=== PATIENT | male | born 1970 | race Two or more races ===

== ENCOUNTER 2025-04-07 10:44 | Inpatient (IN) | payer MEDICAID, SELFPAY ==
[2025-04-07] VITALS (7 sets, daily range): BP systolic 138–159; BP diastolic 72–82; PULSE 84–101; RESP 17–19; TEMP 37.4–38.7; O2SAT 98–100; BMI 23.8; BMI 23.5
--- NOTE | 2025-04-07 11:31 | XR_ITS ---
Examination: CT abdomen with intravenous contrast CT pelvis with intravenous contrast 2-D coronal reconstructions 2-D sagittal reconstructions Date and time of exam:April 07, 2025, 1930 hrs., Comparison July 17, 2021 Indications: Cirrhosis, vomiting blood this morning. CTDI: vol (mGy) 6.54 DLP: (mGycm) 407 Technique: Multiple axial sections of the abdomen and pelvis have been obtained. 64 slice high-resolution scanner used. 3 mm axial sections have been obtained, post intravenous injection 60 cc [id number] 2-D sagittal, coronal reconstructions obtained. Low dose protocols were performed. One or more of the following dose reduction techniques were used; automated exposure control, adjustment of the mA and/or KV according to patient size, use of iterative reconstruction technique. Findings: Mild to moderate enlargement left atrium No aspiration pneumonia Cirrhosis, 7 mm lesion upper right lobe of the liver Prominent splenomegaly Mild ascites Thickened gallbladder wall up to 5 mm Esophageal varices Perigastric varices Portosystemic collateral vessels medial to the spleen No pancreatic mass No common bile duct stones Aorta normal size Gastric mucosa is diffusely thickened Minimal right hydronephrosis Thickening of small bowel loops no obstruction Normal appendix Marked thickening of urinary bladder wall No significant prostatomegaly Marked thickening of the rectal wall Prominent osteopenia Impression: Cirrhosis Prominent splenomegaly 17 mm lesion upper right lobe of the liver, recommend MRI abdomen liver follow-up pre and postcontrast to exclude early hepatocellular carcinoma Mild ascites Technique the gallbladder wall, recommend repeat gallbladder sonography Esophageal varices Perigastric varices Gastritis Portal hypertension Hepatic colopathy, hepatic enteropathy Severe thickening of urinary bladder wall, consider cystitis bladder carcinoma not excluded Marked thickening of the rectal wall, recommend direct inspection
--- NOTE | 2025-04-07 11:32 | PD.EDRME ---
Rapid Medical Screening Exam RME Arrival date/time: 04/07/25 10:44 54-year-old male with history of alcohol cirrhosis presents to the emergency department today for complaints of abdominal cramping and episode of vomiting blood today Chief Complaint: GI Bleed
[2025-04-07 12:00] LABS: Basophils # (Auto) 0.0 Thou/mm3 (0.0-0.2); Basophils % (Auto) 1 % (0-2.5); Eosinophils # (Auto) 0.0 Thou/mm3 (0.0-0.5); Eosinophils % (Auto) 0 % (0-10); Hematocrit 29.3 % (41.0-53.0); Hemoglobin 9.5 g/dL (13.5-16.0); Immature Granulocytes Auto 0.03 Thou/mm3 (0.00-0.00); Lymphocytes # (Auto) 0.5 Thou/mm3 (1.0-4.8); Lymphocytes % (Auto) 8 % (10-50); Mean Corpuscular HGB Conc 32.4 g/dl (31.0-37.0); Mean Corpuscular Hemoglobin 26.3 pg (25.0-35.0); Mean Corpuscular Volume 81 fL (80-100); Monocytes # (Auto) 0.6 Thou/mm3 (0.0-0.8); Monocytes % (Auto) 10 % (0-12); Neutrophils # (Auto) 5.1 Thou/mm3 (1.8-7.7); Neutrophils % (Auto) 80 % (37-80); Nucleated Red Blood Cell # 0.00 Thou/mm3 (0.00-0.00); Nucleated Red Blood Cell % 0 /100 WBC (0); Platelet Count 82 Thou/mm3 (140-440); RDW Standard Deviation 59.8 fL (35.1-43.9); Red Blood Count 3.61 Miln/mm3 (4.50-5.90); White Blood Count 6.3 Thou/mm3 (3.8-10.6)
[2025-04-07 12:15] LABS: Alanine Aminotransferase 25 U/L (10-49); Albumin, Serum 3.6 gm/dL (3.5-5.0); Albumin/Globulin Ratio 1.1 (1.2-2.2); Alcohol, Blood Medical < 10.0 mg/dL (0-10.0); Alkaline Phosphatase 147 U/L (46-116); Amylase 110 U/L (30-118); Anion Gap 8 (7-16); Aspartate Amino Transferase 97 U/L (0-34); BUN/Creatinine Ratio 15 Ratio (12-20); Bilirubin,Total 2.5 mg/dL (0.3-1.2); Blood Urea Nitrogen 9 mg/dL (9-23); Calcium 8.5 mg/dL (8.3-10.6); Calcium (Corrected) 8.8 mg/dL (8.5-10.1); Carbon Dioxide 23.6 mMol/L (20.0-31.0); Chloride 106 mMol/L (98-107); Creatinine (Component) 0.6 mg/dL (0.6-1.3); Estimated Creatinine Clearance 149.9 mL/min (>60); Globulin 3.3 gm/dL (2.3-3.5); Glucose 162 mg/dL (74-106); Osmolality,Calculated 278 (275-295); Potassium 4.4 mMol/L (3.4-5.1); Sodium 138 mMol/L (136-145); Total Protein 6.9 gm/dL (5.7-8.2); eGFR > 60 See Note
[2025-04-07 12:17] LABS: INR 1.4 (0.9-1.3); Partial Thromboplastin Time 31.3 Seconds (22.0-36.0); Prothrombin Time 14.5 Seconds (9.0-12.2)
[2025-04-07 12:31] LABS: Amphetamine/Methamp Scrn,U Negative (Negative); Barbiturate Screen,Urine Negative (Negative); Benzodiazepines Screen,Urine Negative (Negative); Benzoylecgonine Screen, Ur Negative (Negative); Fentanyl Screen,Urine Negative (Negative); Opiate Screen,Urine Negative (Negative); THC Screen,Urine Negative (Negative)
--- NOTE | 2025-04-07 13:24 | PC.NURSE ---
CALLED CT, NO ANSWER.
--- NOTE | 2025-04-07 14:21 | PC.NURSE ---
PT WAITING FOR ROOM IN THE BACK TO GET IV AND IV MEDS. WILL GET CT AT THAT TIME.
--- NOTE | 2025-04-07 16:04 | PD.EDGIBLD ---
ED GI Bleed RME/HPI General Chief complaint: GI Bleed Stated complaint: VOMITING BLOOD THIS AM, HX CIRRHOSIS Time Seen by Provider: 04/07/25 14:02 Arrival date/time: 04/07/25 10:44 RME / HPI RME / HPI Narrative: 54-year-old male with history of alcohol cirrhosis presents to the emergency department today for complaints of abdominal cramping and episode of vomiting blood today, severity moderate. Patient also complained that the stool looks darker than usual. Patient continued to drink alcohol, consuming more than 5 tall cans of beers every day last drink yesterday. He was admitted in this hospital more than a year ago for upper GI bleed. Currently not taking any medication. Related Data Previous Rx's ?Medication ?Instructions ?Recorded ferrous sulfate 325 mg (65 mg 325 mg PO Q OTHER DAY #90 tabs 01/04/24 iron) tablet folic acid 1 mg tablet 1 mg PO QDAY #90 tabs 01/04/24 pantoprazole 40 mg tablet,delayed 40 mg PO QDAY #90 tabs 01/04/24 release thiamine HCl (vitamin B1) 100 mg 100 mg PO QDAY #90 tabs 01/04/24 tablet Allergies Allergy/AdvReac Type Severity Reaction Status Date / Time No Known Allergies Allergy Verified 10/30/23 18:27 Review of Systems Review of Systems Narrative Review of Systems: Review of system reviewed and within normal limits except mentioned in HPI ED Exam Narrative Physical exam: VITAL SIGNS: Reviewed. GENERAL APPEARANCE: Alert and interactive, follows commands, no acute distress, HEAD AND FACE: Non-traumatic. ENT: PERRL, pink conjunctivitis, eyelid no trauma, Mucous membrane moist. NECK: Supple, nontender, no nuchal rigidity. CHEST: No tenderness, no crepitus, no paradoxical movement, no retractions. LUNGS: Clear, well ventilated, symmetric, no rales, no wheezing, no ronchi, no stridor, good breath sounds bilaterally. HEART: Regular rate, regular rhythm, no murmur, no gallops. ABDOMEN: Soft, positive bowel sounds, nondistended, no guarding, nontender, no rebound, no masses, RECTAL: Deferred. GENITAL: Deferred. NEUROLOGICAL: Gross motor function intact sensory function intact, Appropriate for age. MUSCULOSKELETAL: low back nontender, full range of motion. EXTREMITIES: Nontender, full range of motion. SKIN: Color pink, dry, no rash, no lacerations, no abrasions, no contusions. LYMPHATICS: Deferred. Course Quality Measures none Orders Category Date Time Status COVID-19 Screening Questionnaire NOW Care 04/07/25 19:[address] Screening NOW Care 04/07/25 11:31 Active Decision to Admit X1 Care 04/07/25 19:42 Active NPO NOW Care 04/07/25 19:37 Active Occult Blood,Stool (Nursing) ONCE Care 04/07/25 16:03 Active Consult to Gastroenterology Stat Cons 04/07/25 16:04 Ordered Diet NPO (NOW) Diet 04/07/25 19:[address] abdomen pelvis w con Stat Exams 04/07/25 11:31 Completed XR chest 1V Stat Exams 04/07/25 18:55 Completed Alcohol, Blood Medical Stat Lab 04/07/25 11:41 Completed Amylase Stat Lab 04/07/25 11:41 Completed CBC Stat Lab 04/07/25 11:41 Completed Comprehensive Metabolic Panel Stat Lab 04/07/25 11:41 Completed Drug Screen,Urine Stat Lab 04/07/25 12:05 Completed Partial Thromboplastin Time Stat Lab 04/07/25 11:41 Completed Prothrombin Time with INR Stat Lab 04/07/25 11:41 Completed UA, C/S IF [Urinalysis, C/S if Indicated] Stat Lab 04/07/25 19:25 Completed Urine Culture Stat Lab 04/07/25 19:25 Received Acetaminophen Tab [Tylenol ES Tab] Med 04/07/25 19:05 Discontinued 1,000 mg PO X1 ONE Octreotide Acet Inj [SandoSTATIN Inj] Med 04/07/25 16:03 Discontinued 50 mcg IV X1 ONE Pantoprazole Inj [Protonix Inj] Med 04/07/25 11:31 Discontinued 80 mg IVP X1 ONE Sodium Chloride 0.9% [Ns] 100 ml Med 04/07/25 16:15 Active Octreotide Acet Inj [SandoSTATIN Inj] 1,000 mcg IV 50 mcg/hr Sodium Chloride 0.9% [Ns] 100 ml Med 04/08/25 12:15 Pending Octreotide Acet Inj [SandoSTATIN Inj] 1,000 mcg IV 50 mcg/hr cefTRIAXone/D5w 1gm IV premix [Rocephin/D5w 1gm IV Med 04/07/25 18:55 Discontinued premix] 1 gm in 50 ml IV X1 Vital Signs Vital signs: Vital Signs Temperature 99.8 F 04/07/25 11:36 Pulse Rate 101 H 04/07/25 11:36 Respiratory Rate 18 04/07/25 11:36 Blood Pressure 138/72 H 04/07/25 11:36 Pulse Oximetry (%) 99 04/07/25 11:36 Oxygen Delivery Method Room Air 04/07/25 11:36 GI Bleed MDM Narrative MDM Narrative:: 54-year-old male with history of alcohol cirrhosis presents to the emergency department today for complaints of abdominal cramping and episode of vomiting blood today, severity moderate. Patient also complained that the stool looks darker than usual. Patient continued to drink alcohol, consuming more than 5 tall cans of beers every day last drink yesterday. He was admitted in this hospital more than a year ago for upper GI bleed. Currently not taking any medication. Rectal exam was done by me, and tested positive strongly with occult blood. Patient's hemoglobin today was noted to be 5.5 hematocrit of 29.3. Was given IV Protonix IV Sandostatin and Sandostatin drip. Patient's urinalysis positive for UTI. Chest x-ray is negative for aspiration pneumonia. Patient was given ceftriaxone IV. Spoke with Dr. Wagner, GI specialist on-call, thank you Dr. Wagner Patient data External records reviewed:: None Clinical information provided by:: patient Social determinants that could affect healthcare access:: alcohol use Patient has the following chronic illnesses:: Liver cirrhosis, history of upper GI bleed How is presenting disease/condition affected by chronic disease/condition?: exacerbated by Evaluation data The following diagnostics were reviewed and interpreted by me:: lab results and radiology exam(s) Lab and/or radiology exams considered but not ordered:: Meds Interpretation Summary: See results and MDM Medications / Prescriptions Medications or Prescriptions considered but not ordered:: None Medication administrations:: Medication Administration History Acetaminophen (Acetaminophen 325 Mg Tablet) 650 mg PO Q6HR PRN PRN Reason: Fever >100.4 and pain Stop: 05/07/25 21:00 Octreotide Acetate 1,000 mcg/ (Sodium Chloride) 102 mls @ 5.1 mls/hr IV .Q20H CARLENE; Protocol Stop: 05/08/25 12:14 Octreotide Acetate 1,000 mcg/ (Sodium Chloride) 102 mls @ 5.1 mls/hr IV .Q20H ONE; Protocol Stop: 04/08/25 12:14 Last Admin: 04/07/25 16:31 Dose: 50 mcg/hr, 5.1 mls/hr Documented By: NURY Ceftriaxone Sodium/Dextrose (Rocephin/D5w 1gm Iv Premix) 1 gm in 50 mls @ 100 mls/hr IV QDAY CARLENE Stop: 04/14/25 20:59 Pantoprazole Sodium (Pantoprazole Inj 40 Mg Vial) 40 mg IVP BID CARLENE Stop: 05/07/25 20:59 Discontinued Medications Acetaminophen (Acetaminophen 500 Mg Tablet) 1,000 mg PO X1 ONE Stop: 04/07/25 19:06 Last Admin: 04/07/25 19:15 Dose: 1,000 mg Documented By: JOHANN Ceftriaxone Sodium/Dextrose (Rocephin/D5w 1gm Iv Premix) 1 gm in 50 mls @ 100 mls/hr IV X1 ONE Stop: 04/07/25 19:24 Last Infusion: 04/07/25 20:17 Dose: Infused Documented By: Admin: 04/07/25 19:23 Dose: 100 mls/hr Documented By: JOHANN Octreotide Acetate (Octreotide Acet Inj 50 Mcg/Ml Vial) 50 mcg IV X1 ONE Stop: 04/07/25 16:04 Last Admin: 04/07/25 16:32 Dose: 50 mcg Documented By: NURY Pantoprazole Sodium (Pantoprazole Inj 40 Mg Vial) 80 mg IVP X1 ONE Stop: 04/07/25 11:32 Last Admin: 04/07/25 16:31 Dose: 80 mg Documented By: NURY See results [facility] Consultations Consultation(s) initiated? (list below): Yes Diagnosis GI bleed differential diagnosis: Upper gastrointestinal hemorrhage and hematochezia Most likely diagnosis given after review of the tests above:: UTI, upper GI bleeding, chronic alcoholism liver cirrhosis Admission Indicated Admission indicated?: indicated Admission Request Was there a request for admission?: Yes Admission Attestation Admission request attestation: Discussed case with [Lainey ] from Hospitalist service regarding admission. Discussed patients ED course, exam findings, labs, and radiology results. The Hospitalist [agrees] to accept the patient for admission. Disposition Plan Disposition Plan: Admit Discharge Plan Plan Patient Disposition: Admit Acute Care w/in Hospital Discharge Disposition comment: Stable Problem List Clinical Impression: Acute upper GI bleed, UTI (urinary tract infection), Alcoholism, chronic, Cirrhosis of liver
[2025-04-07] MEDS: OCTREOTIDE ACET INJ 1,000 MCG in SODIUM CHLORIDE 0.9% 100 ML 5.1 MCG IV (16:31)
[2025-04-07] MEDS: OCTREOTIDE ACET INJ 50 mCg/ML VIAL IV (16:32)
--- NOTE | 2025-04-07 18:55 | XR_ITS ---
Examination: AP chest single view Technique: Portable sitting AP chest single view Date and time: April 07, 2025, 1859 hrs., Comparison July 04, 2022 Indications: Shortness of breath today. Findings: Minimal prominence left ventricle Ectatic thoracic aorta. Accentuation basilar bronchovascular markings. No lobar pneumonia or pulmonary edema. Moderate osteopenia Impression: Mild basilar bronchitis pattern
[2025-04-07] MEDS: ACETAMINOPHEN 500 MG TABLET 1000 MG PO (19:15)
[2025-04-07] MEDS: cefTRIAXone/D5w 1gm IV premix 1 GM/50 ML BAG IV (19:23)
[2025-04-07 19:39] LABS: Collection Type, Urine Clean Catch; Squamous Epithelial Cell,Urine 0 /hpf (0-5)
[2025-04-07 19:48] LABS: Bacteria,Urine 2+; Bilirubin,Urine Negative (Negative); Blood,Urine 1+ (Negative); Clarity,Urine Turbid (Clear/Hazy); Color,Urine Yellow (Lt Yel-Yel); Glucose, Urine Negative (Negative); Ketones,Urine Negative (Negative); Leukocyte Esterase,Urine Positive (Negative); Nitrite,Urine Positive (Negative); PH,Urine 7.5 (5.0-7.0); Protein,Urine 1+ (Neg - Trace); RBC,Urine 29 /hpf (0-3); Specific Gravity,Urine 1.039 (1.001-1.035); Urobilinogen,Urine Negative mg/dL (0.0-1.0); WBC,Urine 328 /hpf (0-5)
[2025-04-07 19:49] LABS: Culture Indicated,Urine Yes
--- NOTE | 2025-04-07 21:02 | ESHP_ITS ---
Documentation for date of: 04/07/25 [facility] History of Present Illness History of present illness: Mr. Castillo is a 54 year-old with past medical history of chronic alchohol use, liver cirrhosis, esophageal varices s/p banding who presented to the ED on 04/07/2025 with chief complaint of with vomiting, nausea, abdominal pain. Patient reports N/V and abdominal pain that started around 8am this morning. Patient endorse 3-4 episodes of hematemesis associated with intermittent nausea. Patient prior admission for esophageal varices last year. Found to have esophageal varices grade 3 for which was banded and ligated. Patient and sent home with Protonix. Patient also endorses acute onset lower quadrant crampy abdominal pain associated with melena. Patient reports he did not have melena on his previous admission. Patient states he has recent sick contact, was tested positive for COVID last week. He denies fever, chills, generalized bodyaches, pain headaches chest pain, shortness of breath and urinary symptoms. ED Course: - Initial vitals were BP 138/72, pulse 101, respiratory 18, temp 101.6, O2 sat 95% on room air - Labs on admission were significant for RBC 3.61, hemoglobin 9.5, hematocrit 29.3, Plt 82, PT 14.5, INR 1.4. T. bili 2.5, AST 97, alkaline phos 147 - UA showed pH 7.5, urine blood +1, leukocyte esterase positive, urine RBC 29, urine WBC 328, urine bacteria 2+ -YELITZA positive occult blood - COVID1 POSITIVE -Imaging included abdominal/pelvis CT shows cirrhosis, prominent splenomegaly Esophageal varices, perigastric varices, gastritis, portal hypertension, hepatic colopathy, hepatic enteropathy. Severe thickening of urinary bladder wall, marked thickening of the rectal wall, 17 mm lesion upper right lobe of the liver. Chest x-ray showed mild bibasilar similar bronchitis pattern -In the ED, patient was given Protonix 80 mg x 1, octreotide drip plus octreotide 15 mcg IV x 1, Tylenol -ED EMERGENCY ROOM DOCTOR consulted Dr. Wagner, GI specialist. Will admit for EGD tomorrow -Patient was admitted for upper GI bleed evaluation and management. Review of Systems Review of systems otherwise negative except what is mentioned above. Past Medical History: Noncontributory Family History: Cancer, [place], aunt- from cirrhotic liver. Surgical History: varices s/p banding previously followed Dr. Wagner, Social History: Drinks alcohol 12 packs of beer every day, chronic alcohol for 20 years Denies smoking or using illicit drug Occupation [employer]. . Current Medications: Protonix 40 mg Allergies: No known drug allergies Exam Vital Signs Temp Pulse Resp BP Pulse Ox O2 Del Method 100.5 F H 90 18 159/76 H 98 Room Air 04/07/25 20:28 04/07/25 18:52 04/07/25 18:52 04/07/25 18:52 04/07/25 18:52 04/07/25 18:52 Narrative Exam General: Patient appears flushed. No sweating or diaphoresis present. Skin: Warm, dry, intact. No rash or ecchymoses. Head: Normocephalic, atraumatic. Eye: Mild scleral icterus. PERRL. Throat: Oral mucosa moist. No obvious lesions in oropharynx. Cardiovascular: Regular rate and rhythm, no murmur, +S1/S2. Respiratory: Lungs are clear to auscultation, respirations unlabored, no crackles, no wheezing. Gastrointestinal: Soft, nontender, non-distended. No guarding or rebound tenderness. Extremities:Mild hand tremor noted on elevation. No edema, no cyanosis, no clubbing. Neuro: Alert and oriented x3.No focal deficits observed. Conversant, moving all extremities. Psychiatric: Cooperative, appropriate affect Results: Labs 04/11/25 05:46 04/11/25 05:46 Labs: Short CBC 04/07/25 Range/Units 11:41 WBC 6.3 (3.8-10.6) Thou/mm3 Hgb 9.5 L (13.5-16.0) g/dL Hct 29.3 L (41.0-53.0) % Plt Count 82 L (140-440) Thou/mm3 BMP 04/07/25 11:41 Sodium 138 Potassium 4.4 Chloride 106 Carbon Dioxide 23.6 BUN 9 Creatinine 0.6 Glucose 162 H Calcium 8.5 Liver Function 04/07/25 Range/Units 11:41 Total Bilirubin 2.5 H (0.3-1.2) mg/dL AST 97 H (0-34) U/L ALT 25 (10-49) U/L Alkaline Phosphatase 147 H (46-116) U/L Albumin 3.6 (3.5-5.0) gm/dL Urine 04/07/25 Range/Units 19:25 Urine Color Yellow (Lt Yel-Yel) Urine Clarity Turbid A (Clear/Hazy) Urine pH 7.5 H (5.0-7.0) Ur Specific Fouke 1.039 H (1.001-1.035) Urine Protein 1+ A (Neg - Trace) Urine Glucose (UA) Negative (Negative) Quality Measures Quality Measures VTE prophylaxis Medications Home Medications and Allergies Allergies Allergy/AdvReac Type Severity Reaction Status Date / Time No Known Allergies Allergy Verified 10/30/23 18:27 Visit Medications Acetaminophen (Acetaminophen 325 Mg Tablet) 650 mg PO Q6HR PRN PRN Reason: Fever >100.4 and pain Stop: 05/07/25 21:00 Octreotide Acetate 1,000 mcg/ (Sodium Chloride) 102 mls @ 5.1 mls/hr IV .Q20H CARLENE; Protocol Stop: 05/08/25 12:14 Octreotide Acetate 1,000 mcg/ (Sodium Chloride) 102 mls @ 5.1 mls/hr IV .Q20H ONE; Protocol Stop: 04/08/25 12:14 Last Admin: 04/07/25 16:31 Dose: 50 mcg/hr, 5.1 mls/hr Ceftriaxone Sodium/Dextrose (Rocephin/D5w 1gm Iv Premix) 1 gm in 50 mls @ 100 mls/hr IV QDAY CARLENE Stop: 04/14/25 20:59 Pantoprazole Sodium (Pantoprazole Inj 40 Mg Vial) 40 mg IVP BID CARLENE Stop: 05/07/25 20:59 Discontinued Medications Acetaminophen (Acetaminophen 500 Mg Tablet) 1,000 mg PO X1 ONE Stop: 04/07/25 19:06 Last Admin: 04/07/25 19:15 Dose: 1,000 mg Ceftriaxone Sodium/Dextrose (Rocephin/D5w 1gm Iv Premix) 1 gm in 50 mls @ 100 mls/hr IV X1 ONE Stop: 04/07/25 19:24 Last Infusion: 04/07/25 20:17 Dose: Infused Octreotide Acetate (Octreotide Acet Inj 50 Mcg/Ml Vial) 50 mcg IV X1 ONE Stop: 04/07/25 16:04 Last Admin: 04/07/25 16:32 Dose: 50 mcg Pantoprazole Sodium (Pantoprazole Inj 40 Mg Vial) 80 mg IVP X1 ONE Stop: 04/07/25 11:32 Last Admin: 04/07/25 16:31 Dose: 80 mg Assessment & Plan Plan Mr. Castillo is a 54 year-old with past medical history of chronic alchohol use, liver cirrhosis, esophageal varices s/p banding who presented to the ED on 04/07/2025 with chief complaint of with vomiting, hemetamesis, crampy abdominal pain. Admitted for UGIB evaluation and management. #Upper vs Lower GI 2/2 #Cirrhotic liver disease with advanced portal hypertension #Chronic alcohol use #Esophageal varices #Mild ascites #Gastritis #Hepatic enteropathy The patient has a history of chronic alcohol use and was previously treated for grade 3 esophageal varices with oozing blood and esophageal ulcers, which were banded and ligated. Presenting with nausea, hematemesis, and new melena, the patient continues to drink 16 cans of beer daily despite being aware of his cirrhotic liver. Chronic alcohol use has likely contributed to the progression of cirrhosis, worsening portal hypertension and leading to liver decompensation. This ongoing liver injury and increased portal pressure predispose the patient to recurrent variceal bleeding and other complications. CT abd/pelvis: cirrhosis, prominent splenomegaly Esophageal varices, perigastric varices, gastritis, portal hypertension, hepatic colopathy, hepatic enteropathy. T. bili 2.5, AST 97, alkaline phosphatase 147 SAAG>1.1 - indicating portal HTN Child-Escobar Score 9, CLASS C- End-stage cirrhosis with very poor prognosis. MELD Score 14- estimated 3-month mortality, worsen from last admission - Started ceftriaxone 1 g IV daily for SBP prophylaxis - Octreotide infusion at 50 mcg/h after loading dose of 50 mcg - Started Vitamin B1 100 mg qday - Started folic acid 1 mg qday - Started Protonix 40 mg - Advised complete abstinence of alcohol - Watch for alcohol withdrawal, follow [facility] protocol - GI consulted, recommend- NPO, EGD tomorrow #Microcytic anemia, chronic #Thrombocytopenia #Coagulopathy On admission hemoglobin hematocrit 29.3. Patient is actively bleeding with hematemesis and melena. PT 14.5 and INR 1.4, Plt 82. Coagulopathy given impaired liver function leading to reduced production of clotting and anticoagulant factors. -Type and screen -continue to monitor CBC -Transfuse if Hg<7 #Incidental CT finding of RUL Liver lesion #?Hepatocelluar carcinoma #Spenomegaly Likely secondary to decompensated liver cirrhosis. 17 mm lesion upper right lobe of the liver. - Radiology radiology recommend: MRI abdomen liver and follow-up pre and postcontrast to exclude early hepatocellular carcinoma #Positive COVID-19 Patient has recent sick contact, his . However he denies cough, fever, chills, body aches. On admission patient was febrile with temperature 101.6, WBC normal. Given Tylenol x1, fever resolve. CXR negative for pneumonia - Continue to monitor - Droplet and airborne precaution. #?Left bundle branch block Patient denies chest pain, palpitation. Troponin are negative. EKG showed sinus rhythm with possible left bundle branch block, QTc 487 - Consider consulting cardiology - continue to monitor on telemtry #Asymptomatic Pyuria Patient denies dysuria, urgency or frequency. UA positive for leukocyte esterase, urine RBC 29, urine WBC 328. U tox negative -Continue to monitor Hospital management: Lines: peripheral IV Diet: NPO GI prophylaxis: pantoprazole DVT prophylaxis: SCDs Disposition: tele for management of GIB CODE STATUS: Full code Patient seen and assessed under supervision of attending physician Dr. Meneses and discuss with senior resident Dr. Chew PGY-2 Krystle Cunningham MD PGY-1, Internal Medicine Please note: this document was transcribed using voice recognition technology; minor inaccuracies may be present. Attending Provider Attestation/Addendum I have examined the patient, reviewed labs and imaging findings, discussed the case with the resident(s), and reviewed entered orders. I agree with the plan of care as outlined in this note, with these additional summaries/recommendations: 54-year-old male with past medical history of alcohol use disorder complicated by cirrhosis of the liver with history of variceal bleeding presents to the ED with chief complaint of hematemesis. Reports 2 episodes prior to admission. Patient reports his last drink was approximately 36 hours ago when he had 6 beers. He reports a period of approximately 6 months after his previous admission for variceal bleeding where he stopped drinking. states that after he began feeling better, the drinking resumed. CT abdomen showed signs consistent with cirrhosis, portal hypertension, splenomegaly, 17 mm focal liver lesion concerning for HCC. He will be admitted for further workup and management of acute upper GI bleed, will initiate octreotide, Protonix, pending EGD. Luis Engel MD
--- NOTE | 2025-04-07 21:54 | PD.IMCONS ---
HPI Data of Consult Requesting Physician: Luis Engel MD Primary Care Provider: Physician No Primary/Family Consult Narrative Reason for consult: Hematemesis History of present illness: 54 years old male presented to the hospital with episodes of hematemesis with nausea vomiting abdominal pain and cramping He does have a history of excessive alcohol consumption drinking about 3-5 tall cans of beer every day He has been drinking up until yesterday He has been having dark melanotic stools also Presenting hemoglobin hematocrit 9.5 and 29.3 with a platelet count of 82,000 CT scan of the abdomen pelvis contrast shows cirrhosis splenomegaly 17 mm right lobe liver lesion and evidence of portal hypertension with periesophageal varices cc:: cc: Luis Engel MD Review of Systems Review of Systems Systems Reviewed: All systems reviewed, normal except as documented Past Medical History Surgical History OTHER SURGICAL HX: As in the history of present illness Meds Home Medications and Allergies Home Medications ?Medication ?Instructions ?Recorded ?Confirmed ?Type No Known Home Medications 04/08/25 04/08/25 History Allergies Allergy/AdvReac Type Severity Reaction Status Date / Time No Known Allergies Allergy Verified 10/30/23 18:27 Exam Vital Signs Temp Pulse Resp BP Pulse Ox O2 Del Method 100 F 84 19 147/77 H 98 Room Air 04/07/25 21:11 04/07/25 21:11 04/07/25 21:11 04/07/25 21:11 04/07/25 21:11 04/07/25 21:11 Constitutional Comments: Chronically ill-appearing Routine Respiratory Exam Comments: Normal to auscultation Routine Abdominal Exam Comments: Positive bowel sounds Results Labs 04/08/25 04:45 04/08/25 04:45 Labs: Short CBC 04/07/25 Range/Units 11:41 WBC 6.3 (3.8-10.6) Thou/mm3 Hgb 9.5 L (13.5-16.0) g/dL Hct 29.3 L (41.0-53.0) % Plt Count 82 L (140-440) Thou/mm3 BMP 04/07/25 11:41 Sodium 138 Potassium 4.4 Chloride 106 Carbon Dioxide 23.6 BUN 9 Creatinine 0.6 Glucose 162 H Calcium 8.5 Liver Function 04/07/25 Range/Units 11:41 Total Bilirubin 2.5 H (0.3-1.2) mg/dL AST 97 H (0-34) U/L ALT 25 (10-49) U/L Alkaline Phosphatase 147 H (46-116) U/L Albumin 3.6 (3.5-5.0) gm/dL Urine 04/07/25 Range/Units 19:25 Urine Color Yellow (Lt Yel-Yel) Urine Clarity Turbid A (Clear/Hazy) Urine pH 7.5 H (5.0-7.0) Ur Specific [place] 1.039 H (1.001-1.035) Urine Protein 1+ A (Neg - Trace) Urine Glucose (UA) Negative (Negative) Assessment and Plan Additional Assessment & Plan Additional Plan: # Hematemesis in the setting of cirrhotic liver disease secondary to alcohol Plan Admit the patient case discussed with the physician assistant manager bilingual Octreotide infusion at 50 mcg/h after loading dose of 50 mcg n.p.o. Consent obtained for fiberoptic esophagogastroduodenoscopy with possible biopsy possible therapeutic intervention under intravenous moderate sedation Serial CBC transfuse if the hemoglobin drops below 7 g Other medical problems include Cirrhotic liver disease with advanced portal hypertension leading to ascites splenomegaly and advanced portal systemic collaterals 17 mm lesion in the right lobe of the liver recommend AFP as well as pre and post contrast MRI of the liver 4 phase Watch for alcohol withdrawal Advised complete abstinence from alcohol Thank you very much for the opportunity to participate in the care of this patient
[2025-04-07] MEDS: FOLIC ACID INJ 1 MG/0.2 ML IVP (23:13)
[2025-04-07 23:38] LABS: Troponin I < 0.020 ng/mL (0.0-0.045)
[2025-04-08] VITALS (21 sets, daily range): BP systolic 102–161; BP diastolic 62–85; PULSE 81–104; RESP 14–20; TEMP 37.2–38.8; O2SAT 96–100
[2025-04-08] MEDS: ACETAMINOPHEN 325 MG TABLET 650 MG PO (05:05)
[2025-04-08 05:51] LABS: Basophils # (Auto) 0.0 Thou/mm3 (0.0-0.2); Basophils % (Auto) 0 % (0-2.5); Eosinophils # (Auto) 0.0 Thou/mm3 (0.0-0.5); Eosinophils % (Auto) 1 % (0-10); Hematocrit 28.1 % (41.0-53.0); Hemoglobin 8.9 g/dL (13.5-16.0); Immature Granulocytes Auto 0.02 Thou/mm3 (0.00-0.00); Lymphocytes # (Auto) 0.6 Thou/mm3 (1.0-4.8); Lymphocytes % (Auto) 9 % (10-50); Mean Corpuscular HGB Conc 31.7 g/dl (31.0-37.0); Mean Corpuscular Hemoglobin 26.4 pg (25.0-35.0); Mean Corpuscular Volume 83 fL (80-100); Monocytes # (Auto) 0.5 Thou/mm3 (0.0-0.8); Monocytes % (Auto) 8 % (0-12); Neutrophils # (Auto) 4.9 Thou/mm3 (1.8-7.7); Neutrophils % (Auto) 82 % (37-80); Nucleated Red Blood Cell # 0.00 Thou/mm3 (0.00-0.00); Nucleated Red Blood Cell % 0 /100 WBC (0); Platelet Count 86 Thou/mm3 (140-440); RDW Standard Deviation 61.5 fL (35.1-43.9); Red Blood Count 3.37 Miln/mm3 (4.50-5.90); White Blood Count 6.0 Thou/mm3 (3.8-10.6)
[2025-04-08 06:14] LABS: Anion Gap 10 (7-16); BUN/Creatinine Ratio 17 Ratio (12-20); Blood Urea Nitrogen 10 mg/dL (9-23); Calcium 8.0 mg/dL (8.3-10.6); Carbon Dioxide 23.5 mMol/L (20.0-31.0); Chloride 107 mMol/L (98-107); Creatinine (Component) 0.6 mg/dL (0.6-1.3); Estimated Creatinine Clearance 149.9 mL/min (>60); Glucose 127 mg/dL (74-106); Magnesium 1.5 mg/dL (1.6-2.6); Osmolality,Calculated 280 (275-295); Phosphorous 1.7 mg/dL (2.4-5.1); Potassium 3.6 mMol/L (3.4-5.1); Sodium 140 mMol/L (136-145); eGFR > 60 See Note
[2025-04-08] MEDS: OCTREOTIDE ACET INJ 1,000 MCG in SODIUM CHLORIDE 0.9% 100 ML 5.1 MCG IV (08:38)
[2025-04-08] MEDS: THIAMINE INJ 100 MG/ML VIAL 2 ML IVP (08:38)
[2025-04-08 09:59] LABS: AFP Non-Pregnant 7.20 ng/mL (<8.10)
[2025-04-08] MEDS: SOD PHOS ADDITIVE 15 MMOL in SODIUM CHLORIDE 0.9% 250 ML 250 ML 62.5 MMOL IV (10:02)
[2025-04-08] MEDS: Magnesium Sulfate 4 GM Ivpb 4 GM/50 ML BAG IV (10:02)
[2025-04-08 10:47] LABS: Alanine Aminotransferase 22 U/L (10-49); Albumin, Serum 3.3 gm/dL (3.5-5.0); Alkaline Phosphatase 117 U/L (46-116); Aspartate Amino Transferase 73 U/L (0-34); Bilirubin,Direct 1.2 mg/dL (0.0-0.3); Bilirubin,Total 2.3 mg/dL (0.3-1.2); Total Protein 6.3 gm/dL (5.7-8.2)
--- NOTE | 2025-04-08 11:19 | PC.SS ---
SS spoke to regarding patient's d/c plan. Pt is alert/oriented. Pt was admitted for Cirrhosis/GI Bleed. confirmed patient's demographic and contact information is correct on facesheet. Pt resides with and kids. Pt ambulates independently without assistance or DME. Pt is ok with all ADLs. Patient utilizes [facility]. , Candy Mcleod states she is patient's medical decision maker if she is unable. 's choice is for pt to return home upon d/c. states pt is not diabetic and is not on dialysis. Pt followed up with PCP last year. states she will schedule pt an appointment with PCP. D/C plan: Return home Next of Kin: Candy Mcleod, , phone# [phone] PCP: Dr. Eliezer Rosas from [facility] Address: Correct on facesheet
--- NOTE | 2025-04-08 11:57 | ESPR_ITS ---
<Statement entered by Ziyad Alegria MD - 04/08/25 15:26> Patient seen and assessed in hospital bed denies having any concerning symptoms at this time and denies having any hematemesis or melena while being admitted to the hospital. Patient has scheduled endoscopy with gastroenterology and continues to be on octreotide and Protonix. Patient does have liver lesions noted on CT imaging with the largest noted to be 17 mm along with bladder and rectal wall thickening; moreover, will order MR abdomen for better visualization of the liver lesions. Will continue monitoring the patient for any acute changes and follow-up on GI recommendations after endoscopy. I have personally seen and examined the patient. I agree with the resident's assessment and plan as documented below. Ziyad Alegria DO PGY-2 Internal Medicine - GME Documentation for date of: 04/08/25 Subjective Subjective Interval history: Pj Castillo is a 54 yo male with PMHx of chronic alcohol use, liver cirrhosis, esophageal varices s/p banding (2023) who is admitted for upper GI bleed evaluation and management. Patient had 3-4 episodes of hematemesis associated with intermittent nausea during morning of 04/07 at 8am. He had acute lower quadrant crampy abdominal pain with melena. Overnight, patient has had no acute events. Patient has improved abdominal pain, no reported bowel movements and he denies nausea, vomiting, constipation and diarrhea. His vitals noted for hypertension 161/73 and tachycardia 102. Labs significant for elevated PT 14.5, INR 1.4, PO4 1.4, Mg 1.5, Hg 8.9, Hct 28.1. He is being continued on Ocreotide and Protonix and tolerating well. On further history he notes he drinks 3 beers/day and has been a chronic alcoholic for 15- 20 years. Exam Vital Signs Temp Pulse Resp BP Pulse Ox O2 Del Method 98.9 F 102 H 18 161/73 H 99 Room Air 04/08/25 07:33 04/08/25 07:33 04/08/25 07:33 04/08/25 07:33 04/08/25 07:33 04/08/25 07:33 Narrative Exam General: Patient alert, oriented, in no acute distress. HEENT: Scleral icterus, Normocephalic, atraumatic. PERRLA, EOMI, no conjunctival injection. Oropharynx clear, mucous membranes moist. Neck: Supple, trachea midline, no thyromegaly or lymphadenopathy. Cardiac: Regular rate and rhythm, normal S1/S2, no murmurs, rubs, or gallops. Peripheral pulses 2+ and symmetric. No peripheral edema. Lungs: Normal effort, clear to auscultation bilaterally, no wheezes, rales, or rhonchi. Abdomen: Soft, non-tender, non-distended. Normoactive bowel sounds. No hepatosplenomegaly, no rebound/guarding. Extremities: Warm, well-perfused, no clubbing, cyanosis, or edema. Full range of motion, no joint tenderness. Skin: Warm, dry, intact. No rashes, lesions, or ecchymoses. Neuro: Alert and oriented ?3. Speech fluent. Cranial nerves II?XII grossly intact. Psych: Appropriate mood and affect. Cooperative, good eye contact. Objective Labs 04/09/25 04:50 04/09/25 04:50 Labs: Laboratory Results - last 24 hr 04/07/25 04/07/25 04/07/25 11:41 12:05 19:25 WBC 6.3 RBC 3.61 L Hgb 9.5 L Hct 29.3 L MCV 81 MCH 26.3 MCHC 32.4 RDW Std Deviation 59.8 H Plt Count 82 L Neut % (Auto) 80 Lymph % (Auto) 8 L [place] % (Auto) 10 Eos % (Auto) 0 Baso % (Auto) 1 Neut # (Auto) 5.1 Lymph # (Auto) 0.5 L [place] # (Auto) 0.6 Eos # (Auto) 0.0 Baso # (Auto) 0.0 Immature Gran # (Auto) 0.03 H Absolute Nucleated RBC 0.00 Immature Gran % 1 H Nucleated RBC % 0 PT 14.5 H INR 1.4 H APTT 31.3 Sodium 138 Potassium 4.4 Chloride 106 Carbon Dioxide 23.6 Anion Gap 8 BUN 9 Creatinine 0.6 Estim Creat Clear Calc 149.9 eGFR > 60 BUN/Creatinine Ratio 15 Glucose 162 H Calculated Osmolality 278 Calcium 8.5 Corrected Calcium 8.8 Phosphorus Magnesium Total Bilirubin 2.5 H Direct Bilirubin AST 97 H ALT 25 Alkaline Phosphatase 147 H Troponin I Total Protein 6.9 Albumin 3.6 Globulin 3.3 Albumin/Globulin Ratio 1.1 L Amylase 110 Tumor Marker AFP Ur Collection Type Clean Catch Urine Color Yellow Urine Clarity Turbid A Urine pH 7.5 H Ur Specific [place] 1.039 H Urine Protein 1+ A Urine Glucose (UA) Negative Urine Ketones Negative Urine Blood 1+ A Urine Nitrite Positive Urine Bilirubin Negative Urine Urobilinogen (Auto) Negative Ur Leukocyte Esterase Positive Urine RBC 29 H Urine WBC 328 H Ur Squamous Epith Cells 0 Urine Bacteria 2+ A Ur Culture Indicated? Yes Urine Opiates Screen Negative Urine Fentanyl Screen Negative Ur Barbiturates Screen Negative U Amphetamin/Meth Scrn Negative U Benzodiazepines Scrn Negative U Cocaine Metab Screen Negative U Marijuana (THC) Screen Negative Ethyl Alcohol < 10.0 Blood Type Antibody Screen Blood Bank Wristband ID 04/07/25 04/08/25 21:21 04:45 WBC 6.0 RBC 3.37 L Hgb 8.9 L Hct 28.1 L MCV 83 MCH 26.4 MCHC 31.7 RDW Std Deviation 61.5 H Plt Count 86 L Neut % (Auto) 82 H Lymph % (Auto) 9 L [place] % (Auto) 8 Eos % (Auto) 1 Baso % (Auto) 0 Neut # (Auto) 4.9 Lymph # (Auto) 0.6 L [place] # (Auto) 0.5 Eos # (Auto) 0.0 Baso # (Auto) 0.0 Immature Gran # (Auto) 0.02 H Absolute Nucleated RBC 0.00 Immature Gran % 0 Nucleated RBC % 0 PT INR APTT Sodium 140 Potassium 3.6 D Chloride 107 Carbon Dioxide 23.5 Anion Gap 10 BUN 10 Creatinine 0.6 Estim Creat Clear Calc 149.9 eGFR > 60 BUN/Creatinine Ratio 17 Glucose 127 H Calculated Osmolality 280 Calcium 8.0 L Corrected Calcium Phosphorus 1.7 L Magnesium 1.5 L Total Bilirubin 2.3 H Direct Bilirubin 1.2 H AST 73 H ALT 22 Alkaline Phosphatase 117 H D Troponin I < 0.020 Total Protein 6.3 Albumin 3.3 L Globulin Albumin/Globulin Ratio Amylase Tumor Marker AFP 7.20 Ur Collection Type Urine Color Urine Clarity Urine pH Ur Specific [place] Urine Protein Urine Glucose (UA) Urine Ketones Urine Blood Urine Nitrite Urine Bilirubin Urine Urobilinogen (Auto) Ur Leukocyte Esterase Urine RBC Urine WBC Ur Squamous Epith Cells Urine Bacteria Ur Culture Indicated? Urine Opiates Screen Urine Fentanyl Screen Ur Barbiturates Screen U Amphetamin/Meth Scrn U Benzodiazepines Scrn U Cocaine Metab Screen U Marijuana (THC) Screen Ethyl Alcohol Blood Type O Positive Antibody Screen NEGATIVE Blood Bank Wristband ID Yes Quality Measures Quality Measures VTE prophylaxis Assessment & Plan Assessment Current Active Medications: Generic Name Dose Route Start Last Admin Trade Name Freq PRN Reason Stop Dose Admin Acetaminophen 650 mg 04/07/25 21:01 04/08/25 05:05 Acetaminophen 325 Mg Tablet PO 05/07/25 21:00 650 mg Q6HR PRN Administration Fever >100.4 and pain Diazepam 2.5 mg 04/08/25 00:47 Diazepam Inj 5 Mg/Ml Vial 2 Ml IVP X1 PRN Breakthrough Agitation Diazepam 5 mg 04/08/25 00:47 Diazepam Inj 5 Mg/Ml Vial 2 Ml IVP 04/13/25 00:46 Q2HR PRN CIWA SCORE 14-19 Folic Acid 1 mg 04/07/25 22:00 04/08/25 10:15 Folic Acid Inj 1 Mg/0.2 Ml IVP 05/07/25 21:59 Not Given QDAY CARLENE Octreotide Acetate 1,000 mcg/ 102 mls @ 5.1 mls/hr 04/08/25 12:15 04/08/25 08:38 Sodium Chloride IV 05/08/25 12:14 50 mcg/hr .Q20H CARLENE 5.1 mls/hr Protocol Administration 50 MCG/HR Octreotide Acetate 1,000 mcg/ 102 mls @ 5.1 mls/hr 04/07/25 16:15 04/07/25 16:31 Sodium Chloride IV 04/08/25 12:14 50 mcg/hr .Q20H ONE 5.1 mls/hr Protocol Administration 50 MCG/HR Magnesium Sulfate 4 gm in 50 mls @ 12.5 mls/hr 04/08/25 08:52 04/08/25 10:02 Magnesium Sulfate Ivpb IV 04/08/25 12:51 12.5 mls/hr X1 ONE Administration Sodium Phosphate 15 mmol/ 255 mls @ 62.5 mls/hr 04/08/25 08:54 04/08/25 10:02 Sodium Chloride IV 04/08/25 12:58 62.5 mls/hr X1 ONE Administration Ceftriaxone Sodium/Dextrose 1 gm in 50 mls @ 100 mls/hr 04/08/25 09:00 04/08/25 10:15 Rocephin/D5w 1gm Iv Premix IV 04/15/25 08:59 Not Given QDAY CARLENE Pantoprazole Sodium 40 mg 04/08/25 09:00 04/08/25 08:38 Pantoprazole Inj 40 Mg Vial IVP 05/08/25 08:59 40 mg BID CARLENE Administration Thiamine HCl 100 mg 04/08/25 09:00 04/08/25 08:38 Thiamine Inj 100 Mg/Ml Vial 2 Ml IVP 05/08/25 08:59 100 mg QDAY CARLENE Administration Plan 54 year old male with PMHx of chronic alcohol use, liver cirrhosis, esophageal varices s/p banding (2023) admitted for evaluation and management of upper GI bleed. #Hematemesis iso decompensated cirrhotic liver disease 2/2 to alcohol #Chronic alcohol use Patient has history of chronic alcohol use for 20 years and drinks about 3 beers daily and drank up to 5 tall beer cans during episode of hematemesis which brought him to ED. The chronic alcohol use has led to fibrosis of his liver and degeneration of hepatocytes leading to worsening portal hypertension and decompensation of the liver. Patient was hospitalized in 12/2023 for esophageal varices requiring banding discharged on pantoprazole but not propranolol due to bradycardia at the time. CT abd/pelvis (04/07): Cirrhosis, prominent splenomegaly, esophageal varices, perigastric varices, gastritis, portal hypertension, hepatic colopathy, hepatic enteropathy T. bili 2.3, AST 73, ALP 117 Child Escobar Score 8 - Class B: 1 year survival rate of 80% MELD Score 14 - 6% estimated 3 month mortality MADDREY Score 11- No indication for steroid treatment for alcoholic hepatitis Plan - Start Ceftriaxone 1gm IV for SBP prophylaxis - Continue Octreotide infusion - Continue Pantoprazole 40mg IVP BID - NPO for planned EGD with possible biopsy - Monitor nuetrophil count and WBC for SBP - Replete electrolytes Phosphorus and Magnesium if needed - Watch for alcohol withdrawal, follow [facility] protocol - Continue Folic Acid 1mg IVP QDAY - Continue Vitamin B12 100mg IVP QDAY #CT finding of RUL Liver Lesion CT abd/pelvis found instance of 7 mm lesion in the right upper lobe of the liver along with bladder and rectal wall thickening. AFP was found to be negative. Would consider inpatient vs outpatient MRI to rule out hepatocellular carcinoma. Plan - Pending abdominal MRI results #Microcytic anemia, chronic #Thrombocytopenia #Coagulopathy Hemoglobin 8.9, hematocrit 28.1 and patient had 3-4 episodes of hematemesis and melena. PT 14.5 and INR 1.4, Plt 86. Coagulopathy given impaired liver function leading to reduced production of clotting and anticoagulant factors. Patient is blood type O positive and negative on antibody screen. Plan -continue to monitor CBC -Transfuse if Hg<7 #Positive COVID-19 Patient has recent sick contact, his . Denies cough, fever, chills, body aches. On admission patient was febrile with temperature 101.6, WBC normal. Given Tylenol x1, fever resolved. CXR negative for pneumonia. Plan - Continue to monitor - Droplet and airborne precaution. Hospital Maintenance: Dispo: Medtele DVT ppx: SCDs GI ppx: Protonix Diet: NPO IV Lines: PIV Code Status: Full Code Patient seen and assessed under supervision of attending physician Dr. Bach. Dorian Torres [facility], Internal Medicine Attending Provider Attestation/Addendum I have discussed and was present for the essential components of the history, physical examination, diagnosis, and treatment plan with the resident. I agree with the patient's care as documented by the resident and amended herein by me. Petr Bach DO. Although this document has been carefully reviewed, there may still be some phonetic and other typographical errors. These errors are purely grammatical due to imperfections in the software program and should not be construed in any way to compromise the substance of the patient's medical care during this visit.
[2025-04-09] VITALS: BP 132/75; PULSE 82; PULSE 89; RESP 20; TEMP 37.2; O2SAT 96
[2025-04-09 04:00] VITALS: BP 140/82; PULSE 86; PULSE 96; RESP 18; TEMP 37.3; O2SAT 97
[2025-04-09] MEDS: OCTREOTIDE ACET INJ 1,000 MCG in SODIUM CHLORIDE 0.9% 100 ML 5.1 MCG IV (05:42)
[2025-04-09 06:11] LABS: Basophils # (Auto) 0.0 Thou/mm3 (0.0-0.2); Basophils % (Auto) 0 % (0-2.5); Eosinophils # (Auto) 0.1 Thou/mm3 (0.0-0.5); Eosinophils % (Auto) 2 % (0-10); Hematocrit 28.8 % (41.0-53.0); Hemoglobin 9.1 g/dL (13.5-16.0); Immature Granulocytes Auto 0.03 Thou/mm3 (0.00-0.00); Lymphocytes # (Auto) 0.7 Thou/mm3 (1.0-4.8); Lymphocytes % (Auto) 13 % (10-50); Mean Corpuscular HGB Conc 31.6 g/dl (31.0-37.0); Mean Corpuscular Hemoglobin 26.9 pg (25.0-35.0); Mean Corpuscular Volume 85 fL (80-100); Monocytes # (Auto) 0.5 Thou/mm3 (0.0-0.8); Monocytes % (Auto) 9 % (0-12); Neutrophils # (Auto) 4.0 Thou/mm3 (1.8-7.7); Neutrophils % (Auto) 75 % (37-80); Nucleated Red Blood Cell # 0.00 Thou/mm3 (0.00-0.00); Nucleated Red Blood Cell % 0 /100 WBC (0); Platelet Count 86 Thou/mm3 (140-440); RDW Standard Deviation 64.4 fL (35.1-43.9); Red Blood Count 3.38 Miln/mm3 (4.50-5.90); White Blood Count 5.4 Thou/mm3 (3.8-10.6)
[2025-04-09 06:23] LABS: Alanine Aminotransferase 17 U/L (10-49); Albumin, Serum 3.4 gm/dL (3.5-5.0); Albumin/Globulin Ratio 1.1 (1.2-2.2); Alkaline Phosphatase 114 U/L (46-116); Anion Gap 10 (7-16); Aspartate Amino Transferase 52 U/L (0-34); BUN/Creatinine Ratio 16 Ratio (12-20); Bilirubin,Total 2.2 mg/dL (0.3-1.2); Blood Urea Nitrogen 11 mg/dL (9-23); Calcium 8.5 mg/dL (8.3-10.6); Calcium (Corrected) 9.0 mg/dL (8.5-10.1); Carbon Dioxide 23.6 mMol/L (20.0-31.0); Chloride 110 mMol/L (98-107); Creatinine (Component) 0.7 mg/dL (0.6-1.3); Estimated Creatinine Clearance 128.5 mL/min (>60); Globulin 3.2 gm/dL (2.3-3.5); Glucose 106 mg/dL (74-106); Magnesium 2.1 mg/dL (1.6-2.6); Osmolality,Calculated 286 (275-295); Phosphorous 1.9 mg/dL (2.4-5.1); Potassium 3.6 mMol/L (3.4-5.1); Sodium 144 mMol/L (136-145); Total Protein 6.6 gm/dL (5.7-8.2); eGFR > 60 See Note
[2025-04-09 07:35] VITALS: BP 123/68; PULSE 80; RESP 18; TEMP 37.2; O2SAT 97
--- NOTE | 2025-04-09 08:24 | PD.RESPRO ---
Documentation for date of: 04/09/25 Subjective Subjective Interval history: 54 yo male with PMHx of chronic alcohol use, liver cirrhosis, esophageal varices s/p banding admitted for management of upper GI bleed. Patient had no acute events overnight with stable vitals. He denies abdominal pain, nausea, vomiting, fever, chills, no BM and he feels overall better. EGD from 04/08 showed Grade II varices found in the lower 3rd of esophagus with 3 bands successfully placed; diffuse moderate inflammation characterized by erythema found in the entire examined stomach; duodenum was normal. Labs significant for downtrending Hg 9.1, Hct 28.8, AST 52, ALT 17, ALP 114. Exam Vital Signs Temp Pulse Resp BP Pulse Ox O2 Del Method O2 Flow Rate 99.0 F 80 18 123/68 97 Room Air 3 04/09/25 07:35 04/09/25 07:35 04/09/25 07:35 04/09/25 07:35 04/09/25 07:35 04/09/25 07:35 04/09/25 04:00 Narrative Exam General: Patient alert, oriented, in no acute distress. HEENT: Normocephalic, atraumatic. PERRLA, EOMI, no scleral icterus or conjunctival injection. Oropharynx clear, mucous membranes moist. Neck: Supple, trachea midline, no thyromegaly or lymphadenopathy. Cardiac: Regular rate and rhythm, normal S1/S2, no murmurs, rubs, or gallops. Peripheral pulses 2+ and symmetric. No peripheral edema. Lungs: Normal effort, clear to auscultation bilaterally, no wheezes, rales, or rhonchi. Abdomen: Soft, non-tender, non-distended. Normoactive bowel sounds. No hepatosplenomegaly, no rebound/guarding. Extremities: Warm, well-perfused, no clubbing, cyanosis, or edema. Full range of motion, no joint tenderness. Skin: Warm, dry, intact. No rashes, lesions, or ecchymoses. Neuro: Alert and oriented ?3. Speech fluent. Cranial nerves II?XII grossly intact. Psych: Appropriate mood and affect. Cooperative, good eye contact. Objective Labs 04/09/25 04:50 04/09/25 04:50 Labs: Laboratory Results - last 24 hr 04/08/25 04/09/25 04:45 04:50 WBC 5.4 RBC 3.38 L Hgb 9.1 L Hct 28.8 L MCV 85 MCH 26.9 MCHC 31.6 RDW Std Deviation 64.4 H Plt Count 86 L Neut % (Auto) 75 Lymph % (Auto) 13 [place] % (Auto) 9 Eos % (Auto) 2 Baso % (Auto) 0 Neut # (Auto) 4.0 Lymph # (Auto) 0.7 L [place] # (Auto) 0.5 Eos # (Auto) 0.1 Baso # (Auto) 0.0 Immature Gran # (Auto) 0.03 H Absolute Nucleated RBC 0.00 Immature Gran % 1 H Nucleated RBC % 0 Sodium 144 Potassium 3.6 Chloride 110 H Carbon Dioxide 23.6 Anion Gap 10 BUN 11 Creatinine 0.7 Estim Creat Clear Calc 128.5 eGFR > 60 BUN/Creatinine Ratio 16 Glucose 106 Calculated Osmolality 286 Calcium 8.5 Corrected Calcium 9.0 Phosphorus 1.9 L Magnesium 2.1 Total Bilirubin 2.3 H 2.2 H Direct Bilirubin 1.2 H AST 73 H 52 H ALT 22 17 Alkaline Phosphatase 117 H D 114 Total Protein 6.3 6.6 Albumin 3.3 L 3.4 L Globulin 3.2 Albumin/Globulin Ratio 1.1 L Tumor Marker AFP 7.20 Quality Measures Quality Measures VTE prophylaxis Assessment & Plan Assessment Current Active Medications: Generic Name Dose Route Start Last Admin Trade Name Freq PRN Reason Stop Dose Admin Acetaminophen 650 mg 04/07/25 21:01 04/08/25 05:05 Acetaminophen 325 Mg Tablet PO 05/07/25 21:00 650 mg Q6HR PRN Administration Fever >100.4 and pain Diazepam 2.5 mg 04/08/25 00:47 Diazepam Inj 5 Mg/Ml Vial 2 Ml IVP X1 PRN Breakthrough Agitation Diazepam 5 mg 04/08/25 00:47 Diazepam Inj 5 Mg/Ml Vial 2 Ml IVP 04/13/25 00:46 Q2HR PRN CIWA SCORE 14-19 Folic Acid 1 mg 04/07/25 22:00 04/08/25 10:15 Folic Acid Inj 1 Mg/0.2 Ml IVP 05/07/25 21:59 Not Given QDAY CARLENE Octreotide Acetate 1,000 mcg/ 102 mls @ 5.1 mls/hr 04/08/25 12:15 04/09/25 05:42 Sodium Chloride IV 05/08/25 12:14 50 mcg/hr .Q20H CARLENE 5.1 mls/hr Protocol Administration 50 MCG/HR Ceftriaxone Sodium/Dextrose 1 gm in 50 mls @ 100 mls/hr 04/08/25 09:00 04/08/25 10:15 Rocephin/D5w 1gm Iv Premix IV 04/15/25 08:59 Not Given QDAY CARLENE Potassium Phosphate 15 mmol in 250 mls @ 62.5 mls/hr 04/09/25 08:14 Pot Phos 15 Mmol In Ns 250 Ml IV 04/09/25 16:13 Q4H CARLENE Pantoprazole Sodium 40 mg 04/08/25 09:00 04/08/25 20:02 Pantoprazole Inj 40 Mg Vial IVP 05/08/25 08:59 40 mg BID CARLENE Administration Thiamine HCl 100 mg 04/08/25 09:00 04/08/25 08:38 Thiamine Inj 100 Mg/Ml Vial 2 Ml IVP 05/08/25 08:59 100 mg QDAY CARLENE Administration Plan 54 year old male with PMHx of chronic alcohol use, liver cirrhosis, esophageal varices s/p banding (12/2023, 03/2025) admitted for evaluation and management of upper GI bleed. #Hematemesis iso decompensated cirrhotic liver disease 2/2 to alcohol #Chronic alcohol use EGD from 04/08 showed Grade II varices found in the lower 3rd of esophagus with 3 bands sucessfully placed; diffuse moderate inflammation characterized by erythema found in entire examined stomach; duodenum was normal. Given findings of nonbleeding varices, prophylactic treatment with low dose Coreg will be started, first line treatment. Can discontinue Ceftriaxone for SBP prophylaxis. Will continue Ocreotide for 2 more days, first dose on 04/07. CT abd/pelvis (04/07): Cirrhosis, prominent splenomegaly, esophageal varices, perigastric varices, gastritis, portal hypertension, hepatic colopathy, hepatic enteropathy T. bili 2.2, AST 53, ALP 114 Child Escobar Score 8 - Class B: 1 year survival rate of 80% MELD Score 14 - 6% estimated 3 month mortality MADDREY Score 11- No indication for steroid treatment for alcoholic hepatitis Plan - Discontinue Ceftriaxone 1gm IV for SBP prophylaxis - Discontinue Pantoprazole 40mg IVP BID - Continue Octreotide infusion for 2 more days - Monitor nuetrophil count and WBC for SBP - Replete electrolytes Phosphorus and Magnesium if needed - Watch for alcohol withdrawal, follow [facility] protocol - Continue Folic Acid 1mg IVP QDAY - Continue Vitamin B12 100mg IVP QDAY #CT finding of RUL Liver Lesion CT abd/pelvis found instance of 7 mm lesion in the right upper lobe of the liver along with bladder and rectal wall thickening. AFP was found to be negative. Would consider inpatient vs outpatient MRI to rule out hepatocellular carcinoma. Plan - Pending abdominal MRI results #Microcytic anemia, chronic #Thrombocytopenia #Coagulopathy Hemoglobin 8.9, hematocrit 28.1 and patient had 3-4 episodes of hematemesis and melena. PT 14.5 and INR 1.4, Plt 86. Coagulopathy given impaired liver function leading to reduced production of clotting and anticoagulant factors. Patient is blood type O positive and negative on antibody screen. Plan -continue to monitor CBC -Transfuse if Hg<7 #Positive COVID-19 Patient has recent sick contact, his . Denies cough, fever, chills, body aches. On admission patient was febrile with temperature 101.6, WBC normal. Given Tylenol x1, fever resolved. CXR negative for pneumonia. Plan - Continue to monitor - Droplet and airborne precaution. Hospital Maintenance: Dispo: Medtele DVT ppx: SCDs GI ppx: Protonix Diet: NPO IV Lines: PIV Code Status: Full Code Patient seen and assessed under supervision of attending physician Dr. Bach. Dorian Torres [facility], Internal Medicine Attending Provider Attestation/Addendum I have discussed and was present for the essential components of the history, physical examination, diagnosis, and treatment plan with the resident. I agree with the patient's care as documented by the resident and amended herein by me. Petr Bach DO. Although this document has been carefully reviewed, there may still be some phonetic and other typographical errors. These errors are purely grammatical due to imperfections in the software program and should not be construed in any way to compromise the substance of the patient's medical care during this visit. Patient seen and evaluated this AM. No acute events overnight, Hemoglobin stable overnight, endoscopy showed grade 2 varices in the lower third of the esophagus which were medium in size and successfully banded. Patient will need 5 days total of octreotide, will need 2 more days prior to discharge per gastroenterology recommendations. Will start patient on prophylactic Coreg to prevent recurrence in the future after discharge, will continue to monitor closely while he is here.
[2025-04-09] MEDS: THIAMINE INJ 100 MG/ML VIAL 2 ML IVP (08:28)
[2025-04-09] MEDS: cefTRIAXone/D5w 1gm IV premix 1 GM/50 ML BAG IV (08:28)
[2025-04-09] MEDS: POT PHOS 15 mMol in NS 250 ML 15 MMOL/250 ML BAG 62.5 MMOL IV ×2 (09:11→16:11)
--- NOTE | 2025-04-09 09:16 | PC.SS ---
Follow up note: Pt requires 3 more days of IV Octreotide. Pt will return home upon dc.
--- NOTE | 2025-04-09 11:10 | XR_ITS ---
Examination: MRI abdomen with intravenous contrast. MRI abdomen without intravenous contrast. Date and time of exam: April 09, 2025 1130 hours INDICATIONS: Cirrhosis vomiting beginning 2 days ago, CT study abdomen 04/07/2025 17 mm right lobe liver lesion Technique: Multiple axial, sagittal and coronal sections of the abdomen obtained. Transverse images, TR 6020, TE 107. T1 weighted transverse images, TR 582, TE 9.5. T2-weighted sagittal images, TR 4000, TE 105. T2-weighted sagittal images, TR 4000, TE 5. Coronal images, TR 4210, TE 107. Axial and coronal images are obtained post 19 cc intravenous injection, gadolinium. Findings: Cirrhosis, liver nodular in contour Considerable patient motion on this study Hepatomegaly, marked splenomegaly Mild ascites No pancreatic mass No hydronephrosis Nonenhancing upper right lobe liver lesion 10 mm Subtle enhancement posterior right lobe the liver, image 33, measuring 29 mm IMPRESSION: Cirrhosis Significant bilateral splenomegaly Mild ascites Nonenhancing 10 mm upper right lobe liver lesion Abnormal enhancement posterior right lobe the liver, 29 mm, recommend 3 month follow-up MRI abdomen liver pre and postcontrast
[2025-04-09 15:23] VITALS: BMI 23.6
[2025-04-09 16:00] VITALS: BP 132/68; PULSE 84; RESP 18; TEMP 37.2; O2SAT 97
--- NOTE | 2025-04-09 16:28 | ESPR_ITS ---
Documentation for date of: 04/09/25 Subjective Subjective Interval history: Hemoglobin hematocrit relatively stable Case discussed with the internal medicine team Okay to discharge patient home to be followed by the PCP Exam Vital Signs Temp Pulse Resp BP Pulse Ox O2 Del Method O2 Flow Rate 99.0 F 80 18 123/68 97 Room Air 3 04/09/25 07:35 04/09/25 07:35 04/09/25 07:35 04/09/25 07:35 04/09/25 07:35 04/09/25 07:35 04/09/25 04:00 Objective Labs 04/09/25 04:50 04/09/25 04:50 Labs: Laboratory Results - last 24 hr 04/09/25 04:50 WBC 5.4 RBC 3.38 L Hgb 9.1 L Hct 28.8 L MCV 85 MCH 26.9 MCHC 31.6 RDW Std Deviation 64.4 H Plt Count 86 L Neut % (Auto) 75 Lymph % (Auto) 13 [place] % (Auto) 9 Eos % (Auto) 2 Baso % (Auto) 0 Neut # (Auto) 4.0 Lymph # (Auto) 0.7 L [place] # (Auto) 0.5 Eos # (Auto) 0.1 Baso # (Auto) 0.0 Immature Gran # (Auto) 0.03 H Absolute Nucleated RBC 0.00 Immature Gran % 1 H Nucleated RBC % 0 Sodium 144 Potassium 3.6 Chloride 110 H Carbon Dioxide 23.6 Anion Gap 10 BUN 11 Creatinine 0.7 Estim Creat Clear Calc 128.5 eGFR > 60 BUN/Creatinine Ratio 16 Glucose 106 Calculated Osmolality 286 Calcium 8.5 Corrected Calcium 9.0 Phosphorus 1.9 L Magnesium 2.1 Total Bilirubin 2.2 H AST 52 H ALT 17 Alkaline Phosphatase 114 Total Protein 6.6 Albumin 3.4 L Globulin 3.2 Albumin/Globulin Ratio 1.1 L Impressions Impression: Esophageal variceal bleeding status post band ligation Okay to discharge patient home to be followed by the PCP Avoid NSAIDs Send patient home on a PPI twice daily Assessment & Plan A&P Narrative # Hematemesis in the setting of cirrhotic liver disease secondary to alcohol Plan Admit the patient case discussed with the physician product development assistant Octreotide infusion at 50 mcg/h after loading dose of 50 mcg n.p.o. Consent obtained for fiberoptic esophagogastroduodenoscopy with possible biopsy possible therapeutic intervention under intravenous moderate sedation Serial CBC transfuse if the hemoglobin drops below 7 g Other medical problems include Cirrhotic liver disease with advanced portal hypertension leading to ascites splenomegaly and advanced portal systemic collaterals 17 mm lesion in the right lobe of the liver recommend AFP as well as pre and post contrast MRI of the liver 4 phase Watch for alcohol withdrawal Advised complete abstinence from alcohol Thank you very much for the opportunity to participate in the care of this patient Time Spent With Patient Time: Total time spent is greater than 50% in coordination of care (as documented) at patient's floor/unit and/or counseling patient:
[2025-04-09 17:32] VITALS: BP 132/68; PULSE 84
[2025-04-09 20:00] VITALS: BP 137/74; PULSE 64; PULSE 72; RESP 16; TEMP 37.4; O2SAT 99
[2025-04-10] VITALS (8 sets, daily range): BP systolic 125–134; BP diastolic 61–72; PULSE 61–87; RESP 16–19; TEMP 36.4–37.1; O2SAT 94–99
[2025-04-10] MEDS: OCTREOTIDE ACET INJ 1,000 MCG in SODIUM CHLORIDE 0.9% 100 ML 5.1 MCG IV (02:47)
[2025-04-10 06:16] LABS: Basophils # (Auto) 0.0 Thou/mm3 (0.0-0.2); Basophils % (Auto) 0 % (0-2.5); Eosinophils # (Auto) 0.3 Thou/mm3 (0.0-0.5); Eosinophils % (Auto) 7 % (0-10); Hematocrit 26.0 % (41.0-53.0); Hemoglobin 8.3 g/dL (13.5-16.0); Immature Granulocytes Auto 0.02 Thou/mm3 (0.00-0.00); Lymphocytes # (Auto) 0.8 Thou/mm3 (1.0-4.8); Lymphocytes % (Auto) 20 % (10-50); Mean Corpuscular HGB Conc 31.9 g/dl (31.0-37.0); Mean Corpuscular Hemoglobin 27.3 pg (25.0-35.0); Mean Corpuscular Volume 86 fL (80-100); Monocytes # (Auto) 0.4 Thou/mm3 (0.0-0.8); Monocytes % (Auto) 11 % (0-12); Neutrophils # (Auto) 2.4 Thou/mm3 (1.8-7.7); Neutrophils % (Auto) 62 % (37-80); Nucleated Red Blood Cell # 0.02 Thou/mm3 (0.00-0.00); Nucleated Red Blood Cell % 1 /100 WBC (0); Platelet Count 111 Thou/mm3 (140-440); RDW Standard Deviation 63.2 fL (35.1-43.9); Red Blood Count 3.04 Miln/mm3 (4.50-5.90); White Blood Count 3.9 Thou/mm3 (3.8-10.6)
[2025-04-10 06:56] LABS: Alanine Aminotransferase 18 U/L (10-49); Albumin, Serum 3.2 gm/dL (3.5-5.0); Albumin/Globulin Ratio 1.0 (1.2-2.2); Alkaline Phosphatase 106 U/L (46-116); Anion Gap 9 (7-16); Aspartate Amino Transferase 61 U/L (0-34); BUN/Creatinine Ratio 12 Ratio (12-20); Bilirubin,Total 2.1 mg/dL (0.3-1.2); Blood Urea Nitrogen 7 mg/dL (9-23); Calcium 8.5 mg/dL (8.3-10.6); Calcium (Corrected) 9.1 mg/dL (8.5-10.1); Carbon Dioxide 23.0 mMol/L (20.0-31.0); Chloride 105 mMol/L (98-107); Creatinine (Component) 0.6 mg/dL (0.6-1.3); Estimated Creatinine Clearance 145.3 mL/min (>60); Globulin 3.1 gm/dL (2.3-3.5); Glucose 95 mg/dL (74-106); Magnesium 1.8 mg/dL (1.6-2.6); Osmolality,Calculated 271 (275-295); Phosphorous 2.8 mg/dL (2.4-5.1); Potassium 3.8 mMol/L (3.4-5.1); Sodium 137 mMol/L (136-145); Total Protein 6.3 gm/dL (5.7-8.2); eGFR > 60 See Note
[2025-04-10] MEDS: Magnesium Sulfate 4 GM Ivpb 4 GM/50 ML BAG IV (09:05)
[2025-04-10] MEDS: THIAMINE INJ 100 MG/ML VIAL 2 ML IVP (09:06)
[2025-04-10] MEDS: FOLIC ACID INJ 1 MG/0.2 ML IVP (11:33)
[2025-04-10] MEDS: NITROFURANTOIN MACRO 100 MG CAPSULE PO ×2 (11:33→20:11)
--- NOTE | 2025-04-10 11:59 | PD.RESPRO ---
Documentation for date of: 04/10/25 Subjective Subjective Interval history: Patient seen and assessed in hospital bed denies having any concerning symptoms at this time; moreover, will continue monitor patient's hemoglobin hematocrit closely. Patient continues to be on IV octreotide and will complete 5-day course as recommended by gastroenterology for esophageal varices. Patient's MRI abdomen completed shows 2 lesions measuring 10 and 29 mm respectively along with mild ascites. Will withhold and advised patient to start on spironolactone and diuretic upon outpatient follow-up and gastroenterology consultation. At this time patient's vitals are stable and expectations for discharge will occur in the next 24 hours. Exam Vital Signs Temp Pulse Resp BP Pulse Ox O2 Del Method O2 Flow Rate 97.5 F 65 16 131/71 H 99 Room Air 3 04/10/25 08:00 04/10/25 09:05 04/10/25 08:00 04/10/25 09:05 04/10/25 08:00 04/10/25 08:00 04/09/25 04:00 Narrative Exam General: Patient alert, oriented, in no acute distress. HEENT: Normocephalic, atraumatic. PERRLA, EOMI, no scleral icterus or conjunctival injection. Oropharynx clear, mucous membranes moist. Neck: Supple, trachea midline, no thyromegaly or lymphadenopathy. Cardiac: Regular rate and rhythm, normal S1/S2, no murmurs, rubs, or gallops. Peripheral pulses 2+ and symmetric. No peripheral edema. Lungs: Normal effort, clear to auscultation bilaterally, no wheezes, rales, or rhonchi. Abdomen: Soft, non-tender, non-distended. Normoactive bowel sounds. No hepatosplenomegaly, no rebound/guarding. Extremities: Warm, well-perfused, no clubbing, cyanosis, or edema. Full range of motion, no joint tenderness. Skin: Warm, dry, intact. No rashes, lesions, or ecchymoses. Neuro: Alert and oriented ?3. Speech fluent. Cranial nerves II?XII grossly intact. Psych: Appropriate mood and affect. Cooperative, good eye contact. Objective Labs 04/10/25 05:20 04/10/25 05:20 Labs: Laboratory Results - last 24 hr 04/10/25 05:20 WBC 3.9 RBC 3.04 L Hgb 8.3 L Hct 26.0 L MCV 86 MCH 27.3 MCHC 31.9 RDW Std Deviation 63.2 H Plt Count 111 L D Neut % (Auto) 62 Lymph % (Auto) 20 [place] % (Auto) 11 Eos % (Auto) 7 Baso % (Auto) 0 Neut # (Auto) 2.4 Lymph # (Auto) 0.8 L [place] # (Auto) 0.4 Eos # (Auto) 0.3 Baso # (Auto) 0.0 Immature Gran # (Auto) 0.02 H Absolute Nucleated RBC 0.02 H Immature Gran % 1 H Nucleated RBC % 1 H Sodium 137 Potassium 3.8 Chloride 105 Carbon Dioxide 23.0 Anion Gap 9 BUN 7 L Creatinine 0.6 Estim Creat Clear Calc 145.3 eGFR > 60 BUN/Creatinine Ratio 12 Glucose 95 Calculated Osmolality 271 L Calcium 8.5 Corrected Calcium 9.1 Phosphorus 2.8 Magnesium 1.8 Total Bilirubin 2.1 H AST 61 H ALT 18 Alkaline Phosphatase 106 Total Protein 6.3 Albumin 3.2 L Globulin 3.1 Albumin/Globulin Ratio 1.0 L Quality Measures Quality Measures VTE prophylaxis Assessment & Plan Assessment Current Active Medications: Generic Name Dose Route Start Last Admin Trade Name Freq PRN Reason Stop Dose Admin Acetaminophen 650 mg 04/07/25 21:01 04/08/25 05:05 Acetaminophen 325 Mg Tablet PO 05/07/25 21:00 650 mg Q6HR PRN Administration Fever >100.4 and pain Carvedilol 3.125 mg 04/09/25 17:30 04/10/25 09:05 Carvedilol 3.125 Mg Tablet PO 05/09/25 17:29 3.125 mg BIDWM CARLENE Administration Diazepam 2.5 mg 04/08/25 00:47 Diazepam Inj 5 Mg/Ml Vial 2 Ml IVP X1 PRN Breakthrough Agitation Diazepam 5 mg 04/08/25 00:47 Diazepam Inj 5 Mg/Ml Vial 2 Ml IVP 04/13/25 00:46 Q2HR PRN CIWA SCORE 14-19 Folic Acid 1 mg 04/07/25 22:00 04/10/25 11:33 Folic Acid Inj 1 Mg/0.2 Ml IVP 05/07/25 21:59 1 mg QDAY CARLENE Administration Octreotide Acetate 1,000 mcg/ 102 mls @ 5.1 mls/hr 04/08/25 12:15 04/10/25 02:47 Sodium Chloride IV 05/08/25 12:14 50 mcg/hr .Q20H CARLENE 5.1 mls/hr Protocol Administration 50 MCG/HR Magnesium Sulfate 4 gm in 50 mls @ 12.5 mls/hr 04/10/25 08:38 04/10/25 09:05 Magnesium Sulfate Ivpb IV 04/10/25 12:37 12.5 mls/hr X1 ONE Administration Nitrofurantoin Macrocrystals 100 mg 04/10/25 10:30 04/10/25 11:33 Nitrofurantoin Macro 100 Mg Capsule PO 04/17/25 10:29 100 mg BID CARLENE Administration Thiamine HCl 100 mg 04/08/25 09:00 04/10/25 09:06 Thiamine Inj 100 Mg/Ml Vial 2 Ml IVP 05/08/25 08:59 100 mg QDAY CARLENE Administration Plan 54 year old male with PMHx of chronic alcohol use, liver cirrhosis, esophageal varices s/p banding (12/2023, 03/2025) admitted for evaluation and management of upper GI bleed. #Hematemesis iso decompensated cirrhotic liver disease 2/2 to alcohol #Chronic alcohol use EGD from 04/08 showed Grade II varices found in the lower 3rd of esophagus with 3 bands sucessfully placed; diffuse moderate inflammation characterized by erythema found in entire examined stomach; duodenum was normal. Given findings of nonbleeding varices, prophylactic treatment with low dose Coreg will be started, first line treatment. Can discontinue Ceftriaxone for SBP prophylaxis. Will continue Ocreotide for 2 more days, first dose on 04/07. CT abd/pelvis (04/07): Cirrhosis, prominent splenomegaly, esophageal varices, perigastric varices, gastritis, portal hypertension, hepatic colopathy, hepatic enteropathy T. bili 2.2, AST 53, ALP 114 Child Escobar Score 8 - Class B: 1 year survival rate of 80% MELD Score 14 - 6% estimated 3 month mortality MADDREY Score 11- No indication for steroid treatment for alcoholic hepatitis Plan - Continue Octreotide infusion for 1 more day - Monitor nuetrophil count and WBC for SBP - Replete electrolytes Phosphorus and Magnesium as needed - Watch for alcohol withdrawal, follow [facility] protocol - Continue Folic Acid 1mg IVP QDAY - Continue Vitamin B12 100mg IVP QDAY # Liver lesion Differentials include: Hepatocellular carcinoma, metastatic cancer likely etiology colonic, focal logical dysplasia, hemangioma CT abd/pelvis found instance of 7 mm lesion in the right upper lobe of the liver along with bladder and rectal wall thickening. AFP was found to be negative. Would consider inpatient vs outpatient MRI to rule out hepatocellular carcinoma. MRI abdomen shows cirrhosis, significant bilateral splenomegaly, mild ascites, nonenhancing 10 mm right upper right lobe liver lesion and abnormal enhancement in the posterior right lobe of the liver measuring 29 mm Plan - Radiology recommends repeat MR abdomen pre and postcontrast for abnormal enhancement as noted above. #Microcytic anemia, chronic #Thrombocytopenia #Coagulopathy Hemoglobin 8.9, hematocrit 28.1 and patient had 3-4 episodes of hematemesis and melena. PT 14.5 and INR 1.4, Plt 86. Coagulopathy given impaired liver function leading to reduced production of clotting and anticoagulant factors. Patient is blood type O positive and negative on antibody screen. Plan -continue to monitor CBC -Transfuse if Hg<7 #Positive COVID-19 Patient has recent sick contact, his . Denies cough, fever, chills, body aches. On admission patient was febrile with temperature 101.6, WBC normal. Given Tylenol x1, fever resolved. CXR negative for pneumonia. Plan - Continue to monitor - Droplet and airborne precaution. Hospital Maintenance: Dispo: Medtele DVT ppx: SCDs GI ppx: Protonix Diet: NPO IV Lines: PIV Code Status: Full Code Patient seen and assessed with attending Dr. Mikala Alegria DO PGY-2 Internal Medicine - [facility] Attending Provider Attestation/Addendum I have discussed and was present for the essential components of the history, physical examination, diagnosis, and treatment plan with the resident. I agree with the patient's care as documented by the resident and amended herein by me. Petr Bach DO. Although this document has been carefully reviewed, there may still be some phonetic and other typographical errors. These errors are purely grammatical due to imperfections in the software program and should not be construed in any way to compromise the substance of the patient's medical care during this visit. Patient seen and evaluated this AM. No acute events overnight, will continue octreotide drip for 1 more day, will discharge tomorrow 09/11.
--- NOTE | 2025-04-10 17:46 | PD.IMPROG ---
Documentation for date of: 04/10/25 Subjective Subjective Interval history: Hemoglobin hematocrit 8.3 and 26.0 Exam Vital Signs Temp Pulse Resp BP Pulse Ox O2 Del Method O2 Flow Rate 98.6 F 64 17 134/72 H 97 Room Air 3 04/10/25 16:00 04/10/25 17:14 04/10/25 16:00 04/10/25 17:14 04/10/25 16:00 04/10/25 16:00 04/09/25 04:00 Objective Labs 04/10/25 05:20 04/10/25 05:20 Labs: Laboratory Results - last 24 hr 04/10/25 05:20 WBC 3.9 RBC 3.04 L Hgb 8.3 L Hct 26.0 L MCV 86 MCH 27.3 MCHC 31.9 RDW Std Deviation 63.2 H Plt Count 111 L D Neut % (Auto) 62 Lymph % (Auto) 20 [place] % (Auto) 11 Eos % (Auto) 7 Baso % (Auto) 0 Neut # (Auto) 2.4 Lymph # (Auto) 0.8 L [place] # (Auto) 0.4 Eos # (Auto) 0.3 Baso # (Auto) 0.0 Immature Gran # (Auto) 0.02 H Absolute Nucleated RBC 0.02 H Immature Gran % 1 H Nucleated RBC % 1 H Sodium 137 Potassium 3.8 Chloride 105 Carbon Dioxide 23.0 Anion Gap 9 BUN 7 L Creatinine 0.6 Estim Creat Clear Calc 145.3 eGFR > 60 BUN/Creatinine Ratio 12 Glucose 95 Calculated Osmolality 271 L Calcium 8.5 Corrected Calcium 9.1 Phosphorus 2.8 Magnesium 1.8 Total Bilirubin 2.1 H AST 61 H ALT 18 Alkaline Phosphatase 106 Total Protein 6.3 Albumin 3.2 L Globulin 3.1 Albumin/Globulin Ratio 1.0 L Impressions Impression: Status post band ligation of the esophageal varices hypertensive portal gastropathy No need for any more octreotide okay to discharge patient home Assessment & Plan A&P Narrative # Hematemesis in the setting of cirrhotic liver disease secondary to alcohol Plan Admit the patient case discussed with the physician delinquent tax collection assistant Octreotide infusion at 50 mcg/h after loading dose of 50 mcg n.p.o. Consent obtained for fiberoptic esophagogastroduodenoscopy with possible biopsy possible therapeutic intervention under intravenous moderate sedation Serial CBC transfuse if the hemoglobin drops below 7 g Other medical problems include Cirrhotic liver disease with advanced portal hypertension leading to ascites splenomegaly and advanced portal systemic collaterals 17 mm lesion in the right lobe of the liver recommend AFP as well as pre and post contrast MRI of the liver 4 phase Watch for alcohol withdrawal Advised complete abstinence from alcohol Thank you very much for the opportunity to participate in the care of this patient Time Spent With Patient Time: Total time spent is greater than 50% in coordination of care (as documented) at patient's floor/unit and/or counseling patient:
[2025-04-11] VITALS: BP 124/63; PULSE 56; PULSE 88; RESP 12; TEMP 36.3; O2SAT 98
[2025-04-11] MEDS: OCTREOTIDE ACET INJ 1,000 MCG in SODIUM CHLORIDE 0.9% 100 ML 5.1 MCG IV (00:16)
[2025-04-11 04:00] VITALS: BP 128/54; PULSE 72; PULSE 85; RESP 15; TEMP 36.1; O2SAT 98
[2025-04-11 06:22] LABS: Basophils # (Auto) 0.0 Thou/mm3 (0.0-0.2); Basophils % (Auto) 0 % (0-2.5); Eosinophils # (Auto) 0.3 Thou/mm3 (0.0-0.5); Eosinophils % (Auto) 8 % (0-10); Hematocrit 25.6 % (41.0-53.0); Hemoglobin 8.1 g/dL (13.5-16.0); Immature Granulocytes Auto 0.02 Thou/mm3 (0.00-0.00); Lymphocytes # (Auto) 0.7 Thou/mm3 (1.0-4.8); Lymphocytes % (Auto) 23 % (10-50); Mean Corpuscular HGB Conc 31.6 g/dl (31.0-37.0); Mean Corpuscular Hemoglobin 26.8 pg (25.0-35.0); Mean Corpuscular Volume 85 fL (80-100); Monocytes # (Auto) 0.4 Thou/mm3 (0.0-0.8); Monocytes % (Auto) 11 % (0-12); Neutrophils # (Auto) 1.8 Thou/mm3 (1.8-7.7); Neutrophils % (Auto) 57 % (37-80); Nucleated Red Blood Cell # 0.00 Thou/mm3 (0.00-0.00); Nucleated Red Blood Cell % 0 /100 WBC (0); Platelet Count 115 Thou/mm3 (140-440); RDW Standard Deviation 62.6 fL (35.1-43.9); Red Blood Count 3.02 Miln/mm3 (4.50-5.90); White Blood Count 3.2 Thou/mm3 (3.8-10.6)
[2025-04-11 06:45] LABS: Alanine Aminotransferase 25 U/L (10-49); Albumin, Serum 3.1 gm/dL (3.5-5.0); Albumin/Globulin Ratio 1.0 (1.2-2.2); Alkaline Phosphatase 114 U/L (46-116); Anion Gap 6 (7-16); Aspartate Amino Transferase 73 U/L (0-34); BUN/Creatinine Ratio 12 Ratio (12-20); Bilirubin,Total 2.0 mg/dL (0.3-1.2); Blood Urea Nitrogen 7 mg/dL (9-23); Calcium 8.4 mg/dL (8.3-10.6); Calcium (Corrected) 9.1 mg/dL (8.5-10.1); Carbon Dioxide 22.8 mMol/L (20.0-31.0); Chloride 107 mMol/L (98-107); Creatinine (Component) 0.6 mg/dL (0.6-1.3); Estimated Creatinine Clearance 145.3 mL/min (>60); Globulin 3.1 gm/dL (2.3-3.5); Glucose 94 mg/dL (74-106); Osmolality,Calculated 269 (275-295); Potassium 3.7 mMol/L (3.4-5.1); Sodium 136 mMol/L (136-145); Total Protein 6.2 gm/dL (5.7-8.2); eGFR > 60 See Note
[2025-04-11 08:00] VITALS: BP 126/70; PULSE 65; RESP 15; TEMP 36.4; O2SAT 98
[2025-04-11 08:57] VITALS: BP 126/70; PULSE 65
[2025-04-11] MEDS: NITROFURANTOIN MACRO 100 MG CAPSULE PO (08:57)
[2025-04-11] MEDS: THIAMINE INJ 100 MG/ML VIAL 2 ML IVP (08:58)
[2025-04-11] MEDS: FOLIC ACID INJ 1 MG/0.2 ML IVP (08:58)
[2025-04-11 12:00] VITALS: BP 120/71; PULSE 60; PULSE 70; RESP 16; TEMP 36.6; O2SAT 98
--- NOTE | 2025-04-11 13:23 | ESDS_ITS ---
Planned Discharge Date 04/11/25 DS: Providers Provider Date of admission: 04/07/25 20:26 Primary care physician: Physician No Primary/Family Admitting Provider: Luis Engel MD Attending Provider on Admission: Miguel Angel Bach DO Consults: 04/07/25 16:04 Consult to Gastroenterology Stat Comment: UGIB Consulting Provider: Demarcus Wagner Attending Provider on DC: Ziyad Alegria MD Discharging Provider: Ziyad Alegria MD DS: Diagnosis Problem List Completed Was Problem List Reviewed/Reconciled?: Yes Hospital Course Hospital Course Hospital course: 54-year-old male with past medical history of chronic alcohol use, liver cirrhosis secondary to alcohol use disorder, esophageal varices presented to the ED on 04/07 with 3-4 episodes of hematemesis. In the ED, patient was mildly hypertensive and tachycardic and febrile (101.6 ?F) but satting 95 on room air. Significant lab findings included hemoglobin of 9.5, hematocrit 29.3, platelet of 82, T. bili of 2.5. Patient was COVID-positive with bedside evaluation. Imaging findings included CT abdomen pelvis which confirms cirrhosis, prominent splenomegaly, esophageal varices, portal hypertension and there was also noted thickening of the urinary bladder wall and rectal wall along with liver lesions. Chest x-ray showed mild bibasilar pattern similar to bronchitis. Patient was admitted for upper GI bleed likely secondary to esophageal varices from decompensated liver cirrhosis. Gastroenterology was consulted on 04/08 completed endoscopy with grade 2 esophageal varices banded and octreotide drip to be completed for 5 days. Patient tolerated the procedure well and progressively improvement in symptomology. MRI abdomen was ordered in regards to the liver lesions noted on CT and there are 2 liver lesions noted measuring 10 mm and 29 mm respectively. Patient is in full understanding of his diagnosis and importance of following up outpatient with gastroenterology. Patient will be discharged with the following strict instructions. Please take Coreg 3.125 mg tablet twice a day with meals to prevent upper GI bleed from esophageal varices Please complete Macrobid 100 mg tablet twice a day for 6 more days for UTI Follow-up with your PCP within 1 week or follow-up with [facility] [address] [place], [place] [id number] Ask your PCP to refer you to a Gastroenterolgist - You have liver lesions noted on MR Abdomen measuring 10mm and 29mm that need close follow-up Stop drinking alcohol and ask your PCP to refer you to a program If your symptoms worsen or if you develop new chest pain shortness of breath, dizziness or severe abdominal pain - please come back to the ED immediately. Hospital Diagnosis: #Grade II Esophageal Varices #Gastritis #Acute blood loss anemia #Decompensated cirrhotic liver disease secondary to alcohol use disorder #Chronic alcohol use disorder #Liver lesions #Microcytic anemia, chronic #Thrombocytopenia #Coagulopathy #Positive COVID-19 Ziyad Alegria DO PGY-2 Internal Medicine - [facility] Status at Discharge Overall status at discharge: patient is progressing back to baseline Time Spent with Patient Time attestation: Total time spent providing and/or coordinating discharge services: 45 minutes Time spent: Greater than 30 minutes Exam Vital Signs Temp Pulse Resp BP Pulse Ox O2 Del Method O2 Flow Rate 97.9 F 60 16 120/71 98 Room Air 3 04/11/25 12:04/11/25 12:04/11/25 12:04/11/25 12:04/11/25 12:04/11/25 12:04/09/25 04:00 Narrative Exam General: Patient alert, oriented, in no acute distress. HEENT: Normocephalic, atraumatic. PERRLA, EOMI, no scleral icterus or conjunctival injection. Oropharynx clear, mucous membranes moist. Neck: Supple, trachea midline, no thyromegaly or lymphadenopathy. Cardiac: Regular rate and rhythm, normal S1/S2, no murmurs, rubs, or gallops. Peripheral pulses 2+ and symmetric. No peripheral edema. Lungs: Normal effort, clear to auscultation bilaterally, no wheezes, rales, or rhonchi. Abdomen: Soft, non-tender, non-distended. Normoactive bowel sounds. No hepatosplenomegaly, no rebound/guarding. Extremities: Warm, well-perfused, no clubbing, cyanosis, or edema. Full range of motion, no joint tenderness. Skin: Warm, dry, intact. No rashes, lesions, or ecchymoses. Neuro: Alert and oriented ?3. Speech fluent. Cranial nerves II?XII grossly intact. Psych: Appropriate mood and affect. Cooperative, good eye contact. Discharge Plan Plan Patient Disposition: HOME (Self Care) Patient condition on transfer: Stable Care Plan Goals: Please take Coreg 3.125 mg tablet twice a day with meals to prevent upper GI bleed from esophageal varices Please complete Macrobid 100 mg tablet twice a day for 6 more days for UTI Follow-up with your PCP within 1 week or follow-up with [facility] [address] [place] [address] Ask your PCP to refer you to a Gastroenterolgist - You have liver lesions noted on MR Abdomen measuring 10mm and 29mm that need close follow-up Stop drinking alcohol and ask your PCP to refer you to a program If your symptoms worsen or if you develop new chest pain shortness of breath, dizziness or severe abdominal pain - please come back to the ED immediately. Prescriptions/Referrals Prescriptions/Med Rec: New carvedilol 3.125 mg Tablet 3.125 mg PO BIDWM 30 Days Qty: 60 0RF nitrofurantoin monohyd/m-cryst 100 mg Capsule 100 mg PO BID 6 Days Qty: 12 0RF Referrals: No Primary/Family,Physician [Primary Care Provider] Patient/Caregiver Discharge Instructions Education Materials: Treating Cirrhosis, Understanding Cirrhosis, Discharge Instructions for ... Print Language: American Stand Alone Forms: Nikki Award Info., Patient Portal Info Letter Discharge Order Discharge Orders: Discharge (Routine); Ordered 04/11/25 Ordered By: Ziyad Alegria Quality Discharge Quality Measures VTE prophylaxis Attestestation Attestation I have discussed and was present for the essential components of the discharge history, physical examination, diagnosis, and discharge treatment plan with the resident. I agree with the patient's discharge care as documented by the resident and amended herein by me. Petr Bach, . The patient understood all discharge instructions, all questions were answered satisfactorily. The patient was instructed to return to the Emergency Department is symptoms worsened or persisted. Patient was instructed to remain abstinent from alcohol, he did complete a total 5-day course of octreotide per gastroenterology recommendations. Patient also was instructed to follow-up with repeat MRI in 3 months for liver lesions found, see specific instructions above. The patient was stable, afebrile, tolerating p.o. intake and ambulatory at time of discharge home Although this document has been carefully reviewed, there may still be some phonetic and other typographical errors. These errors are purely grammatical due to imperfections in the software program and should not be construed in any way to compromise the substance of the patient's medical care during this visit.
== END 2025-04-11 13:22 | disposition home or self-care (01) | DRG 280 ==
LOC: SERX 14:12 → SERHOLD 20:39 → S3SX 21:45
PROVIDERS: Nurse Practitioner Family; Nurse Practitioner Primary Care; Specialist; Admitting Provider Student in an Organized Health Care Education/Training Program; Emergency Provider Emergency Medicine; Visit Provider Student in an Organized Health Care Education/Training Program
PROC: (CPT 43239; principal; 2025-04-08 19:30)
DX: K70.31 Alcoholic cirrhosis of liver with ascites (principal); I85.11 Secondary esophageal varices with bleeding; U07.1 COVID-19; R16.1 Splenomegaly, not elsewhere classified; K76.6 Portal hypertension; K29.70 Gastritis, unspecified, without bleeding; J40 Bronchitis, not specified as acute or chronic; D50.9 Iron deficiency anemia, unspecified; D69.6 Thrombocytopenia, unspecified; D68.9 Coagulation defect, unspecified; I44.7 Left bundle-branch block, unspecified; F10.10 Alcohol abuse, uncomplicated; N39.0 Urinary tract infection, site not specified; Z79.899 Other long term (current) drug therapy; D62 Acute posthemorrhagic anemia; K31.89 Other diseases of stomach and duodenum
CPT/HCPCS: 36415; 71045; 74177; 74183; 80048; 80053; 80076; 80307; 80320; 81001; 82105; 82150; 83735; 84100; 84484; 85025; 85610; 85730; 86850; 86900; 86901; 87040; 87077; 87086; 87186; 87811; 93225; 96365; 96366; 96375; 99284; A4217; A4649; A9577; J0696; J1200; J2250; J2354; J2470; J3010; J3411; J3475; J3490; J7050; J7999; Q9967; A9270; G0480

== ENCOUNTER 2025-05-03 13:37 | Inpatient (IN) | payer MEDICAID, SELFPAY ==
[2025-05-03] VITALS (15 sets, daily range): BP systolic 118–150; BP diastolic 57–69; PULSE 76–109; RESP 14–100; TEMP 36.6–37.3; O2SAT 99–100
--- NOTE | 2025-05-03 14:37 | EDRME_ITS ---
Rapid Medical Screening Exam [facility] Arrival date/time: 05/03/25 13:37 54-year-old male with a history of liver cirrhosis presents to the emergency room with a chief complaint of vomiting blood and black tarry stools x 3 days I have greeted and performed a focused initial assessment of this patient. A comprehensive ED assessment and evaluation of the patient, analysis of all test results, and completion of the medical decision making process will be conducted by additional ED providers. Chief Complaint: Flu Like Symptoms Time Seen by Provider: 05/03/25 14:19 Vital signs: Vital Signs Temperature 99.1 F 05/03/25 14:28 Pulse Rate 109 H 05/03/25 14:28 Respiratory Rate 18 05/03/25 14:28 Blood Pressure 119/67 05/03/25 14:28 Pulse Oximetry (%) 100 05/03/25 14:28 Oxygen Delivery Method Room Air 05/03/25 14:28 Vital signs reviewed by provider: Yes
[2025-05-03 15:36] LABS: Collection Type, Urine Clean Catch
[2025-05-03 15:39] LABS: Basophils # (Auto) 0.1 Thou/mm3 (0.0-0.2); Basophils % (Auto) 1 % (0-2.5); Eosinophils # (Auto) 0.1 Thou/mm3 (0.0-0.5); Eosinophils % (Auto) 1 % (0-10); Immature Granulocytes Auto 0.04 Thou/mm3 (0.00-0.00); Lymphocytes # (Auto) 1.3 Thou/mm3 (1.0-4.8); Lymphocytes % (Auto) 12 % (10-50); Mean Corpuscular HGB Conc 31.2 g/dl (31.0-37.0); Mean Corpuscular Hemoglobin 24.8 pg (25.0-35.0); Mean Corpuscular Volume 79 fL (80-100); Monocytes # (Auto) 0.9 Thou/mm3 (0.0-0.8); Monocytes % (Auto) 9 % (0-12); Neutrophils # (Auto) 8.0 Thou/mm3 (1.8-7.7); Neutrophils % (Auto) 77 % (37-80); Nucleated Red Blood Cell # 0.00 Thou/mm3 (0.00-0.00); Nucleated Red Blood Cell % 0 /100 WBC (0); Platelet Count 153 Thou/mm3 (140-440); RDW Standard Deviation 54.6 fL (35.1-43.9); Red Blood Count 2.38 Miln/mm3 (4.50-5.90); White Blood Count 10.3 Thou/mm3 (3.8-10.6)
[2025-05-03 15:45] LABS: Bacteria,Urine 4+; Bilirubin,Urine Negative (Negative); Blood,Urine Trace (Negative); Clarity,Urine Turbid (Clear/Hazy); Color,Urine Yellow (Lt Yel-Yel); Glucose, Urine Negative (Negative); Hyaline Casts,Urine 1 /hpf (0-1); Ketones,Urine Trace (Negative); Leukocyte Esterase,Urine Positive (Negative); Nitrite,Urine Negative (Negative); PH,Urine 6.0 (5.0-7.0); Protein,Urine Trace (Neg - Trace); RBC,Urine 6 /hpf (0-3); Specific Gravity,Urine 1.019 (1.001-1.035); Squamous Epithelial Cell,Urine 2 /hpf (0-5); Urobilinogen,Urine Negative mg/dL (0.0-1.0); WBC,Urine 471 /hpf (0-5)
[2025-05-03 15:53] LABS: Hematocrit 18.9 % (41.0-53.0); Hemoglobin 5.9 g/dL (13.5-16.0)
[2025-05-03 15:57] LABS: Alanine Aminotransferase 24 U/L (10-49); Albumin, Serum 2.8 gm/dL (3.5-5.0); Albumin/Globulin Ratio 1.0 (1.2-2.2); Alkaline Phosphatase 132 U/L (46-116); Anion Gap 10 (7-16); Aspartate Amino Transferase 70 U/L (0-34); BUN/Creatinine Ratio 33 Ratio (12-20); Bilirubin,Total 1.6 mg/dL (0.3-1.2); Blood Urea Nitrogen 26 mg/dL (9-23); Calcium 7.8 mg/dL (8.3-10.6); Calcium (Corrected) 8.8 mg/dL (8.5-10.1); Carbon Dioxide 25.0 mMol/L (20.0-31.0); Chloride 105 mMol/L (98-107); Creatinine (Component) 0.8 mg/dL (0.6-1.3); Globulin 2.7 gm/dL (2.3-3.5); Glucose 121 mg/dL (74-106); Lipase 29 U/L (12-53); Osmolality,Calculated 285 (275-295); Potassium 4.3 mMol/L (3.4-5.1); Sodium 140 mMol/L (136-145); Total Protein 5.5 gm/dL (5.7-8.2); eGFR > 60 See Note
[2025-05-03 16:04] LABS: INR 1.5 (0.9-1.3); Partial Thromboplastin Time 31.9 Seconds (22.0-36.0); Prothrombin Time 15.0 Seconds (9.0-12.2)
[2025-05-03 18:03] LABS: Path Review Blood Smear Sent to Pathologist
--- NOTE | 2025-05-03 19:52 | PD.EDGIBLD ---
ED GI Bleed RME/HPI General Chief complaint: Flu Like Symptoms Stated complaint: SOB, DIZZINESS, HEADACHES, VOMIT BLOOD Time Seen by Provider: 05/03/25 14:19 Arrival date/time: 05/03/25 13:37 Mode of arrival: ambulatory Limitations: no limitations RME / HPI RME / HPI Narrative: 05/03/25 13:37 54-year-old male with a history of liver cirrhosis presents to the emergency room with a chief complaint of vomiting blood and black tarry stools x 3 days I have greeted and performed a focused initial assessment of this patient. A comprehensive ED assessment and evaluation of the patient, analysis of all test results, and completion of the medical decision making process will be conducted by additional ED providers. Related Data Home Medications ?Medication ?Instructions ?Recorded ?Confirmed pantoprazole 40 mg tablet,delayed 40 mg PO QDAY 05/04/25 05/04/25 release Previous Rx's ?Medication ?Instructions ?Recorded carvedilol 3.125 mg tablet 3.125 mg PO BIDWM 1 month #60 tabs 04/10/25 Allergies Allergy/AdvReac Type Severity Reaction Status Date / Time No Known Allergies Allergy Verified 05/03/25 13:41 ED Exam General Limitations: Present no limitations General appearance: Present alert Head Head exam: Present atraumatic and other (Appears pale) Eye Eye exam: Present normal appearance and PERRL ENT ENT exam: Present normal exam and normal oropharynx Neck Neck exam: Present normal inspection and full ROM Chest Chest inspection: Present normal inspection and symmetric chest wall rise Respiratory Respiratory exam: Present normal lung sounds bilaterally; Absent respiratory distress Cardiovascular Cardiovascular exam: Present normal rhythm Abdominal Exam Abdominal exam: Present soft; Absent distention, tenderness or guarding Extremities Exam Extremities exam: Present normal inspection and full ROM Neurological Exam Neurological exam: Present alert, oriented X3 and other (No focal neurodeficits) Psychiatric Psychiatric exam: Present normal affect Skin Skin exam: Present warm and dry Course Quality Measures none Orders Category Date Time Status Transfuse,blood/blood products NOW Care 05/03/25 19:42 Active Consult to Gastroenterology Stat Cons 05/03/25 20:48 Ordered CBC Stat Lab 05/03/25 15:09 Completed CMP [Comprehensive Metabolic Panel] Stat Lab 05/03/25 15:09 Completed Lipase Stat Lab 05/03/25 15:09 Completed PT [Prothrombin Time with INR] Stat Lab 05/03/25 15:09 Completed PTT [Partial Thromboplastin Time] Stat Lab 05/03/25 15:09 Completed Path Review Blood Smear Stat Lab 05/03/25 15:09 Completed Red Blood Cells Stat Lab 05/03/25 19:53 Completed Type and Screen Stat Lab 05/03/25 15:09 Completed Type and Screen Stat Lab 05/03/25 19:53 Completed UA [Urinalysis] Stat Lab 05/03/25 15:22 Completed Urine Culture Stat Lab 05/03/25 15:22 Completed Octreotide Acet Inj [SandoSTATIN Inj] Med 05/03/25 19:44 Discontinued 50 mcg IV X1 ONE Ondansetron Inj [Zofran Inj] Med 05/03/25 20:46 Discontinued 4 mg IVP X1 ONE Ondansetron Odt [Zofran Odt] Med 05/03/25 19:46 Discontinued 4 mg PO X1 ONE Pantoprazole Inj [Protonix Inj] Med 05/03/25 19:45 Discontinued 80 mg IVP X1 ONE Pantoprazole/Ns 80Mg IV Premix [Protonix/NS 80mg IV Med 05/03/25 19:46 Discontinued Premix] 80 mg in 100 ml IV X1 Pantoprazole/Ns 80Mg IV Premix [Protonix/NS 80mg IV Med 05/03/25 20:45 Discontinued Premix] 80 mg in 100 ml IV X1 Sodium Chloride 0.9% [Ns] 100 ml Med 05/03/25 20:00 Discontinued Octreotide Acet Inj [SandoSTATIN Inj] 1,000 mcg IV 50 mcg/hr cefTRIAXone/D5w 1gm IV premix [Rocephin/D5w 1gm IV Med 05/03/25 19:56 Discontinued premix] 1 gm in 50 ml IV STAT Vital Signs Vital signs: Vital Signs Temperature 99.1 F 05/03/25 14:28 Pulse Rate 109 H 05/03/25 14:28 Respiratory Rate 18 05/03/25 14:28 Blood Pressure 119/67 05/03/25 14:28 Pulse Oximetry (%) 100 05/03/25 14:28 Oxygen Delivery Method Room Air 05/03/25 14:28 GI Bleed MDM Narrative MDM Narrative:: Patient is a 54-year-old male with medical history notable for cirrhosis, prior alcohol use disorder, prior GI bleed senting with concerns for hematemesis, melena, hematochezia. Vital signs and exam as listed. Concern for upper and lower GI bleed. Concern for symptomatic anemia. Prior provider evaluated patient. Ordered labs. Labs with evidence of hemoglobin 5.9, previously 8.1 a few months ago. Platelets 153, no leukocytosis, no left shift. No significant acute electrolyte abnormality, patient has an elevated BUN of 33 hypocalcemia 7.8 will replete. Patient has a T. bili of 1.6, downtrending. Urinalysis with 471 white blood cells 6 red blood cells positive leuk esterase negative nitrates for bacteria. Patient blood type is O+. Ordered 2 units of blood. Also ordered Protonix bolus and drip, octreotide bolus and drip. Also provide patient with antibiotics. Discussed case with on-call anthropology department chair, will consult patient. Discussed case with on-call hospitalist, kindly excepted patient for admission Patient data External records reviewed:: [facility] previous records Clinical information provided by:: patient Social determinants that could affect healthcare access:: alcohol use Patient has the following chronic illnesses:: See MDM How is presenting disease/condition affected by chronic disease/condition?: exacerbated by Evaluation data The following diagnostics were reviewed and interpreted by me:: lab results and radiology exam(s) Lab and/or radiology exams considered but not ordered:: None Interpretation Summary: None Medications / Prescriptions Medications or Prescriptions considered but not ordered:: None Medication administrations:: Medication Administration History Acetaminophen (Acetaminophen 325 Mg Tablet) 325 mg PO Q6H PRN PRN Reason: Fever >100.4 Stop: 06/02/25 21:31 Acetaminophen (Acetaminophen 325 Mg Tablet) 325 mg PO Q6H PRN PRN Reason: PAIN SCALE 1-3 (mild Stop: 06/02/25 21:31 Carvedilol (Carvedilol 3.125 Mg Tablet) 3.125 mg PO BIDWM [facility] Stop: 06/03/25 17:29 Last Admin: 05/05/25 16:53 Dose: 3.125 mg Documented By: Admin: 05/05/25 08:57 Dose: 3.125 mg Documented By: Admin: 05/04/25 16:43 Dose: 3.125 mg Documented By: JENY Folic Acid (Folic Acid Inj 1 Mg/0.2 Ml) 1 mg IVP QDAY [facility] Stop: 06/03/25 14:29 Last Admin: 05/05/25 08:55 Dose: 1 mg Documented By: Admin: 05/04/25 16:37 Dose: 1 mg Documented By: JENY Ceftriaxone Sodium/Dextrose (Rocephin/D5w 1gm Iv Premix) 1 gm in 50 mls @ 100 mls/hr IV 2100 CARLENE Stop: 05/11/25 20:59 Last Admin: 05/05/25 20:33 Dose: 100 mls/hr Documented By: Infusion: 05/04/25 20:32 Dose: Infused Documented By: Admin: 05/04/25 20:02 Dose: 100 mls/hr Documented By: AM Octreotide Acetate 1,000 mcg/ (Sodium Chloride) 102 mls @ 5.1 mls/hr IV .Q20H CARLENE; Protocol Stop: 05/08/25 19:59 Last Admin: 05/05/25 12:52 Dose: 50 mcg/hr, 5.1 mls/hr Documented By: Infusion: 05/05/25 12:50 Dose: Infused Documented By: Admin: 05/04/25 16:50 Dose: 50 mcg/hr, 5.1 mls/hr Documented By: JENY Ondansetron HCl (Ondansetron Inj 2 Mg/Ml Inj 2 Ml) 4 mg IVP Q6H PRN; Protocol PRN Reason: NAUSEA OR VOMITING Stop: 06/02/25 21:31 Pantoprazole Sodium (Pantoprazole Inj 40 Mg Vial) 40 mg IVP BID [facility] Stop: 06/03/25 08:59 Last Admin: 05/05/25 20:33 Dose: 40 mg Documented By: Admin: 05/05/25 08:57 Dose: 40 mg Documented By: Admin: 05/04/25 20:02 Dose: 40 mg Documented By: Admin: 05/04/25 08:50 Dose: 40 mg Documented By: LASHA Thiamine HCl (Thiamine Inj 100 Mg/Ml Vial 2 Ml) 100 mg IV QDAY CARLENE Stop: 06/03/25 15:29 Last Admin: 05/05/25 08:55 Dose: 100 mg Documented By: Admin: 05/04/25 16:37 Dose: 100 mg Documented By: JENY Discontinued Medications Acetaminophen (Acetaminophen 325 Mg Tablet) 650 mg PO Q6H PRN PRN Reason: Fever >100.4 Stop: 06/02/25 21:31 Acetaminophen (Acetaminophen 325 Mg Tablet) 650 mg PO Q6H PRN PRN Reason: PAIN SCALE 1-3 (mild Stop: 06/02/25 21:31 Acetaminophen (Acetaminophen 325 Mg Tablet) 650 mg PO Q6H PRN PRN Reason: Fever >100.4 Stop: 06/02/25 21:31 Acetaminophen (Acetaminophen 325 Mg Tablet) 650 mg PO Q6H PRN PRN Reason: PAIN SCALE 1-3 (mild Stop: 06/02/25 21:31 Benzocaine (Benzocaine 20% (Hurricaine) [place] 1 Dose) 0 dose TOP X1 ONE Stop: 05/04/25 14:38 Benzocaine (Benzocaine 20% (Hurricaine) [place] 1 Dose) Confirm Administered Dose 1 dose TOP .STK-MED ONE Stop: 05/04/25 14:53 Diphenhydramine HCl (Diphenhydramine Inj 50 Mg/Ml Vial) 25 mg IVP [id number] PRN PRN Reason: MODERATE SEDATION Diphenhydramine HCl (Diphenhydramine Inj 50 Mg/Ml Vial) Confirm Administered Dose 50 mg .ROUTE .STK-MED ONE Stop: 05/04/25 14:54 Fentanyl Citrate (Fentanyl Cit Inj 50 Mcg/Ml Amp 2ml) 50 mcg IVP Q2M PRN PRN Reason: MODERATE SEDATION Fentanyl Citrate (Fentanyl Cit Inj 50 Mcg/Ml Amp 2ml) Confirm Administered Dose 100 mcg .ROUTE .STK-MED ONE Stop: 05/04/25 14:53 Pantoprazole Sodium (Protonix/Ns 80mg Iv Premix) 80 mg in 100 mls @ 400 mls/hr IV X1 ONE Stop: 05/03/25 20:00 Last Admin: 05/03/25 21:18 Dose: Not Given Documented By: EE Non-Admin Reason: Called Pharm- pend delivery Octreotide Acetate 1,000 mcg/ (Sodium Chloride) 102 mls @ 5.1 mls/hr IV .Q20H ONE; Protocol Stop: 05/04/25 15:59 Last Admin: 05/03/25 20:30 Dose: 50 mcg/hr, 5.1 mls/hr Documented By: EE Ceftriaxone Sodium/Dextrose (Rocephin/D5w 1gm Iv Premix) 1 gm in 50 mls @ 100 mls/hr IV STAT STA Stop: 05/03/25 20:25 Last Infusion: 05/03/25 21:17 Dose: Infused Documented By: Admin: 05/03/25 20:34 Dose: 100 mls/hr Documented By: HAYDEN Pantoprazole Sodium (Protonix/Ns 80mg Iv Premix) 80 mg in 100 mls @ 10 mls/hr IV X1 ONE Stop: 05/04/25 06:44 Last Infusion: 05/04/25 07:00 Dose: Infused Documented By: Admin: 05/03/25 20:43 Dose: 10 mls/hr Documented By: HAYDEN Magnesium Sulfate (Magnesium Sulfate Ivpb) 4 gm in 50 mls @ 12.5 mls/hr IV X1 ONE Stop: 05/04/25 18:26 Last Admin: 05/04/25 16:33 Dose: 12.5 mls/hr Documented By: JENY Potassium Chloride (Kcl Ivpb) 10 meq in 100 mls @ 100 mls/hr IV Q1H CARLENE Stop: 05/04/25 18:29 Last Admin: 05/04/25 20:02 Dose: 100 mls/hr Documented By: Infusion: 05/04/25 19:47 Dose: Infused Documented By: Admin: 05/04/25 18:47 Dose: 100 mls/hr Documented By: Infusion: 05/04/25 18:42 Dose: Infused Documented By: Admin: 05/04/25 17:42 Dose: 100 mls/hr Documented By: Infusion: 05/04/25 17:35 Dose: Infused Documented By: Admin: 05/04/25 16:35 Dose: 100 mls/hr Documented By: JENY Lidocaine (Lidocaine 5% 1 Patch) 1 patch TOP X1 ONE Stop: 05/05/25 19:49 Last Admin: 05/05/25 20:33 Dose: 1 patch Documented By: LAVINIA Midazolam HCl (Midazolam Inj 1 Mg/Ml Vial 2 Ml) 2 mg IVP Q2M PRN PRN Reason: Moderate Sedation Midazolam HCl (Midazolam Inj 1 Mg/Ml Vial 2 Ml) Confirm Administered Dose 4 mg .ROUTE .STK-MED ONE Stop: 05/04/25 14:54 Octreotide Acetate (Octreotide Acet Inj 50 Mcg/Ml Vial) 50 mcg IV X1 ONE Stop: 05/03/25 19:45 Last Admin: 05/03/25 20:30 Dose: 50 mcg Documented By: EE Ondansetron HCl (Ondansetron Odt 4 Mg Tabrap) 4 mg PO X1 ONE; Protocol Stop: 05/03/25 19:47 Last Admin: 05/03/25 20:45 Dose: Not Given Documented By: EE Non-Admin Reason: Cancelled by Provider Ondansetron HCl (Ondansetron Inj 2 Mg/Ml Inj 2 Ml) 4 mg IVP X1 ONE; Protocol Stop: 05/03/25 20:47 Last Admin: 05/03/25 21:16 Dose: 4 mg Documented By: EE Pantoprazole Sodium (Pantoprazole Inj 40 Mg Vial) 80 mg IVP X1 ONE Stop: 05/03/25 19:46 Last Admin: 05/03/25 20:32 Dose: 80 mg Documented By: EE Thiamine HCl (Thiamine Inj 100 Mg/Ml Vial 2 Ml) 100 mg IVP X1 ONE Stop: 05/04/25 14:46 Last Admin: 05/04/25 15:46 Dose: Not Given Documented By: GM Non-Admin Reason: Discontinued See above Consultations Consultation(s) initiated? (list below): Yes Diagnosis GI bleed differential diagnosis: other (See MDM) Most likely diagnosis given after review of the tests above:: GI bleed, melena, hematochezia hematemesis Admission Indicated Admission indicated?: indicated Admission Request Was there a request for admission?: Yes Admission Attestation Admission request attestation: Discussed case with Hospitalist service regarding admission. Discussed patients ED course, exam findings, labs, and radiology results. The Hospitalist [agrees] to accept the patient for admission. Disposition Plan Disposition Plan: Admit Critical Care Time Critical Care Time Critical Care Time: Yes Total Critical Care Time (min.): 60 Attestation: Due to a high probability of clinically significant, life threatening deterioration, the patient required my highest level of preparedness to intervene emergently and I personally spent this critical care time directly and personally managing the patient. This critical care time included obtaining a history; examining the patient; pulse oximetry; ordering and review of studies; arranging urgent treatment with development of a management plan; evaluation of patient's response to treatment; frequent reassessment; and, discussions with other providers. This critical care time was performed to assess and manage the high probability of imminent, life-threatening deterioration that could result in multi-organ failure. It was exclusive of separately billable procedures and treating other patients and teaching time. Discharge Plan Plan Patient Disposition: Admit Acute Care w/in Hospital Problem List Clinical Impression: Acute upper GI bleed, Cirrhosis of liver, Alcoholism, chronic
--- NOTE | 2025-05-03 19:56 | EDNOTE_ITS ---
ED GI Bleed RME/HPI General Chief complaint: Flu Like Symptoms Stated complaint: SOB, DIZZINESS, HEADACHES, VOMIT BLOOD Time Seen by Provider: 05/03/25 14:19 Arrival date/time: 05/03/25 13:37 Mode of arrival: ambulatory RME / HPI RME / HPI Narrative: 05/03/25 13:37 54-year-old male with a history of liver cirrhosis presents to the emergency room with a chief complaint of vomiting blood and black tarry stools x 3 days I have greeted and performed a focused initial assessment of this patient. A comprehensive ED assessment and evaluation of the patient, analysis of all test results, and completion of the medical decision making process will be conducted by additional ED providers. DR. GUALLPA MAIN ED EVALUATION: 54 y/o male with Hx of Alcohol Dependence, GI Bleed,and variceal intervention presents with 4 episodes of bloody emesis and 1 episodes of bloody and black. Patient also reports feeling pale. Last consumption of alcohol was approximately 1 month ago. Denies chest pain, shortness of breath. Denies any allergies to medications. Denies history of illicit drug abuse. No other concerns or complaints expressed at this time. Related Data Previous Rx's ?Medication ?Instructions ?Recorded carvedilol 3.125 mg tablet 3.125 mg PO BIDWM 1 month # 60 tabs 04/10/25 Allergies Allergy/AdvReac Type Severity Reaction Status Date / Time No Known Allergies Allergy Verified 05/03/25 13:41 Review of Systems Review of Systems Systems Reviewed: All systems reviewed, normal except as documented Past Medical History Past Medical History GASTROINTESTINAL: Positive Hepatitis, Cirrhosis and Gastrointestinal Bleed OTHER HISTORY: Positive Blood Transfusions (2 Units of PRBcs received) Social History ALCOHOL: Current ED Exam Narrative Physical exam: Physical Exam: GEN. APPEARANCE: The patient is alert awake oriented X-3 in no distress, lying down comfortably, does appear chronically ill. Patient has good eye contact. Patient is cooperative. VITALS: All vitals were reviewed and the pulse ox is 100% on room air which is normal according to my interpretation. HEENT: Normocephalic, atraumatic. Pupils are equal and reactive. Oral mucosa is moist. Patent Nares NECK: Supple, nontender, no thyromegaly, no meningismus, no JVD CHEST: Symmetrical, atraumatic, and with equal expansion , Nontender on palpation no deformity and no crepitus. CARDIOVASCULAR: Heart regular rhythm no murmur or gallop rub or extra beats. LUNGS: Clear to auscultation bilaterally with symmetrical chest rise. No laboring tachypnea or wheezing. No intercostal subcostal retraction. No rales and no rhonchi. ABDOMEN: Soft, flat, nontender to palpation, no guarding or rebound tenderness. There are no abnormal masses palpated. Active and normal bowel sounds. EXTREMITIES: Nontender. No edema. No cyanosis. Patient is able to move all 4 extremities well, with full ROM and good CSM. SKIN: Warm and dry, no jaundice or rashes noted. NEURO: Patient is GARCIA x 4, There is no focal neurologic deficits noted. GCS is 15, PNS and STRETCHER AND DRIER appear grossly intact. PSYCHIATRIC: Patient is in normal mood and affect. Course Quality Measures none Orders Category Date Time Status Transfuse,blood/blood products NOW Care 05/03/25 19:42 Active Consult to Gastroenterology Stat Cons 05/03/25 20:48 Ordered CBC Stat Lab 05/03/25 15:09 Completed CMP [Comprehensive Metabolic Panel] Stat Lab 05/03/25 15:09 Completed Lipase Stat Lab 05/03/25 15:09 Completed PT [Prothrombin Time with INR] Stat Lab 05/03/25 15:09 Completed PTT [Partial Thromboplastin Time] Stat Lab 05/03/25 15:09 Completed Path Review Blood Smear Stat Lab 05/03/25 15:09 Completed Red Blood Cells Stat Lab 05/03/25 19:53 Completed Type and Screen Stat Lab 05/03/25 15:09 Completed Type and Screen Stat Lab 05/03/25 19:53 Completed UA [Urinalysis] Stat Lab 05/03/25 15:22 Completed Urine Culture Stat Lab 05/03/25 15:22 Results Octreotide Acet Inj [SandoSTATIN Inj] Med 05/03/25 19:44 Discontinued 50 mcg IV X1 ONE Ondansetron Inj [Zofran Inj] Med 05/03/25 20:46 Discontinued 4 mg IVP X1 ONE Ondansetron Odt [Zofran Odt] Med 05/03/25 19:46 Discontinued 4 mg PO X1 ONE Pantoprazole Inj [Protonix Inj] Med 05/03/25 19:45 Discontinued 80 mg IVP X1 ONE Pantoprazole/Ns 80Mg IV Premix [Protonix/NS 80mg IV Med 05/03/25 19:46 Discontinued Premix] 80 mg in 100 ml IV X1 Pantoprazole/Ns 80Mg IV Premix [Protonix/NS 80mg IV Med 05/03/25 20:45 Discontinued Premix] 80 mg in 100 ml IV X1 Sodium Chloride 0.9% [Ns] 100 ml Med 05/03/25 19:44 Pending Octreotide Acet Inj [SandoSTATIN Inj] 1,000 mcg IV 50 mcg/hr Sodium Chloride 0.9% [Ns] 100 ml Med 05/03/25 20:00 Active Octreotide Acet Inj [SandoSTATIN Inj] 1,000 mcg IV 50 mcg/hr cefTRIAXone/D5w 1gm IV premix [Rocephin/D5w 1gm IV Med 05/03/25 19:56 Discontinued premix] 1 gm in 50 ml IV STAT Vital Signs Vital signs: Vital Signs Temperature 99.1 F 05/03/25 14:28 Pulse Rate 109 H 05/03/25 14:28 Respiratory Rate 18 05/03/25 14:28 Blood Pressure 119/67 05/03/25 14:28 Pulse Oximetry (%) 100 05/03/25 14:28 Oxygen Delivery Method Room Air 05/03/25 14:28 GI Bleed MDM Narrative MDM Narrative:: Scribe Attestation: IUte, am scribing for and in the presence of Dr. Guallpa. Provider Notation: Although this document has been carefully reviewed, there may still be some phonetic and other typographical errors. These errors are purely grammatical due to imperfections in the software program and should not be construed in any way to compromise the substance of the patient's medical care during this visit. Patient is a 54-year-old male with medical history notable for alcohol use disorder, cirrhosis, variceal bleeding, to the emerged from concerns for hematemesis, melena and hematochezia. Vital signs and exam as listed. Concern for variceal bleed, upper GI bleed, gastritis among others. Prior provider evaluated patient. Ordered labs. Labs within evidence of hemoglobin 5. No significant acute electrolyte abnormality, patient has chronic hyperbilirubinemia. Patient does not have any abdominal pain. On my evaluation patient is pale, has a nontender abdomen, hemodynamically stable not in distress. I Placed patient resuscitation room, obtain IV access. Ordered labs, octreotide bolus and drip, Protonix bolus and drip. I also ordered 2 units of blood. Discussed case with on-call batting machine operator insulation Dr. Wagner, will perform endoscopy tomorrow. Discussed case with hospitalist,, excepted patient for admission Patient data External records reviewed:: [facility] previous records (Reviewed prior ED records from 04/11/25. Patient was seen for Acute upper GI bleed.) Clinical information provided by:: patient Social determinants that could affect healthcare access:: alcohol use Patient has the following chronic illnesses:: Hepatitis, Cirrhosis and Gastrointestinal Bleed How is presenting disease/condition affected by chronic disease/condition?: exacerbated by Evaluation data The following diagnostics were reviewed and interpreted by me:: lab results Lab and/or radiology exams considered but not ordered:: None Interpretation Summary: See MDM above Medications / Prescriptions Medications or Prescriptions considered but not ordered:: None Medication administrations:: Medication Administration History Acetaminophen (Acetaminophen 325 Mg Tablet) 325 mg PO Q6H PRN PRN Reason: Fever >100.4 Stop: 06/02/25 21:31 Acetaminophen (Acetaminophen 325 Mg Tablet) 325 mg PO Q6H PRN PRN Reason: PAIN SCALE 1-3 (mild Stop: 06/02/25 21:31 Carvedilol (Carvedilol 3.125 Mg Tablet) 3.125 mg PO BIDWM CARLENE Stop: 06/03/25 17:29 Folic Acid (Folic Acid Inj 1 Mg/0.2 Ml) 1 mg IVP QDAY CARLENE Stop: 06/03/25 14:29 Octreotide Acetate 1,000 mcg/ (Sodium Chloride) 102 mls @ 5.1 mls/hr IV .Q20H CARLENE; Protocol Stop: 05/08/25 19:44 Octreotide Acetate 1,000 mcg/ (Sodium Chloride) 102 mls @ 5.1 mls/hr IV .Q20H ONE; Protocol Stop: 05/04/25 15:59 Last Admin: 05/03/25 20:30 Dose: 50 mcg/hr, 5.1 mls/hr Documented By: EE Ceftriaxone Sodium/Dextrose (Rocephin/D5w 1gm Iv Premix) 1 gm in 50 mls @ 100 mls/hr IV 2100 CARLENE Stop: 05/11/25 20:59 Magnesium Sulfate (Magnesium Sulfate Ivpb) 4 gm in 50 mls @ 12.5 mls/hr IV X1 ONE Stop: 05/04/25 18:26 Potassium Chloride (Kcl Ivpb) 10 meq in 100 mls @ 100 mls/hr IV Q1H CARLENE Stop: 05/04/25 18:29 Ondansetron HCl (Ondansetron Inj 2 Mg/Ml Inj 2 Ml) 4 mg IVP Q6H PRN; Protocol PRN Reason: NAUSEA OR VOMITING Stop: 06/02/25 21:31 Pantoprazole Sodium (Pantoprazole Inj 40 Mg Vial) 40 mg IVP BID CARLENE Stop: 06/03/25 08:59 Last Admin: 05/04/25 08:50 Dose: 40 mg Documented By: LASHA Thiamine HCl (Thiamine Inj 100 Mg/Ml Vial 2 Ml) 100 mg IVP X1 ONE Stop: 05/04/25 14:46 Discontinued Medications Acetaminophen (Acetaminophen 325 Mg Tablet) 650 mg PO Q6H PRN PRN Reason: Fever >100.4 Stop: 06/02/25 21:31 Acetaminophen (Acetaminophen 325 Mg Tablet) 650 mg PO Q6H PRN PRN Reason: PAIN SCALE 1-3 (mild Stop: 06/02/25 21:31 Acetaminophen (Acetaminophen 325 Mg Tablet) 650 mg PO Q6H PRN PRN Reason: Fever >100.4 Stop: 06/02/25 21:31 Acetaminophen (Acetaminophen 325 Mg Tablet) 650 mg PO Q6H PRN PRN Reason: PAIN SCALE 1-3 (mild Stop: 06/02/25 21:31 Pantoprazole Sodium (Protonix/Ns 80mg Iv Premix) 80 mg in 100 mls @ 400 mls/hr IV X1 ONE Stop: 05/03/25 20:00 Last Admin: 05/03/25 21:18 Dose: Not Given Documented By: HAYDEN Non-Admin Reason: Called Pharm- pend delivery Ceftriaxone Sodium/Dextrose (Rocephin/D5w 1gm Iv Premix) 1 gm in 50 mls @ 100 mls/hr IV STAT STA Stop: 05/03/25 20:25 Last Infusion: 05/03/25 21:17 Dose: Infused Documented By: Admin: 05/03/25 20:34 Dose: 100 mls/hr Documented By: EE Pantoprazole Sodium (Protonix/Ns 80mg Iv Premix) 80 mg in 100 mls @ 10 mls/hr IV X1 ONE Stop: 05/04/25 06:44 Last Infusion: 05/04/25 07:00 Dose: Infused Documented By: Admin: 05/03/25 20:43 Dose: 10 mls/hr Documented By: EE Octreotide Acetate (Octreotide Acet Inj 50 Mcg/Ml Vial) 50 mcg IV X1 ONE Stop: 05/03/25 19:45 Last Admin: 05/03/25 20:30 Dose: 50 mcg Documented By: EE Ondansetron HCl (Ondansetron Odt 4 Mg Tabrap) 4 mg PO X1 ONE; Protocol Stop: 05/03/25 19:47 Last Admin: 05/03/25 20:45 Dose: Not Given Documented By: HAYDEN Non-Admin Reason: Cancelled by Provider Ondansetron HCl (Ondansetron Inj 2 Mg/Ml Inj 2 Ml) 4 mg IVP X1 ONE; Protocol Stop: 05/03/25 20:47 Last Admin: 05/03/25 21:16 Dose: 4 mg Documented By: EE Pantoprazole Sodium (Pantoprazole Inj 40 Mg Vial) 80 mg IVP X1 ONE Stop: 05/03/25 19:46 Last Admin: 05/03/25 20:32 Dose: 80 mg Documented By: HAYDEN See above if any Consultations Consultation(s) initiated? (list below): Yes Consultation #1 (Physician, Specialty, Details): Discussed with Dr. Gerardo for admission. Reviewed the patient?s HPI, PMHx, lab and/or radiology results. Discussed treatment plan. Will consult an admission to the hospitalist. Time: 20:47 Consultation #2 (Physician, Specialty, Details): Dr. Wagner made aware of the patient?s HPI, PMHx, lab and/or radiology results. Discussed treatment plan. Will consult. Time: 20:48 Diagnosis GI bleed differential diagnosis: esophageal varices, gastritis, Shannon-Stern syndrome, Upper gastrointestinal hemorrhage, Lower gastrointestinal hemorrhage, hematochezia, melena and anal fissure Most likely diagnosis given after review of the tests above:: Acute upper GI bleed, Cirrhosis of liver, Alcoholism, chronic Admission Indicated Admission indicated?: indicated Explain why admission is indicated or not indicated:: Acute upper GI bleed, Cirrhosis of liver, Alcoholism, chronic Admission Request Was there a request for admission?: Yes Admission Attestation Admission request attestation: Discussed case with Hospitalist service regarding admission. Discussed patients ED course, exam findings, labs, and radiology results. The Hospitalist [agrees] to accept the patient for admission. Disposition Plan Disposition Plan: Admit Critical Care Time Critical Care Time Critical Care Time: Yes Total Critical Care Time (min.): 60 Attestation: Due to a high probability of clinically significant, life threatening deterioration, the patient required my highest level of preparedness to intervene emergently and I personally spent this critical care time directly and personally managing the patient. This critical care time included obtaining a history; examining the patient; pulse oximetry; ordering and review of studies; arranging urgent treatment with development of a management plan; evaluation of patient's response to treatment; frequent reassessment; and, discussions with other providers. This critical care time was performed to assess and manage the high probability of imminent, life-threatening deterioration that could result in multi-organ failure. It was exclusive of separately billable procedures and treating other patients and teaching time. Please see MDM section and the rest of the note for further information on patient assessment and treatmen Discharge Plan Plan Patient Disposition: Admit Acute Care w/in Hospital Problem List Clinical Impression: Acute upper GI bleed, Cirrhosis of liver, Alcoholism, chronic
[2025-05-03] MEDS: OCTREOTIDE ACET INJ 1,000 MCG in SODIUM CHLORIDE 0.9% 100 ML 5.1 MCG IV (20:30)
[2025-05-03] MEDS: OCTREOTIDE ACET INJ 50 mCg/ML VIAL IV (20:30)
[2025-05-03] MEDS: cefTRIAXone/D5w 1gm IV premix 1 GM/50 ML BAG IV (20:34)
[2025-05-03] MEDS: PANTOPRAZOLE/NS 80MG IV PREMIX 80 MG/100 ML BAG 10 MG IV (20:43)
[2025-05-03] MEDS: ONDANSETRON INJ 2 MG/ML INJ 2 ML 4 MG IVP (21:16)
--- NOTE | 2025-05-03 21:35 | ESHP_ITS ---
Documentation for date of: 05/03/25 HPI History of Present Illness Chief complaint: Hematemesis History of present illness: 54-year-old male with past medical history of alcoholic cirrhosis who presented to the ED due to hematemesis. Patient states that around 1 in the morning patient had at least 2 episodes of gushing bloody vomiting. During today he also had at least 2?3 more episodes. Nothing triggered it just came out suddenly prior to going to bed. Patient also endorses been having dark tarry stools for the past couple of days. He had recent admission to this institution for similar presentation and had esophageal varices banding by GI services. He denies any fever, chills, shortness of breath, chest pain, abdominal pain, changes in urinary habits. ED course: BP 119/67, HR 109, RR 18, saturating 100% on room air, labs significant for hemoglobin of 5.9, hematocrit 18.9%, PT 15, INR 1.5, BUN 26, glucose 121, T. bili 1.6, AST 70, ALT 24, alk phos 132, urinalysis shows evidence of UTI. In the ED patient received 2 PRBC blood transfusion, loading dose of Protonix, started on octreotide drip. They consulted gastroenterology who recommended admission for possible EGD. PMHx: As above SX Hx: History of esophageal varices status post banding Social Hx: Chronic alcohol use drinks at least 12 packs of beer every day however quit since his last admission per the patient, denies illicit substance including THC FH X: Cancer, [place], aunt- from cirrhotic liver. Review of Systems Review of Systems Systems Reviewed: All systems reviewed, normal except as documented Exam Vital Signs Temp Pulse Resp BP Pulse Ox O2 Del Method 98.1 F 77 18 136/61 H 100 Room Air 05/03/25 21:15 05/03/25 21:15 05/03/25 21:15 05/03/25 21:15 05/03/25 21:15 05/03/25 20:04 Narrative Exam Physical Exam GENERAL: NAD, AAOx3, pale, jaundice HEENT: Moist mucosa. Eyes open, symmetrical, & clear CARDIO: Heart RRR, no obvious murmurs PULM: No noted coughing/dyspnea CTA B/L, no R/W/R GI: Abdomen soft, nondistended, no pain on palpation. BSx4 SKIN/MSK/EXT: No wounds/rashes/edema/amputations, no pain on palpation. Pedal pulses present B/L NEURO: AAOx3, no focal neuro deficits, able to move all 4 extremities Results: Labs 05/03/25 15:09 05/03/25 15:09 Labs: Short CBC 05/03/25 Range/Units 15:09 WBC 10.3 (3.8-10.6) Thou/mm3 Hgb 5.9 L* (13.5-16.0) g/dL Hct 18.9 L* (41.0-53.0) % Plt Count 153 D (140-440) Thou/mm3 BMP 05/03/25 15:09 Sodium 140 Potassium 4.3 Chloride 105 Carbon Dioxide 25.0 BUN 26 H Creatinine 0.8 Glucose 121 H Calcium 7.8 L Liver Function 05/03/25 Range/Units 15:09 Total Bilirubin 1.6 H (0.3-1.2) mg/dL AST 70 H (0-34) U/L ALT 24 (10-49) U/L Alkaline Phosphatase 132 H (46-116) U/L Albumin 2.8 L (3.5-5.0) gm/dL Urine 05/03/25 Range/Units 15:22 Urine Color Yellow (Lt Yel-Yel) Urine Clarity Turbid A (Clear/Hazy) Urine pH 6.0 (5.0-7.0) Ur Specific [place] 1.019 (1.001-1.035) Urine Protein Trace (Neg - Trace) Urine Glucose (UA) Negative (Negative) Quality Measures Quality Measures none Medications Home Medications and Allergies Allergies Allergy/AdvReac Type Severity Reaction Status Date / Time No Known Allergies Allergy Verified 05/03/25 13:41 Visit Medications Octreotide Acetate 1,000 mcg/ (Sodium Chloride) 102 mls @ 5.1 mls/hr IV .Q20H CARLENE; Protocol Stop: 05/08/25 19:44 Octreotide Acetate 1,000 mcg/ (Sodium Chloride) 102 mls @ 5.1 mls/hr IV .Q20H ONE; Protocol Stop: 05/04/25 15:59 Last Admin: 05/03/25 20:30 Dose: 50 mcg/hr, 5.1 mls/hr Pantoprazole Sodium (Protonix/Ns 80mg Iv Premix) 80 mg in 100 mls @ 10 mls/hr IV X1 ONE Stop: 05/04/25 06:44 Last Admin: 05/03/25 20:43 Dose: 10 mls/hr Discontinued Medications Pantoprazole Sodium (Protonix/Ns 80mg Iv Premix) 80 mg in 100 mls @ 400 mls/hr IV X1 ONE Stop: 05/03/25 20:00 Last Admin: 05/03/25 21:18 Dose: Not Given Ceftriaxone Sodium/Dextrose (Rocephin/D5w 1gm Iv Premix) 1 gm in 50 mls @ 100 mls/hr IV STAT STA Stop: 05/03/25 20:25 Last Infusion: 05/03/25 21:17 Dose: Infused Octreotide Acetate (Octreotide Acet Inj 50 Mcg/Ml Vial) 50 mcg IV X1 ONE Stop: 05/03/25 19:45 Last Admin: 05/03/25 20:30 Dose: 50 mcg Ondansetron HCl (Ondansetron Odt 4 Mg Tabrap) 4 mg PO X1 ONE; Protocol Stop: 05/03/25 19:47 Last Admin: 05/03/25 20:45 Dose: Not Given Ondansetron HCl (Ondansetron Inj 2 Mg/Ml Inj 2 Ml) 4 mg IVP X1 ONE; Protocol Stop: 05/03/25 20:47 Last Admin: 05/03/25 21:16 Dose: 4 mg Pantoprazole Sodium (Pantoprazole Inj 40 Mg Vial) 80 mg IVP X1 ONE Stop: 05/03/25 19:46 Last Admin: 05/03/25 20:32 Dose: 80 mg Assessment & Plan Plan 54-year-old male with past medical history as stated above who presented to the ED due to hematemesis. Patient will be admitted for GI workup for GI bleed. #Melena and #Hematemesis likely secondary to #Decompensated Cirrhotic liver disease #Chronic alcohol use #History of esophageal varices status post banding Patient with multiple episodes of hematemesis at least total of 5 episodes Patient also endorses some dark tarry stools onset of both symptoms around 2 to 3 days ago. On arrival hemoglobin was 5.9 Patient is transfusing 2 PRBCs as we speak Abdomen is not distended or tender to palpation no concern for SBP at this time, however will cover prophylactically Child Escobar Score 8 - Class B: 1 year survival rate of 80% MELD Score 14 - 6% estimated 3 month mortality MADDREY Score 11- No indication for steroid treatment for alcoholic hepatitis ? Follow-up posttransfusion H&H ? Octreotide drip ? Pantoprazole 40 mg IV twice daily ? N.p.o. for possible GI intervention ? Transfuse if hemoglobin less than 7 ? GI consulted, appreciate recommendations ? Per patient and family member the patient has not consumed alcohol since prior admission (dc on 04/11), will hold off on CIWA protocol at this time, monitor for signs of withdrawal symptoms #Microcytic anemia Likely in the setting of acute GI bleed Hemoglobin on arrival 5.9, MCV 79 ? Monitor CBCs, continue to transfuse if Hg remains <7 #Asymptomatic Pyuria Patient denies dysuria, urgency or frequency. UA positive for leukocyte esterase, urine WBC 471. +4 bacteria Similar to prior UAs - on Abx as above Case discussed with my attending Dr. Lu Rosas MD PGY-2 Disclaimer: Despite multiple revisions, due to the dictation software being used, the document bellow may not be free of grammatical errors including phonetic/typographic errors. However, this does not deter from our commitment to providing health care in the patient's best interest in mind. Attending Provider Attestation/Addendum Include liver cirrhosis was admitted for GI bleed. Patient has esophageal varices from prior EGD. Hemoglobin is 5.9. The patient is receiving PRBCs. Patient has normal blood pressure nontachycardic. Patient was seen and evaluated in ED bed 10. He is awake and able to follow commands. I discussed with and supervised the resident physician who took care of this patient. I agree with the assessment and plan as above.
--- NOTE | 2025-05-03 21:56 | PD.IMCONS ---
HPI Data of Consult Requesting Physician: Santos Leigh MD Primary Care Provider: Eliezer Rosas MD Consult Narrative Reason for consult: Hematemesis, melena History of present illness: 54 years old male present to the hospital with hematemesis and melanotic stools He has not drank for about a month according to the history He did have on 04/08/2025 upper endoscopy with band ligation of the esophageal varices cc:: cc: Santos Leigh MD Review of Systems Review of Systems Systems Reviewed: All systems reviewed, normal except as documented Meds Home Medications and Allergies Home Medications ?Medication ?Instructions ?Recorded ?Confirmed ?Type pantoprazole 40 mg tablet,delayed 40 mg PO QDAY 05/04/25 05/04/25 History release Allergies Allergy/AdvReac Type Severity Reaction Status Date / Time No Known Allergies Allergy Verified 05/03/25 13:41 Exam Vital Signs Temp Pulse Resp BP Pulse Ox O2 Del Method 98.1 F 77 18 136/61 H 100 Room Air 05/03/25 21:15 05/03/25 21:15 05/03/25 21:15 05/03/25 21:15 05/03/25 21:15 05/03/25 20:04 Constitutional Comments: Chronically ill-appearing Routine Respiratory Exam Comments: Normal to auscultation Routine Abdominal Exam Comments: Soft nontender positive bowel sounds Results Labs 05/04/25 16:01 05/04/25 04:59 Labs: Short CBC 05/03/25 Range/Units 15:09 WBC 10.3 (3.8-10.6) Thou/mm3 Hgb 5.9 L* (13.5-16.0) g/dL Hct 18.9 L* (41.0-53.0) % Plt Count 153 D (140-440) Thou/mm3 BMP 05/03/25 15:09 Sodium 140 Potassium 4.3 Chloride 105 Carbon Dioxide 25.0 BUN 26 H Creatinine 0.8 Glucose 121 H Calcium 7.8 L Liver Function 05/03/25 Range/Units 15:09 Total Bilirubin 1.6 H (0.3-1.2) mg/dL AST 70 H (0-34) U/L ALT 24 (10-49) U/L Alkaline Phosphatase 132 H (46-116) U/L Albumin 2.8 L (3.5-5.0) gm/dL Urine 05/03/ Range/Units 15:22 Urine Color Yellow (Lt Yel-Yel) Urine Clarity Turbid A (Clear/Hazy) Urine pH 6.0 (5.0-7.0) Ur Specific [place] 1.019 (1.001-1.035) Urine Protein Trace (Neg - Trace) Urine Glucose (UA) Negative (Negative) Assessment and Plan Additional Assessment & Plan Additional Plan: Hematemesis in the setting of chronic liver disease secondary to alcohol with previous history of band ligation of the esophageal varices Plan Consent obtained for fiberoptic esophagogastroduodenoscopy with possible biopsy possible therapeutic intervention under intravenous moderate sedation IV octreotide at 50 mcg/h IV Protonix to continue Serial CBC Will follow the patient Thank you very much for the opportunity to participate in the care of this patient
[2025-05-04] VITALS (42 sets, daily range): BP systolic 115–164; BP diastolic 56–81; PULSE 68–93; RESP 12–100; TEMP 36.1–37.3; O2SAT 96–100
[2025-05-04 05:50] LABS: Basophils # (Auto) 0.0 Thou/mm3 (0.0-0.2); Basophils % (Auto) 0 % (0-2.5); Eosinophils # (Auto) 0.1 Thou/mm3 (0.0-0.5); Eosinophils % (Auto) 2 % (0-10); Hematocrit 21.5 % (41.0-53.0); Immature Granulocytes Auto 0.02 Thou/mm3 (0.00-0.00); Lymphocytes # (Auto) 0.7 Thou/mm3 (1.0-4.8); Lymphocytes % (Auto) 15 % (10-50); Mean Corpuscular HGB Conc 34.0 g/dl (31.0-37.0); Mean Corpuscular Hemoglobin 27.4 pg (25.0-35.0); Mean Corpuscular Volume 81 fL (80-100); Monocytes # (Auto) 0.5 Thou/mm3 (0.0-0.8); Monocytes % (Auto) 11 % (0-12); Neutrophils # (Auto) 3.3 Thou/mm3 (1.8-7.7); Neutrophils % (Auto) 71 % (37-80); Nucleated Red Blood Cell # 0.00 Thou/mm3 (0.00-0.00); Nucleated Red Blood Cell % 0 /100 WBC (0); Platelet Count 105 Thou/mm3 (140-440); RDW Standard Deviation 49.3 fL (35.1-43.9); Red Blood Count 2.66 Miln/mm3 (4.50-5.90); White Blood Count 4.7 Thou/mm3 (3.8-10.6)
[2025-05-04 05:53] LABS: Hemoglobin 7.3 g/dL (13.5-16.0); INR 1.4 (0.9-1.3); Prothrombin Time 14.1 Seconds (9.0-12.2)
[2025-05-04 06:24] LABS: Alanine Aminotransferase 21 U/L (10-49); Albumin, Serum 2.4 gm/dL (3.5-5.0); Albumin/Globulin Ratio 1.0 (1.2-2.2); Alkaline Phosphatase 110 U/L (46-116); Anion Gap 11 (7-16); Aspartate Amino Transferase 63 U/L (0-34); BUN/Creatinine Ratio 30 Ratio (12-20); Bilirubin,Total 1.8 mg/dL (0.3-1.2); Blood Urea Nitrogen 24 mg/dL (9-23); Calcium 7.3 mg/dL (8.3-10.6); Calcium (Corrected) 8.6 mg/dL (8.5-10.1); Carbon Dioxide 23.4 mMol/L (20.0-31.0); Chloride 107 mMol/L (98-107); Creatinine (Component) 0.8 mg/dL (0.6-1.3); Globulin 2.5 gm/dL (2.3-3.5); Glucose 115 mg/dL (74-106); Magnesium 1.7 mg/dL (1.6-2.6); Osmolality,Calculated 286 (275-295); Phosphorous 3.2 mg/dL (2.4-5.1); Potassium 3.8 mMol/L (3.4-5.1); Sodium 141 mMol/L (136-145); Total Protein 4.9 gm/dL (5.7-8.2); eGFR > 60 See Note
--- NOTE | 2025-05-04 08:06 | PC.NURSE ---
PT GCS 15 UPON ASSUMPTION OF CARE, DENIES ANY PAIN OR DISCOMFORT AT THIS TIME, OCTREOTIDE INFUSING, WILL CONT W/POC
--- NOTE | 2025-05-04 08:46 | XR_ITS ---
Examination: Abdomen sonogram, complete Date and time of exam: May 04, 2025, 0931 hours INDICATIONS: MRI examination abdomen 04/09/2000 2510 mm upper lobe right lobe liver lesion. Technique: Multiple real-time grayscale transabdominal sonographic images of the abdomen have been obtained. Findings: Distended gallbladder, thickened gallbladder wall 1.0 cm with edema Common bile duct 0.3 cm Pancreatic head 2.8 cm Aorta not enlarged. Liver 16.1 cm lobular contour fatty infiltration no focal liver lesions Normal hepatopetal portal venous flow Patent IVC Right kidney 12.2 cm renal cortex 1.8 cm Left kidney 11.8 cm renal cortex 2.0 cm Mild renal scar formation Spleen 16.5 cm IMPRESSION: Cirrhosis Significant splenomegaly Abnormal gallbladder wall thickening and edema, recommend HIDA scan or MRCP follow-up to exclude acute cholecystitis
--- NOTE | 2025-05-04 11:13 | ESPR_ITS ---
<Statement entered by Paramjit Anderson MD - 05/07/25 17:19> I reviewed above note and agree with findings and plans. I have also personally examined the patient with medicine team and went over assessment and plan with medical team including spring internship and resident physician. <Statement entered by Ziyad Alegria MD - 05/04/25 15:09> Patient seen and assessed in the hospital bed denies having any concerning symptoms at this time. Patient states that he developed hematemesis twice a day prior to admission and states that bowel movements have also been melanic. Patient will continue on IV octreotide and Protonix with GI consultation in place for endoscopy. Patient received 3 units of PRBC with modest improvement in hemoglobin; moreover, will continue monitoring with repeat H&H in the afternoon. Patient also has a liver lesion which was noted on past MRI and will require 3-month follow-up MRI in June. Will continue monitoring the patient for any acute changes. I have personally seen and examined the patient. I agree with the resident's assessment and plan as documented below. Ziyad Alegria DO PGY-2 Internal Medicine - [facility] Documentation for date of: 05/04/25 Subjective Subjective Interval history: Patient seen at bedside. No acute overnight events. Patient denies any chest pain, shortness of breath, abdominal pain, nausea, vomiting, dizziness. Patient had 3 units packed RBC transfused and repeat hgb was 7.3. EGD showed Grade II esophageal varices. Banded. Gastritis, characterized by erythema. With mucosal oozing of blood in the setting of hypertensive portal gastropathy. Exam Vital Signs Temp Pulse Resp BP Pulse Ox O2 Del Method 98.6 F 68 20 138/65 H 100 Room Air 05/04/25 11:01 05/04/25 11:01 05/04/25 11:01 05/04/25 11:01 05/04/25 11:01 05/04/25 11:01 Narrative Exam GENERAL: NAD, AAOx3, pale, jaundice HEENT: Moist mucosa. Eyes open, symmetrical, & clear CARDIO: Heart RRR, no obvious murmurs PULM: No noted coughing/dyspnea CTA B/L, no R/W/R GI: Abdomen soft, nondistended, no pain on palpation. BSx4 SKIN/MSK/EXT: No wounds/rashes/edema/amputations, no pain on palpation. Pedal pulses present B/L NEURO: AAOx3, no focal neuro deficits, able to move all 4 extremities Objective Labs 05/04/25 16:01 05/04/25 04:59 Labs: Laboratory Results - last 24 hr 05/03/25 05/03/25 05/03/25 15:09 15:22 19:53 WBC 10.3 RBC 2.38 L Hgb 5.9 L* Hct 18.9 L* MCV 79 L MCH 24.8 L MCHC 31.2 RDW Std Deviation 54.6 H Plt Count 153 D Neut % (Auto) 77 Lymph % (Auto) 12 [place] % (Auto) 9 Eos % (Auto) 1 Baso % (Auto) 1 Neut # (Auto) 8.0 H Lymph # (Auto) 1.3 [place] # (Auto) 0.9 H Eos # (Auto) 0.1 Baso # (Auto) 0.1 Immature Gran # (Auto) 0.04 H Absolute Nucleated RBC 0.00 Immature Gran % 0 Nucleated RBC % 0 Smear Path Review Sent to Pathologist PT 15.0 H INR 1.5 H APTT 31.9 Sodium 140 Potassium 4.3 Chloride 105 Carbon Dioxide 25.0 Anion Gap 10 BUN 26 H Creatinine 0.8 Estim Creat Clear Calc Not Performed. eGFR > 60 BUN/Creatinine Ratio 33 H Glucose 121 H Calculated Osmolality 285 Calcium 7.8 L Corrected Calcium 8.8 Phosphorus Magnesium Total Bilirubin 1.6 H AST 70 H ALT 24 Alkaline Phosphatase 132 H Total Protein 5.5 L Albumin 2.8 L Globulin 2.7 Albumin/Globulin Ratio 1.0 L Lipase 29 Ur Collection Type Clean Catch Urine Color Yellow Urine Clarity Turbid A Urine pH 6.0 Ur Specific [place] 1.019 Urine Protein Trace Urine Glucose (UA) Negative Urine Ketones Trace Urine Blood Trace Urine Nitrite Negative Urine Bilirubin Negative Urine Urobilinogen (Auto) Negative Ur Leukocyte Esterase Positive Urine RBC 6 H Urine WBC 471 H Ur Squamous Epith Cells 2 Urine Bacteria 4+ A Hyaline Casts 1 Blood Type O Positive O Positive Antibody Screen NEGATIVE NEGATIVE Crossmatch See Detail Blood Bank Wristband ID Yes Yes 05/04/25 04:59 WBC 4.7 D RBC 2.66 L Hgb 7.3 L D Hct 21.5 L* MCV 81 MCH 27.4 MCHC 34.0 RDW Std Deviation 49.3 H Plt Count 105 L D Neut % (Auto) 71 Lymph % (Auto) 15 [place] % (Auto) 11 Eos % (Auto) 2 Baso % (Auto) 0 Neut # (Auto) 3.3 Lymph # (Auto) 0.7 L [place] # (Auto) 0.5 Eos # (Auto) 0.1 Baso # (Auto) 0.0 Immature Gran # (Auto) 0.02 H Absolute Nucleated RBC 0.00 Immature Gran % 0 Nucleated RBC % 0 Smear Path Review PT 14.1 H INR 1.4 H APTT Sodium 141 Potassium 3.8 D Chloride 107 Carbon Dioxide 23.4 Anion Gap 11 BUN 24 H Creatinine 0.8 Estim Creat Clear Calc Not Performed. eGFR > 60 BUN/Creatinine Ratio 30 H Glucose 115 H Calculated Osmolality 286 Calcium 7.3 L Corrected Calcium 8.6 Phosphorus 3.2 Magnesium 1.7 Total Bilirubin 1.8 H AST 63 H ALT 21 Alkaline Phosphatase 110 D Total Protein 4.9 L Albumin 2.4 L Globulin 2.5 Albumin/Globulin Ratio 1.0 L Lipase Ur Collection Type Urine Color Urine Clarity Urine pH Ur Specific [place] Urine Protein Urine Glucose (UA) Urine Ketones Urine Blood Urine Nitrite Urine Bilirubin Urine Urobilinogen (Auto) Ur Leukocyte Esterase Urine RBC Urine WBC Ur Squamous Epith Cells Urine Bacteria Hyaline Casts Blood Type Antibody Screen Crossmatch Blood Bank Wristband ID Quality Measures Quality Measures none Assessment & Plan Assessment Current Active Medications: Generic Name Dose Route Start Last Admin Trade Name Freq PRN Reason Stop Dose Admin Acetaminophen 325 mg 05/03/25 22:06 Acetaminophen 325 Mg Tablet PO 06/02/25 21:31 Q6H PRN Fever >100.4 Acetaminophen 325 mg 05/03/25 22:06 Acetaminophen 325 Mg Tablet PO 06/02/25 21:31 Q6H PRN PAIN SCALE 1-3 (mild Carvedilol 3.125 mg 05/04/25 17:30 Carvedilol 3.125 Mg Tablet PO 06/03/25 17:29 BIDWM CARLENE Octreotide Acetate 1,000 mcg/ 102 mls @ 5.1 mls/hr 05/03/25 19:44 Sodium Chloride IV 05/08/25 19:44 .Q20H CARLENE Protocol 50 MCG/HR Octreotide Acetate 1,000 mcg/ 102 mls @ 5.1 mls/hr 05/03/25 20:00 05/03/25 20:30 Sodium Chloride IV 05/04/25 15:59 50 mcg/hr .Q20H ONE 5.1 mls/hr Protocol Administration 50 MCG/HR Ceftriaxone Sodium/Dextrose 1 gm in 50 mls @ 100 mls/hr 05/04/25 21:00 Rocephin/D5w 1gm Iv Premix IV 05/11/25 20:59 2100 CARLENE Ondansetron HCl 4 mg 05/03/25 21:32 Ondansetron Inj 2 Mg/Ml Inj 2 Ml IVP 06/02/25 21:31 Q6H PRN NAUSEA OR VOMITING Protocol Pantoprazole Sodium 40 mg 05/04/25 09:00 05/04/25 08:50 Pantoprazole Inj 40 Mg Vial IVP 06/03/25 08:59 40 mg BID CARLENE Administration Plan 54-year-old male with history of alcoholic cirrhosis who presented to the ED due to hematemesis and melena. Patient admitted for GI workup for GI bleed. #Acute microcytic anemia 2/2 #Upper GI bleed #Melena #Hematemesis Patient with multiple episodes of hematemesis at least total of 5 episodes Patient also endorses some dark tarry stools onset of both symptoms around 2 to 3 days ago. Hemoglobin on arrival 5.9, MCV 79 Hgb improved to7.2 after 3u pRBC EGD showed: Grade II esophageal varices. Banded. Gastritis, characterized by erythema. With mucosal oozing of blood in the setting of hypertensive portal gastropathy Plan - Octreotide drip to reduce variceal bleeding. - Pantoprazole 40 mg IV twice daily to manage gastric bleeding. - Monitor CBCs regularly. - Transfuse if hemoglobin remains <7. #Decompensated Cirrhotic liver disease #Hx of chronic alcohol use #Hx of esophageal varices status post banding Abdomen is not distended or tender to palpation however will cover prophylactically for SBP Child Escobar Score 8 - Class B: 1 year survival rate of 80% MELD Score 14 - 6% estimated 3 month mortality MADDREY Score 11- No indication for steroid treatment for alcoholic hepatitis - Monitor LFTs ? GI consulted, appreciate recommendations #EtOH Use disorder Unsure when last drink was Plan ? Monitor for withdrawals ? Thiamine 100 mg daily ? Folate 1 mg daily #Asymptomatic Pyuria Patient denies dysuria, urgency or frequency. UA positive for leukocyte esterase, urine WBC 471. +4 bacteria Urine culture prelim gram-negative rods greater than 100,000 colonies per mL Plan - Continue ceftriaxone 1 g daily Health Maintenance: Diet: CLD GI prophylaxis: Protonix BID DVT prophylaxis: SCDs Antibiotics: CTX 1g/day CODE STATUS: FULL Disposition: TELE Case discussed with my attending Dr. Anderson, and senior resident, Dr. Raji Lujan MD PGY-1
--- NOTE | 2025-05-04 15:18 | SUR.PHASEI ---
pt received from OR in recovery bay 1. pt asleep but responds to voice, breathing unlabored on room air. v/s stable. report received from Ritu ANTHONY.
--- NOTE | 2025-05-04 15:43 | PC.NURSE ---
PER DAX RN, PT FINISHED EGD PROCEDURE; MD FOUND 2 ESOPHAGEAL VARICES, BANDED X1, WELL ESOPHAGITIS. PT TO ABSTAIN FROM COUGHING UNTIL 1700. CONTINUE CLEAR LIQUID DIET; CONTINUE SANDOSTATIN DRIP.
--- NOTE | 2025-05-04 15:50 | SUR.PHASEI ---
pt asleep but responds to voice, breathing unlabored on room air. v/s stable. report called to David Troncoso. pt will be transferred to ER at this time.
[2025-05-04 16:13] LABS: Hematocrit 22.2 % (41.0-53.0)
[2025-05-04 16:19] LABS: Hemoglobin 7.2 g/dL (13.5-16.0)
[2025-05-04] MEDS: Magnesium Sulfate 4 GM Ivpb 4 GM/50 ML BAG IV (16:33)
[2025-05-04] MEDS: POTASSIUM CHL 10 mEq IVPB 10 MEQ/100 ML BAG 100 MEQ IV ×4 (16:35→20:02)
[2025-05-04] MEDS: FOLIC ACID INJ 1 MG/0.2 ML IVP (16:37)
[2025-05-04] MEDS: THIAMINE INJ 100 MG/ML VIAL 2 ML IV (16:37)
[2025-05-04] MEDS: OCTREOTIDE ACET INJ 1,000 MCG in SODIUM CHLORIDE 0.9% 100 ML 5.1 MCG IV (16:50)
[2025-05-04] MEDS: cefTRIAXone/D5w 1gm IV premix 1 GM/50 ML BAG IV (20:02)
[2025-05-05] VITALS (15 sets, daily range): BP systolic 103–138; BP diastolic 57–90; PULSE 62–88; RESP 12–100; TEMP 36.2–37; O2SAT 95–99; BMI 25.4
[2025-05-05 06:18] LABS: Basophils # (Auto) 0.0 Thou/mm3 (0.0-0.2); Basophils % (Auto) 0 % (0-2.5); Eosinophils # (Auto) 0.1 Thou/mm3 (0.0-0.5); Eosinophils % (Auto) 4 % (0-10); Hematocrit 21.7 % (41.0-53.0); Immature Granulocytes Auto 0.01 Thou/mm3 (0.00-0.00); Lymphocytes # (Auto) 0.6 Thou/mm3 (1.0-4.8); Lymphocytes % (Auto) 19 % (10-50); Mean Corpuscular HGB Conc 32.3 g/dl (31.0-37.0); Mean Corpuscular Hemoglobin 26.5 pg (25.0-35.0); Mean Corpuscular Volume 82 fL (80-100); Monocytes # (Auto) 0.5 Thou/mm3 (0.0-0.8); Monocytes % (Auto) 15 % (0-12); Neutrophils # (Auto) 2.1 Thou/mm3 (1.8-7.7); Neutrophils % (Auto) 62 % (37-80); Nucleated Red Blood Cell # 0.00 Thou/mm3 (0.00-0.00); Nucleated Red Blood Cell % 0 /100 WBC (0); Platelet Count 93 Thou/mm3 (140-440); RDW Standard Deviation 53.0 fL (35.1-43.9); Red Blood Count 2.64 Miln/mm3 (4.50-5.90); White Blood Count 3.3 Thou/mm3 (3.8-10.6)
[2025-05-05 06:29] LABS: Hemoglobin 7.0 g/dL (13.5-16.0)
[2025-05-05 06:32] LABS: Alanine Aminotransferase 25 U/L (10-49); Albumin, Serum 2.6 gm/dL (3.5-5.0); Albumin/Globulin Ratio 1.0 (1.2-2.2); Alkaline Phosphatase 111 U/L (46-116); Anion Gap 8 (7-16); Aspartate Amino Transferase 75 U/L (0-34); BUN/Creatinine Ratio 15 Ratio (12-20); Bilirubin,Total 1.8 mg/dL (0.3-1.2); Blood Urea Nitrogen 12 mg/dL (9-23); Calcium 7.5 mg/dL (8.3-10.6); Calcium (Corrected) 8.6 mg/dL (8.5-10.1); Carbon Dioxide 22.5 mMol/L (20.0-31.0); Chloride 105 mMol/L (98-107); Creatinine (Component) 0.8 mg/dL (0.6-1.3); Globulin 2.7 gm/dL (2.3-3.5); Glucose 88 mg/dL (74-106); Magnesium 2.0 mg/dL (1.6-2.6); Osmolality,Calculated 268 (275-295); Phosphorous 2.6 mg/dL (2.4-5.1); Potassium 4.1 mMol/L (3.4-5.1); Sodium 135 mMol/L (136-145); Total Protein 5.3 gm/dL (5.7-8.2); eGFR > 60 See Note
[2025-05-05] MEDS: THIAMINE INJ 100 MG/ML VIAL 2 ML IV (08:55)
[2025-05-05] MEDS: FOLIC ACID INJ 1 MG/0.2 ML IVP (08:55)
--- NOTE | 2025-05-05 09:32 | PC.SS ---
Follow up note: On IV Octreotide. GI bleed.
--- NOTE | 2025-05-05 11:40 | ESPR_ITS ---
<Statement entered by Paramjit Anderson MD - 05/10/25 08:34> I reviewed above note and agree with findings and plans. I have also personally examined the patient with medicine team and went over assessment and plan with medical team including epidemiology intern and resident physician. <Statement entered by Ziyad Alegria MD - 05/05/25 16:18> Patient seen and assessed in hospital bed denies having any concerning symptoms at this time. Patient was transfused 1 unit of PRBC has hemoglobin was 7.0. Patient has grade 2 varices with 1 banding. Will advance diet and monitor for any acute changes. Patient will need close outpatient follow-up with gastroenterology and will need to completely stop drinking alcohol. I have personally seen and examined the patient. I agree with the resident's assessment and plan as documented below. Ziyad Alegria DO PGY-2 Internal Medicine - [facility] Documentation for date of: 05/05/25 Subjective Subjective Interval history: Patient seen at bedside. No acute overnight events. Patient denies any chest pain, shortness of breath, abdominal pain, nausea, vomiting, dizziness. Patient had 1 unit packed RBC transfused today and repeat hgb pending. EGD showed Grade II esophageal varices. Banded. Gastritis, characterized by erythema. With mucosal oozing of blood in the setting of hypertensive portal gastropathy. Exam Vital Signs Temp Pulse Resp BP Pulse Ox O2 Del Method O2 Flow Rate 97.8 F 70 16 126/65 99 Room Air 3 05/05/25 10:02 05/05/25 10:02 05/05/25 10:02 05/05/25 10:02 05/05/25 10:02 05/05/25 08:00 05/04/25 15:10 Narrative Exam GENERAL: NAD, AAOx3, pale, jaundice HEENT: Moist mucosa. Eyes open, symmetrical, & clear CARDIO: Heart RRR, no obvious murmurs PULM: No noted coughing/dyspnea CTA B/L, no R/W/R GI: Abdomen soft, nondistended, no pain on palpation. BSx4 SKIN/MSK/EXT: No wounds/rashes/edema/amputations, no pain on palpation. Pedal pulses present B/L NEURO: AAOx3, no focal neuro deficits, able to move all 4 extremities Objective Labs 05/05/25 05:52 05/05/25 05:52 Labs: Laboratory Results - last 24 hr 05/03/25 05/04/25 05/05/25 19:53 16:01 05:52 WBC 3.3 L RBC 2.64 L Hgb 7.2 L 7.0 L Hct 22.2 L 21.7 L* MCV 82 MCH 26.5 MCHC 32.3 RDW Std Deviation 53.0 H Plt Count 93 L Neut % (Auto) 62 Lymph % (Auto) 19 [place] % (Auto) 15 H Eos % (Auto) 4 Baso % (Auto) 0 Neut # (Auto) 2.1 Lymph # (Auto) 0.6 L [place] # (Auto) 0.5 Eos # (Auto) 0.1 Baso # (Auto) 0.0 Immature Gran # (Auto) 0.01 H Absolute Nucleated RBC 0.00 Immature Gran % 0 Nucleated RBC % 0 Sodium 135 L Potassium 4.1 Chloride 105 Carbon Dioxide 22.5 Anion Gap 8 BUN 12 Creatinine 0.8 Estim Creat Clear Calc Not Performed. eGFR > 60 BUN/Creatinine Ratio 15 Glucose 88 Calculated Osmolality 268 L Calcium 7.5 L Corrected Calcium 8.6 Phosphorus 2.6 Magnesium 2.0 Total Bilirubin 1.8 H AST 75 H ALT 25 Alkaline Phosphatase 111 Total Protein 5.3 L Albumin 2.6 L Globulin 2.7 Albumin/Globulin Ratio 1.0 L Blood Type O Positive Antibody Screen NEGATIVE Crossmatch See Detail Blood Bank Wristband ID Yes Quality Measures Quality Measures none Assessment & Plan Assessment Current Active Medications: Generic Name Dose Route Start Last Admin Trade Name Freq PRN Reason Stop Dose Admin Acetaminophen 325 mg 05/03/25 22:06 Acetaminophen 325 Mg Tablet PO 06/02/25 21:31 Q6H PRN Fever >100.4 Acetaminophen 325 mg 05/03/25 22:06 Acetaminophen 325 Mg Tablet PO 06/02/25 21:31 Q6H PRN PAIN SCALE 1-3 (mild Carvedilol 3.125 mg 05/04/25 17:30 05/05/25 08:57 Carvedilol 3.125 Mg Tablet PO 06/03/25 17:29 3.125 mg BIDWM CARLENE Administration Folic Acid 1 mg 05/04/25 14:30 05/05/25 08:55 Folic Acid Inj 1 Mg/0.2 Ml IVP 06/03/25 14:29 1 mg QDAY CARLENE Administration Ceftriaxone Sodium/Dextrose 1 gm in 50 mls @ 100 mls/hr 05/04/25 21:00 05/04/25 20:02 Rocephin/D5w 1gm Iv Premix IV 05/11/25 20:59 100 mls/hr 2100 CARLENE Administration Octreotide Acetate 1,000 mcg/ 102 mls @ 5.1 mls/hr 05/04/25 16:45 05/04/25 16:50 Sodium Chloride IV 05/08/25 19:59 50 mcg/hr .Q20H CARLENE 5.1 mls/hr Protocol Administration 50 MCG/HR Ondansetron HCl 4 mg 05/03/25 21:32 Ondansetron Inj 2 Mg/Ml Inj 2 Ml IVP 06/02/25 21:31 Q6H PRN NAUSEA OR VOMITING Protocol Pantoprazole Sodium 40 mg 05/04/25 09:00 05/05/25 08:57 Pantoprazole Inj 40 Mg Vial IVP 06/03/25 08:59 40 mg BID CARLENE Administration Thiamine HCl 100 mg 05/04/25 15:30 05/05/25 08:55 Thiamine Inj 100 Mg/Ml Vial 2 Ml IV 06/03/25 15:29 100 mg QDAY CARLENE Administration Plan 54-year-old male with history of alcoholic cirrhosis who presented to the ED due to hematemesis and melena. Patient admitted for GI workup for GI bleed. #Acute microcytic anemia 2/ #Upper GI bleed #Melena #Hematemesis Patient with multiple episodes of hematemesis at least total of 5 episodes Patient also endorses some dark tarry stools onset of both symptoms around 2 to 3 days ago. Hemoglobin on arrival 5.9, MCV 79 Hgb improved to7.2 after 3u pRBC EGD showed: Grade II esophageal varices. Banded. Gastritis, characterized by erythema. With mucosal oozing of blood in the setting of hypertensive portal gastropathy 05/05 Hgb 7 --> transfused 1u pRBC, repeat H&H Plan - Octreotide drip to reduce variceal bleeding x5 days (LD 05/08) - Pantoprazole 40 mg IV twice daily to manage gastric bleeding. - Monitor CBCs regularly. - Transfuse if hemoglobin remains <7. #Decompensated Cirrhotic liver disease #Hx of chronic alcohol use #Hx of esophageal varices status post banding Abdomen is not distended or tender to palpation however will cover prophylactically for SBP Child Escobar Score 8 - Class B: 1 year survival rate of 80% MELD Score 14 - 6% estimated 3 month mortality MADDREY Score 11- No indication for steroid treatment for alcoholic hepatitis - Monitor LFTs ? GI consulted, appreciate recommendations #EtOH Use disorder Unsure when last drink was Plan ? Monitor for withdrawals ? Thiamine 100 mg daily ? Folate 1 mg daily #Asymptomatic Pyuria Patient denies dysuria, urgency or frequency. UA positive for leukocyte esterase, urine WBC 471. +4 bacteria Urine culture prelim gram-negative rods greater than 100,000 colonies per mL Plan - Continue ceftriaxone 1 g daily Health Maintenance: Diet: CLD GI prophylaxis: Protonix BID DVT prophylaxis: SCDs Antibiotics: CTX 1g/day CODE STATUS: FULL Disposition: TELE Case discussed with my attending Dr. Anderson, and senior resident, Dr. Raji Lujan MD PGY-1
[2025-05-05] MEDS: OCTREOTIDE ACET INJ 1,000 MCG in SODIUM CHLORIDE 0.9% 100 ML 5.1 MCG IV (12:52)
[2025-05-05 15:24] LABS: Hematocrit 24.8 % (41.0-53.0)
[2025-05-05 15:28] LABS: Hemoglobin 8.0 g/dL (13.5-16.0)
[2025-05-05] MEDS: cefTRIAXone/D5w 1gm IV premix 1 GM/50 ML BAG IV (20:33)
[2025-05-05] MEDS: LIDOCAINE 5% 1 PATCH TOP (20:33)
--- NOTE | 2025-05-05 21:24 | PD.IMPROG ---
Documentation for date of: 05/05/25 Subjective Subjective Interval history: Patient evaluated Hemoglobin hematocrit 8.0 and 24.5 On octreotide drip Patient status post band ligation of the esophageal varices Exam Vital Signs Temp Pulse Resp BP Pulse Ox O2 Del Method O2 Flow Rate 97.8 F 68 19 138/67 H 99 Room Air 3 05/05/25 20:00 05/05/25 20:00 05/05/25 20:00 05/05/25 20:00 05/05/25 20:00 05/05/25 20:00 05/04/25 15:10 Objective Labs 05/05/25 14:57 05/05/25 05:52 Labs: Laboratory Results - last 24 hr 05/03/25 05/05/25 05/05/25 19:53 05:52 14:57 WBC 3.3 L RBC 2.64 L Hgb 7.0 L 8.0 L Hct 21.7 L* 24.8 L MCV 82 MCH 26.5 MCHC 32.3 RDW Std Deviation 53.0 H Plt Count 93 L Neut % (Auto) 62 Lymph % (Auto) 19 [place] % (Auto) 15 H Eos % (Auto) 4 Baso % (Auto) 0 Neut # (Auto) 2.1 Lymph # (Auto) 0.6 L [place] # (Auto) 0.5 Eos # (Auto) 0.1 Baso # (Auto) 0.0 Immature Gran # (Auto) 0.01 H Absolute Nucleated RBC 0.00 Immature Gran % 0 Nucleated RBC % 0 Sodium 135 L Potassium 4.1 Chloride 105 Carbon Dioxide 22.5 Anion Gap 8 BUN 12 Creatinine 0.8 Estim Creat Clear Calc Not Performed. eGFR > 60 BUN/Creatinine Ratio 15 Glucose 88 Calculated Osmolality 268 L Calcium 7.5 L Corrected Calcium 8.6 Phosphorus 2.6 Magnesium 2.0 Total Bilirubin 1.8 H AST 75 H ALT 25 Alkaline Phosphatase 111 Total Protein 5.3 L Albumin 2.6 L Globulin 2.7 Albumin/Globulin Ratio 1.0 L Blood Type O Positive Antibody Screen NEGATIVE Crossmatch See Detail Blood Bank Wristband ID Yes Impressions Impression: Status post band ligation of the esophageal varices Continue octreotide drip Advance diet as tolerated Assessment & Plan A&P Narrative Hematemesis in the setting of chronic liver disease secondary to alcohol with previous history of band ligation of the esophageal varices Plan Consent obtained for fiberoptic esophagogastroduodenoscopy with possible biopsy possible therapeutic intervention under intravenous moderate sedation IV octreotide at 50 mcg/h IV Protonix to continue Serial CBC Will follow the patient Thank you very much for the opportunity to participate in the care of this patient Time Spent With Patient Time: Total time spent is greater than 50% in coordination of care (as documented) at patient's floor/unit and/or counseling patient:
[2025-05-06] VITALS (10 sets, daily range): BP systolic 121–135; BP diastolic 62–71; PULSE 56–90; RESP 13–99; TEMP 36.1–37.3; O2SAT 97–99; BMI 25.4; BMI 25.2
[2025-05-06 06:12] LABS: Basophils # (Auto) 0.0 Thou/mm3 (0.0-0.2); Basophils % (Auto) 0 % (0-2.5); Eosinophils # (Auto) 0.2 Thou/mm3 (0.0-0.5); Eosinophils % (Auto) 7 % (0-10); Hematocrit 25.5 % (41.0-53.0); Immature Granulocytes Auto 0.02 Thou/mm3 (0.00-0.00); Lymphocytes # (Auto) 0.6 Thou/mm3 (1.0-4.8); Lymphocytes % (Auto) 22 % (10-50); Mean Corpuscular HGB Conc 33.3 g/dl (31.0-37.0); Mean Corpuscular Hemoglobin 27.8 pg (25.0-35.0); Mean Corpuscular Volume 83 fL (80-100); Monocytes # (Auto) 0.4 Thou/mm3 (0.0-0.8); Monocytes % (Auto) 14 % (0-12); Neutrophils # (Auto) 1.6 Thou/mm3 (1.8-7.7); Neutrophils % (Auto) 55 % (37-80); Nucleated Red Blood Cell # 0.00 Thou/mm3 (0.00-0.00); Nucleated Red Blood Cell % 0 /100 WBC (0); Platelet Count 91 Thou/mm3 (140-440); RDW Standard Deviation 51.4 fL (35.1-43.9); Red Blood Count 3.06 Miln/mm3 (4.50-5.90); White Blood Count 2.9 Thou/mm3 (3.8-10.6)
[2025-05-06 06:21] LABS: Hemoglobin 8.5 g/dL (13.5-16.0)
[2025-05-06 06:42] LABS: Alanine Aminotransferase 29 U/L (10-49); Albumin, Serum 2.6 gm/dL (3.5-5.0); Albumin/Globulin Ratio 1.0 (1.2-2.2); Alkaline Phosphatase 113 U/L (46-116); Anion Gap 10 (7-16); Aspartate Amino Transferase 82 U/L (0-34); BUN/Creatinine Ratio 13 Ratio (12-20); Bilirubin,Total 1.6 mg/dL (0.3-1.2); Blood Urea Nitrogen 10 mg/dL (9-23); Calcium 7.4 mg/dL (8.3-10.6); Calcium (Corrected) 8.5 mg/dL (8.5-10.1); Carbon Dioxide 22.3 mMol/L (20.0-31.0); Chloride 107 mMol/L (98-107); Creatinine (Component) 0.8 mg/dL (0.6-1.3); Estimated Creatinine Clearance 102.1 mL/min (>60); Globulin 2.6 gm/dL (2.3-3.5); Glucose 97 mg/dL (74-106); Magnesium 1.8 mg/dL (1.6-2.6); Osmolality,Calculated 276 (275-295); Phosphorous 3.1 mg/dL (2.4-5.1); Potassium 3.9 mMol/L (3.4-5.1); Sodium 139 mMol/L (136-145); Total Protein 5.2 gm/dL (5.7-8.2); eGFR > 60 See Note
[2025-05-06] MEDS: FOLIC ACID INJ 1 MG/0.2 ML IVP (08:08)
[2025-05-06] MEDS: THIAMINE INJ 100 MG/ML VIAL 2 ML IV (08:09)
[2025-05-06] MEDS: OCTREOTIDE ACET INJ 1,000 MCG in SODIUM CHLORIDE 0.9% 100 ML 5.1 MCG IV (08:43)
--- NOTE | 2025-05-06 10:09 | PC.SS ---
Late note 05-05-25: SS met with patient regarding his d/c plan. Pt is alert/oriented. Pt was admitted for Hematemesis. Pt confirmed demographic and contact information is correct on facesheet. Pt resides with his life partner. Pt ambulates independently without assistance or DME. Pt is ok with all ADLs. Patient?s pharmacy of choice is [facility] on [address]. Pt named his lifer partner, Candy Puentes medical decision maker if he is unable. Patient?s choice is to return home upon d/c. Pt states he is not diabetic and is not on dialysis. Pt followed up with PCP 1 month ago. Per pt, his life partner will provide transportation home. D/C plan: Return home Next of Kin: Candy Harsha, life partner, phone# [phone] PCP: Dr. Eliezer Rosas from [facility] Address: Correct on facesheet
--- NOTE | 2025-05-06 15:19 | ESPR_ITS ---
<Statement entered by Paramjit Anderson MD - 05/10/25 08:36> I reviewed above note and agree with findings and plans. I have also personally examined the patient with medicine team and went over assessment and plan with medical team including physician/internist and resident physician. <Statement entered by Ziyad Alegria MD - 05/06/25 16:01> Patient seen and assessed in hospital bed denies having any concerning symptoms at this time. Patient is able to ambulate, diet has been advanced, having normal bowel movements and urinating without any issues at this time. Patient continues to be on octreotide drip for variceal bleed status post EGD with grade 2 varices banded. Patient understands that he will need close follow-up outpatient and to establish care with a shoulder puncher and will need to completely stop drinking alcohol in order to be placed on the transplant list. Patient's urine cultures are also positive for largely pansensitive E. coli, will discharge with oral antibiotics when appropriate. I have personally seen and examined the patient. I agree with the resident's assessment and plan as documented below. Ziyad Alegria DO PGY-2 Internal Medicine - [facility] Documentation for date of: 05/06/25 Subjective Subjective Interval history: Patient seen and evaluated at bedside; denies any new or concerning symptoms at this time. He is ambulating independently, tolerating an advanced diet, and reports normal bowel movements and adequate urine output. Patient remains on an octreotide drip for management of variceal bleeding, status post EGD showing grade II esophageal varices, which were successfully banded. He has been counseled on the importance of strict alcohol cessation to be considered for liver transplant eligibility and the need for close outpatient follow-up with gastroenterology. Urine culture is positive for largely cortes-sensitive E. coli; plan to transition to appropriate oral antibiotics at discharge. Continue current management and monitor for any new symptoms or changes in clinical status. Exam Vital Signs Temp Pulse Resp BP Pulse Ox O2 Del Method O2 Flow Rate 98.7 F 70 18 131/71 H 99 Room Air 3 05/06/25 12:00 05/06/25 12:00 05/06/25 12:00 05/06/25 12:00 05/06/25 12:00 05/06/25 12:00 05/04/25 15:10 Narrative Exam GENERAL: NAD, AAOx3, pale, jaundice HEENT: Moist mucosa. Eyes open, symmetrical, & clear CARDIO: Heart RRR, no obvious murmurs PULM: No noted coughing/dyspnea CTA B/L, no R/W/R GI: Abdomen soft, nondistended, no pain on palpation. BSx4 SKIN/MSK/EXT: No wounds/rashes/edema/amputations, no pain on palpation. Pedal pulses present B/L NEURO: AAOx3, no focal neuro deficits, able to move all 4 extremities Objective Labs 05/06/25 05:55 05/06/25 05:55 Labs: Laboratory Results - last 24 hr 05/05/25 05/06/25 14:57 05:55 WBC 2.9 L RBC 3.06 L Hgb 8.0 L 8.5 L Hct 24.8 L 25.5 L MCV 83 MCH 27.8 MCHC 33.3 RDW Std Deviation 51.4 H Plt Count 91 L Neut % (Auto) 55 Lymph % (Auto) 22 [place] % (Auto) 14 H Eos % (Auto) 7 Baso % (Auto) 0 Neut # (Auto) 1.6 L Lymph # (Auto) 0.6 L [place] # (Auto) 0.4 Eos # (Auto) 0.2 Baso # (Auto) 0.0 Immature Gran # (Auto) 0.02 H Absolute Nucleated RBC 0.00 Immature Gran % 1 H Nucleated RBC % 0 Sodium 139 Potassium 3.9 Chloride 107 Carbon Dioxide 22.3 Anion Gap 10 BUN 10 Creatinine 0.8 Estim Creat Clear Calc 102.1 eGFR > 60 BUN/Creatinine Ratio 13 Glucose 97 Calculated Osmolality 276 Calcium 7.4 L Corrected Calcium 8.5 Phosphorus 3.1 Magnesium 1.8 Total Bilirubin 1.6 H AST 82 H ALT 29 Alkaline Phosphatase 113 Total Protein 5.2 L Albumin 2.6 L Globulin 2.6 Albumin/Globulin Ratio 1.0 L Quality Measures Quality Measures none Assessment & Plan Assessment Current Active Medications: Generic Name Dose Route Start Last Admin Trade Name Freq PRN Reason Stop Dose Admin Acetaminophen 325 mg 05/03/25 22:06 Acetaminophen 325 Mg Tablet PO 06/02/25 21:31 Q6H PRN Fever >100.4 Acetaminophen 325 mg 05/03/25 22:06 Acetaminophen 325 Mg Tablet PO 06/02/25 21:31 Q6H PRN PAIN SCALE 1-3 (mild Carvedilol 3.125 mg 05/04/25 17:30 05/06/25 08:08 Carvedilol 3.125 Mg Tablet PO 06/03/25 17:29 3.125 mg BIDWM CARLENE Administration Folic Acid 1 mg 05/04/25 14:30 05/06/25 08:08 Folic Acid Inj 1 Mg/0.2 Ml IVP 06/03/25 14:29 1 mg QDAY CARLENE Administration Ceftriaxone Sodium/Dextrose 1 gm in 50 mls @ 100 mls/hr 05/04/25 21:00 05/05/25 20:33 Rocephin/D5w 1gm Iv Premix IV 05/11/25 20:59 100 mls/hr 2100 CARLENE Administration Octreotide Acetate 1,000 mcg/ 102 mls @ 5.1 mls/hr 05/04/25 16:45 05/06/25 08:43 Sodium Chloride IV 05/08/25 19:59 50 mcg/hr .Q20H CARLENE 5.1 mls/hr Protocol Administration 50 MCG/HR Ondansetron HCl 4 mg 05/03/25 21:32 Ondansetron Inj 2 Mg/Ml Inj 2 Ml IVP 06/02/25 21:31 Q6H PRN NAUSEA OR VOMITING Protocol Pantoprazole Sodium 40 mg 05/04/25 09:00 05/06/25 08:10 Pantoprazole Inj 40 Mg Vial IVP 06/03/25 08:59 40 mg BID CARLENE Administration Thiamine HCl 100 mg 05/04/25 15:30 05/06/25 08:09 Thiamine Inj 100 Mg/Ml Vial 2 Ml IV 06/03/25 15:29 100 mg QDAY CARLENE Administration Plan 54-year-old male with history of alcoholic cirrhosis who presented to the ED due to hematemesis and melena. Patient admitted for GI workup for GI bleed. #Acute microcytic anemia 2/2 #Upper GI bleed #Melena #Hematemesis Patient with multiple episodes of hematemesis at least total of 5 episodes Patient also endorses some dark tarry stools onset of both symptoms around 2 to 3 days ago. Hemoglobin on arrival 5.9, MCV 79 Hgb improved to7.2 after 3u pRBC EGD showed: Grade II esophageal varices. Banded. Gastritis, characterized by erythema. With mucosal oozing of blood in the setting of hypertensive portal gastropathy 05/05 Hgb 7 --> transfused 1u pRBC, repeat H&H Plan - Octreotide drip to reduce variceal bleeding x5 days (LD 05/08) - Pantoprazole 40 mg IV twice daily to manage gastric bleeding. - Monitor CBCs regularly. - Transfuse if hemoglobin remains <7. #Decompensated Cirrhotic liver disease #Hx of chronic alcohol use #Hx of esophageal varices status post banding Abdomen is not distended or tender to palpation however will cover prophylactically for SBP Child Escobar Score 8 - Class B: 1 year survival rate of 80% MELD Score 14 - 6% estimated 3 month mortality MADDREY Score 11- No indication for steroid treatment for alcoholic hepatitis - Monitor LFTs ? GI consulted, appreciate recommendations #UTI #Asymptomatic Pyuria Patient denies dysuria, urgency or frequency. UA positive for leukocyte esterase, urine WBC 471. +4 bacteria Urine culture prelim gram-negative rods greater than 100,000 colonies per mL Plan - Continue ceftriaxone 1 g daily while inpatient and transition to PO levoflox at D/C #EtOH Use disorder Unsure when last drink was Plan ? Monitor for withdrawals ? Thiamine 100 mg daily ? Folate 1 mg daily Health Maintenance: Diet: CLD GI prophylaxis: Protonix BID DVT prophylaxis: SCDs Antibiotics: CTX 1g/day CODE STATUS: FULL Disposition: TELE Case discussed with my attending Dr. Anderson, and senior resident, Dr. Raji Lujan MD PGY-1
[2025-05-06] MEDS: cefTRIAXone/D5w 1gm IV premix 1 GM/50 ML BAG IV (20:05)
--- NOTE | 2025-05-06 20:09 | ESPR_ITS ---
Documentation for date of: 05/06/25 Subjective Subjective Interval history: Patient on octreotide drip Hemoglobin hematocrit 8.5 and 25.5 Exam Vital Signs Temp Pulse Resp BP Pulse Ox O2 Del Method O2 Flow Rate 98.3 F 61 20 135/65 H 98 Room Air 3 05/06/25 16:00 05/06/25 19:16 05/06/25 19:16 05/06/25 16:51 05/06/25 16:00 05/06/25 16:00 05/04/25 15:10 Objective Labs 05/06/25 05:55 05/06/25 05:55 Labs: Laboratory Results - last 24 hr 05/06/25 05:55 WBC 2.9 L RBC 3.06 L Hgb 8.5 L Hct 25.5 L MCV 83 MCH 27.8 MCHC 33.3 RDW Std Deviation 51.4 H Plt Count 91 L Neut % (Auto) 55 Lymph % (Auto) 22 [place] % (Auto) 14 H Eos % (Auto) 7 Baso % (Auto) 0 Neut # (Auto) 1.6 L Lymph # (Auto) 0.6 L [place] # (Auto) 0.4 Eos # (Auto) 0.2 Baso # (Auto) 0.0 Immature Gran # (Auto) 0.02 H Absolute Nucleated RBC 0.00 Immature Gran % 1 H Nucleated RBC % 0 Sodium 139 Potassium 3.9 Chloride 107 Carbon Dioxide 22.3 Anion Gap 10 BUN 10 Creatinine 0.8 Estim Creat Clear Calc 102.1 eGFR > 60 BUN/Creatinine Ratio 13 Glucose 97 Calculated Osmolality 276 Calcium 7.4 L Corrected Calcium 8.5 Phosphorus 3.1 Magnesium 1.8 Total Bilirubin 1.6 H AST 82 H ALT 29 Alkaline Phosphatase 113 Total Protein 5.2 L Albumin 2.6 L Globulin 2.6 Albumin/Globulin Ratio 1.0 L Impressions Impression: # Esophageal variceal bleeding requiring band ligation # Hypertensive portal gastropathy with mucosal oozing of blood Complete 5 days of octreotide infusion and then patient to be discharged Assessment & Plan A&P Narrative Hematemesis in the setting of chronic liver disease secondary to alcohol with previous history of band ligation of the esophageal varices Plan Consent obtained for fiberoptic esophagogastroduodenoscopy with possible biopsy possible therapeutic intervention under intravenous moderate sedation IV octreotide at 50 mcg/h IV Protonix to continue Serial CBC Will follow the patient Thank you very much for the opportunity to participate in the care of this patient Time Spent With Patient Time: Total time spent is greater than 50% in coordination of care (as documented) at patient's floor/unit and/or counseling patient:
[2025-05-07] VITALS (7 sets, daily range): BP systolic 111–132; BP diastolic 57–69; PULSE 52–62; RESP 12–19; TEMP 36.6–37.1; O2SAT 97–99; BMI 27.3
[2025-05-07] MEDS: OCTREOTIDE ACET INJ 1,000 MCG in SODIUM CHLORIDE 0.9% 100 ML 5.1 MCG IV (04:30)
[2025-05-07 06:24] LABS: Basophils # (Auto) 0.0 Thou/mm3 (0.0-0.2); Basophils % (Auto) 1 % (0-2.5); Eosinophils # (Auto) 0.3 Thou/mm3 (0.0-0.5); Eosinophils % (Auto) 9 % (0-10); Hematocrit 25.1 % (41.0-53.0); Immature Granulocytes Auto 0.02 Thou/mm3 (0.00-0.00); Lymphocytes # (Auto) 0.8 Thou/mm3 (1.0-4.8); Lymphocytes % (Auto) 28 % (10-50); Mean Corpuscular HGB Conc 32.7 g/dl (31.0-37.0); Mean Corpuscular Hemoglobin 27.4 pg (25.0-35.0); Mean Corpuscular Volume 84 fL (80-100); Monocytes # (Auto) 0.3 Thou/mm3 (0.0-0.8); Monocytes % (Auto) 11 % (0-12); Neutrophils # (Auto) 1.4 Thou/mm3 (1.8-7.7); Neutrophils % (Auto) 51 % (37-80); Nucleated Red Blood Cell # 0.00 Thou/mm3 (0.00-0.00); Nucleated Red Blood Cell % 0 /100 WBC (0); Platelet Count 93 Thou/mm3 (140-440); RDW Standard Deviation 53.3 fL (35.1-43.9); Red Blood Count 2.99 Miln/mm3 (4.50-5.90); White Blood Count 2.8 Thou/mm3 (3.8-10.6)
[2025-05-07 06:27] LABS: Hemoglobin 8.2 g/dL (13.5-16.0)
[2025-05-07 06:35] LABS: Carbon Dioxide 22.7 mMol/L (20.0-31.0); Chloride 108 mMol/L (98-107); Potassium 3.9 mMol/L (3.4-5.1); Sodium 139 mMol/L (136-145)
[2025-05-07 06:36] LABS: Alanine Aminotransferase 28 U/L (10-49); Albumin, Serum 2.6 gm/dL (3.5-5.0); Albumin/Globulin Ratio 0.9 (1.2-2.2); Alkaline Phosphatase 120 U/L (46-116); Anion Gap 8 (7-16); Aspartate Amino Transferase 69 U/L (0-34); BUN/Creatinine Ratio 11 Ratio (12-20); Bilirubin,Total 1.5 mg/dL (0.3-1.2); Blood Urea Nitrogen 8 mg/dL (9-23); Calcium 7.6 mg/dL (8.3-10.6); Calcium (Corrected) 8.7 mg/dL (8.5-10.1); Creatinine (Component) 0.7 mg/dL (0.6-1.3); Estimated Creatinine Clearance 116.7 mL/min (>60); Globulin 2.8 gm/dL (2.3-3.5); Glucose 95 mg/dL (74-106); Magnesium 1.9 mg/dL (1.6-2.6); Osmolality,Calculated 275 (275-295); Phosphorous 3.9 mg/dL (2.4-5.1); Total Protein 5.4 gm/dL (5.7-8.2); eGFR > 60 See Note
--- NOTE | 2025-05-07 09:06 | PC.SS ---
Follow up note: Pt is d/c home today.
[2025-05-07] MEDS: THIAMINE INJ 100 MG/ML VIAL 2 ML IV (09:14)
[2025-05-07] MEDS: FOLIC ACID INJ 1 MG/0.2 ML IVP (09:14)
--- NOTE | 2025-05-07 13:14 | ESDS_ITS ---
<Statement entered by Paramjit Anderson MD - 05/10/25 15:24> I reviewed above note and agree with findings and plans. I have also personally examined the patient with medicine team and went over assessment and plan with medical team including administration intern and resident physician. Planned Discharge Date 05/07/25 DS: Providers Provider Date of admission: 05/03/25 21:32 Primary care physician: Eliezer Rosas MD Admitting Provider: Santos Leigh MD Attending Provider on Admission: Paramjit Anderson MD Consults: 05/03/25 20:48 Consult to Gastroenterology Stat Comment: Consulting Provider: Demarcus Wagner Attending Provider on DC: Ziyad Alegria MD Discharging Provider: Ziyad Alegria MD DS: Diagnosis Problem List Completed Was Problem List Reviewed/Reconciled?: Yes Hospital Course Hospital Course Hospital course: 54-year-old male with past medical history of alcohol use disorder and cirrhosis secondary to alcohol presents to the ED due to episodes of hematemesis. In the ED, patient was tachycardic with normotension but saturating 100% on room air. Pertinent lab findings included hemoglobin of 5.9, hematocrit 18.9, INR 1.5, T. bili of 1.6. In the ED, patient received 2 units of PRBC, loading dose of Protonix and started on octreotide drip for variceal bleed. Gastroenterology was consulted and recommended admission for upper GI bleed from esophageal varices secondary to decompensated liver cirrhosis. On 05/04, patient had EGD which showed grade 2 esophageal varices which were banded, gastritis with hypertensive portal gastropathy. Patient was started and continued octreotide drip, and diet was slowly advanced. Patient remained asymptomatic afterwards and denied having any concerning symptoms. Patient understands that his prognosis is guarded secondary to end-stage liver disease and he will need close outpatient following with the following strict instructions. Please take lactulose 10 g by mouth twice a day to achieve between 2?3 bowel movements a day, if you are having more bowel movements reduce dose to once a day Please take levofloxacin 750 mg by mouth once a day for 5 additional days for urinary tract infection Continue taking carvedilol and pantoprazole Please follow-up with PCP within 1 week of discharge or follow-up at the [facility] [address] [place] [address] Stop drinking alcohol completely and ask your PCP to refer you to a GI specialist, you will need to be 6 months sober in order to be placed on a tr ansplant list as you have end-stage liver disease If your symptoms worsen or if you develop new chest pain, shortness of breath, severe abdominal pain or bleeding - please come back to the ED immediately Hospital Diagnosis: #Acute blood loss anemia secondary to esophageal varices #Decompensated Cirrhotic liver disease #Chronic alcohol use #UTI #Alcohol use disorder Ziyad Alegria DO PGY-2 Internal Medicine - [facility] Status at Discharge Overall status at discharge: patient is progressing back to baseline Time Spent with Patient Time attestation: Total time spent providing and/or coordinating discharge services: 45 minutes Time spent: Greater than 30 minutes Exam Vital Signs Temp Pulse Resp BP Pulse Ox O2 Del Method O2 Flow Rate 98.5 F 52 L 16 129/63 99 Room Air 3 05/07/25 12:00 05/07/25 12:00 05/07/25 12:00 05/07/25 12:00 05/07/25 12:00 05/07/25 12:00 05/04/25 15:10 Narrative Exam GENERAL: NAD, AAOx3, pale, jaundice HEENT: Moist mucosa. Eyes open, symmetrical, & clear CARDIO: Heart RRR, no obvious murmurs PULM: No noted coughing/dyspnea CTA B/L, no R/W/R GI: Abdomen soft, nondistended, no pain on palpation. BSx4 SKIN/MSK/EXT: No wounds/rashes/edema/amputations, no pain on palpation. Pedal pulses present B/L NEURO: AAOx3, no focal neuro deficits, able to move all 4 extremities Discharge Plan Plan Patient Disposition: HOME (Self Care) Care Plan Goals: Please take lactulose 10 g by mouth twice a day to achieve between 2?3 bowel movements a day, if you are having more bowel movements reduce dose to once a day Please take levofloxacin 750 mg by mouth once a day for 5 additional days for urinary tract infection Continue taking carvedilol and pantoprazole Please follow-up with PCP within 1 week of discharge or follow-up at the [facility] [address] [place] [address] Stop drinking alcohol completely and ask your PCP to refer you to a GI specialist, you will need to be 6 months sober in order to be placed on a transplant list as you have end-stage liver disease If your symptoms worsen or if you develop new chest pain, shortness of breath, severe abdominal pain or bleeding - please come back to the ED immediately [place] 10 g de lactulosa por v?a oral dos veces al d?a para lograr de 2 a 3 evacuaciones diarias. Si tiene m?s evacuaciones, reduzca la dosis a sultana vez al d?a. [place] 750 mg de levofloxacino por v?a oral sultana vez al d?a haroon 5 d?as adicionales para la infecci?n del tracto urinario. Contin?e tomando carvedilol y pantoprazol. Consulte con abdalla m?dico de cabecera dentro de la semana posterior al reji o en el [facility] [place] [address], [place], [place] [id number] . Deje de beber alcohol por completo y p?oneil a abdalla m?dico de cabecera que le de sultana referencia a un gastroenter?logo. Deber? estar sobrio haroon 6 meses para ser incluido en la lista de espera para un trasplante, ya que padece sultana enfermedad hep?denise terminal. Si enrico s?ntomas empeoran o presenta dolor en el pecho, dificultad para respirar, dolor abdominal intenso o sangrado, regrese a urgencias de inmediato. Prescriptions/Referrals Prescriptions/Med Rec: New levofloxacin 750 mg tablet 750 mg PO QDAY 5 Days Qty: 5 0RF lactulose [Enulose] 10 gram/15 mL solution 10 ml PO BID Qty: 1200 0RF Continued carvedilol 3.125 mg Tablet 3.125 mg PO BIDWM 30 Days Qty: 60 0RF pantoprazole 40 mg tablet,delayed release (DR/EC) 40 mg PO QDAY Patient Comments: TAKE 1 TABLET BY MOUTH EVERY DAY Referrals: Eliezer Rosas MD [Primary Care Provider, Family Practice] Patient/Caregiver Discharge Instructions Education Materials: Treating Cirrhosis, Understanding Cirrhosis, Alcoholism Resources, Alcoholism: Getting Help Print Language: Bahamian Stand Alone Forms: Nikki Award Info., Patient Portal Info Letter Discharge Order Discharge Orders: Discharge (Routine); Ordered 05/07/25 Ordered By: Ziyad Alegria Quality Discharge Quality Measures VTE prophylaxis
== END 2025-05-07 14:11 | disposition home or self-care (01) | DRG 280 ==
LOC: SERX 20:49 → SERHOLD 21:45 → S2NX 05-04 16:12
PROVIDERS: Nurse Practitioner Family; Specialist; Student in an Organized Health Care Education/Training Program; Admitting Provider Internal Medicine; Emergency Provider Emergency Medicine; PCP Family Medicine; Visit Provider Internal Medicine
PROC: (CPT 43239; principal; 2025-05-04 12:30)
DX: K70.30 Alcoholic cirrhosis of liver without ascites (principal); K76.6 Portal hypertension; N39.0 Urinary tract infection, site not specified; D62 Acute posthemorrhagic anemia; K29.71 Gastritis, unspecified, with bleeding; K31.89 Other diseases of stomach and duodenum; F10.90 Alcohol use, unspecified, uncomplicated; B96.20 Unspecified Escherichia coli [E. coli] as the cause of diseases classified elsewhere; I85.11 Secondary esophageal varices with bleeding; K72.10 Chronic hepatic failure without coma; F10.20 Alcohol dependence, uncomplicated
CPT/HCPCS: 36415; 76700; 80053; 81001; 83690; 83735; 84100; 85014; 85018; 85025; 85610; 85730; 86850; 86900; 86901; 86923; 87077; 87086; 87186; 96365; 96366; 96375; 96376; 99285; A4649; J0696; J1200; J2250; J2354; J2405; J2470; J3010; J3411; J3475; J3480; J3490; J7050; P9016; A9270